=== PATIENT | female | born 1940 | race Caucasian/White ===

== ENCOUNTER 2023-03-04 17:59 | Emergency (ER) | payer MEDICARE, SELFPAY ==
[2023-03-04] VITALS (18 sets, daily range): BP systolic 133–169; BP diastolic 62–87; PULSE 87–95; RESP 16–93; TEMP 36.8; O2SAT 93–95; BMI 29.5
--- NOTE | 2023-03-04 18:14 | ECG_ITS ---
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
--- NOTE | 2023-03-04 18:14 | XR_ITS ---
The [address] [address] Patient Name: CELIO RAMON MRN: [id number] date: 1940 Sex: F Assigned Patient Location: ER Current Patient Location: ER Accession/Order Number: [id number] Exam Date: 03/04/2023 18:30 Report Date: 03/04/2023 18:55 At the request of: KARY CHE Procedure: XR acute abdomen series EXAM: XR acute abdomen series HISTORY: nausea and vomiting COMPARISON: None. TECHNIQUE: Abdominal X-ray, 1 view FINDINGS: Support devices: None. Bowel: Unremarkable bowel gas pattern. No bowel dilatation. Cholecystectomy clips. Surgical sutures are seen along the mid abdomen. Additional findings: Status post right total hip arthroplasty. Bibasilar atelectasis. IMPRESSION: No evidence of bowel obstruction. Electronically authenticated by: MYRANDA GOTTI Date: 03/04/2023 18:55
--- NOTE | 2023-03-04 18:15 | ED.NAVMDI1 ---
HPI - Nausea/Vomiting/Diarrhea General Chief complaint: Nausea/Vomiting/Diarrhea Stated complaint: NAUSEA/VOMITING Time Seen by Provider: 03/04/23 18:05 Source: patient Mode of arrival: law enforcement History of Present Illness HPI Narrative: patient is a 82-year-old female who presents to the emergency department for the evaluation of intermittent feelings of nausea, general bodyaches for the last several months. She saw her doctor yesterday for the symptoms and was ordered to have blood work. She was not prescribed any medications. The medical field representative in the office was not able to obtain a blood specimen so the patient was discharged home with outpatient lab orders. She denies chest pain, shortness of breath. She is agitated at initial interview and is fixated on her relationship with her daughter and how her daughter does not take care of her. She has had no fevers, upper respiratory symptoms, diarrhea. She states she had one episode of emesis earlier today. No medications taken prior to arrival for her symptoms. Related Data Allergies Allergy/AdvReac Type Severity Reaction Status Date / Time No Known Drug Allergies Allergy Verified 03/04/23 18:05 Review of Systems ROS Constitutional Denies: fever or chills Ears, nose, mouth, and throat Denies: throat pain or neck pain Cardiovascular Denies: chest pain Respiratory Denies: shortness of breath or cough Gastrointestinal Reports: nausea and vomiting; Denies: abdominal pain Genitourinary Denies: painful urination Musculoskeletal Denies: back pain Integumentary/Breast Denies: rash Exam Narrative Exam Narrative: Gen.: Awake, alert, in no distress Head: Normocephalic, atraumatic ENT: Moist mucous membranes Respiratory: No respiratory distress, lungs clear bilaterally Cardio: Regular rate and rhythm Gastrointestinal: Abdomen is soft, nondistended and nontender to palpation Extremities: Moves extremities equally, no pedal edema Psych: Normal mood and affect Neuro: No focal neuro deficit Skin: Warm, dry, intact Constitutional Vital Signs - 24 hr 03/04/23 18:08 Temperature 98.2 F Pulse Rate [Monitor] 93 H Respiratory Rate 93 H Blood Pressure [Left Arm] 161/87 H Pulse Oximetry 94 L Oxygen Delivery Method Room Air Course Vital Signs Vital signs: Vital Signs Temperature 98.2 F 03/04/23 18:08 Pulse Rate 93 H 03/04/23 18:08 Respiratory Rate 93 H 03/04/23 18:08 Blood Pressure 161/87 H 03/04/23 18:08 Pulse Oximetry 94 L 03/04/23 18:08 Oxygen Delivery Method Room Air 03/04/23 18:08 Temperature 98.2 F 03/04/23 18:08 Pulse Rate 93 H 03/04/23 18:08 Respiratory Rate 93 H 03/04/23 18:08 Blood Pressure 161/87 H 03/04/23 18:08 Pulse Oximetry 94 L 03/04/23 18:08 Oxygen Delivery Method Room Air 03/04/23 18:08 MDM - Nausea/Vomiting/Diarrhea MDM Narrative Medical decision making narrative: patient was treated with IV fluids, Zofran and abdomen is soft and benign in the emergency department. Patient was found on lab studies have leukocytosis with elevated bilirubin, transaminitis and normal lipase. She initially had abdominal x-rays that were unremarkable and she was sent back for CT of the abdomen and pelvis with IV contrast. This shows the patient has choledocholithiasis with multiple gallstones. I discussed the case with our general surgeon, Dr. Kiran, who recommended the patient be sent out for an ERCP. Patient is in agreement with transfer to [facility]. I discussed the case with nurse practitioner for gastrointestinal and [facility]. Patient was remedicated with Zofran for nausea. She is stable at time of transfer. Zosyn initiated in the emergency department. Critical care time thirty-five minutes Medical Records Attestation: I reviewed the patient's medical records. Lab Data Attestation: I reviewed the patient's lab results. Labs: Lab Results 03/04/23 03/04/23 Range/Units 18:25 20:45 WBC 15.2 H (4.0-11.0) 10^3/uL RBC 4.42 (4.20-5.40) 10^6/uL Hgb 14.1 (12.0-16.0) g/dL Hct 41.2 (36.0-48.0) % MCV 93.2 (81.0-99.0) fL MCH 31.9 (26.7-34.0) pg MCHC 34.2 (29.9-35.2) g/dL RDW 14.7 (11.0-15.0) % Plt Count 328 (150-450) 10^3/uL MPV 9.9 (9.5-13.5) fL Neut % (Auto) 93.8 H (43.0-75.0) % Lymph % (Auto) 2.0 L (20.5-60.0) % [place] % (Auto) 3.5 (1.7-12.0) % Eos % (Auto) 0.0 L (0.9-7.0) % Baso % (Auto) 0.2 (0.2-2.0) % Neut # (Auto) 14.3 H (1.4-6.5) 10^3/uL Lymph # (Auto) 0.3 L (1.2-3.8) 10^3/uL [place] # (Auto) 0.5 (0.3-0.8) 10^3/uL Eos # (Auto) 0.0 (0.0-0.7) 10^3/uL Baso # (Auto) 0.0 (0.0-0.1) 10^3/uL Abs Immat Gran (auto) 0.08 H (0.00-0.03) 10^3/uL Imm/Tot Granulo (auto) 0.5 (0.0-0.5) % Sodium 134 L (136-145) mmol/L Potassium 3.7 (3.5-5.1) mmol/L Chloride 99 (98-107) mmol/L Carbon Dioxide 25.1 (21.0-32.0) mmol/L Anion Gap 13.6 BUN 15.0 (7.0-18.0) mg/dL Creatinine 0.75 (0.55-1.02) mg/dL Est GFR ( Amer) >60 (>=60) Est GFR (Non-Af Amer) >60 (>=60) BUN/Creatinine Ratio 20.0 Glucose 168 H (74-106) mg/dL Lactate 0.8 (0.4-2.0) mmol/L Calcium 9.5 (8.5-10.1) mg/dL Total Bilirubin 5.4 H (0.2-1.0) mg/dL AST 136 H (15-37) U/L ALT 227 H (14-59) U/L Alkaline Phosphatase 940 H (46-116) U/L Troponin I High Sens <4.0 L (4.0-51.3) pg/mL Total Protein 7.8 (6.4-8.2) g/dL Albumin 3.4 (3.4-5.0) g/dL Globulin 4.4 g/dL Albumin/Globulin Ratio 0.8 Lipase 243.0 (73.0-393.0) U/L TSH 1.160 (0.358-3.740) uIU/mL Urine Color Dk. yellow (YELLOW) Urine Clarity Clear (CLEAR) Urine pH 5.5 (5.0-9.0) Ur Specific [place] 1.015 (1.005-1.025) Urine Protein Negative (NEG/TRACE) mg/dL Urine Glucose (UA) Negative (NEGATIVE) mg/dL Urine Ketones 15 A (NEGATIVE) mg/dL Urine Occult Blood Small A (NEGATIVE) Urine Nitrite Negative (NEGATIVE) Urine Bilirubin Small A (NEGATIVE) Urine Urobilinogen 1.0 (0.2-1.0) EU/dL Ur Leukocyte Esterase Negative (NEGATIVE) Urine RBC 2-5 A (0-2) #/HPF Urine WBC None seen (NONE SEEN) #/HPF Ur Squamous Epith Cells Few A (NONE/RARE) #/LPF Urine Crystals None seen (None Seen) #/HPF Urine Bacteria None seen (NONE SEEN) #/HPF Urine Casts Seen A (NONE SEEN) #/LPF Hyaline Casts Rare Urine Mucus None seen (NONE SEEN) Ur Culture Indicated? No Imaging Data Abdominal x-ray: Attestation: I have reviewed the pertinent imaging results. Radiologist's impression: Procedure: XR acute abdomen series EXAM: XR acute abdomen series HISTORY: nausea and vomiting COMPARISON: None. TECHNIQUE: Abdominal X-ray, 1 view FINDINGS: Support devices: None. Bowel: Unremarkable bowel gas pattern. No bowel dilatation. Cholecystectomy clips. Surgical sutures are seen along the mid abdomen. Additional findings: Status post right total hip arthroplasty. Bibasilar atelectasis. IMPRESSION: No evidence of bowel obstruction. Electronically authenticated by: MYRANDA GOTTI Date: 03/04/2023 18:55 CT scan - abdomen: Attestation: I have reviewed the pertinent imaging results. Radiologist's impression: Procedure: CT abdomen pelvis w con EXAM: CT ABDOMEN PELVIS W CON HISTORY: Vomiting and generalized weakness. COMPARISON: None. TECHNIQUE: Enhanced helical acquisition obtained through the abdomen and the pelvis. FINDINGS: Mild nonspecific pulmonary opacities within the included lung bases. The pleural spaces are clear. Multiple gallstones. Intra and extrahepatic biliary ductal dilatation with the common bile duct measuring 1.6 cm in diameter. Choledocholithiasis with multiple calculi identified within the distal common bile duct, the largest calculus measuring approximately 1 cm. The spleen, pancreas and the left adrenal gland are unremarkable. 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 Mild bilateral renal cortical scarring. Left renal cysts, the largest within the superolateral left kidney measuring 6 mm. Moderate-severe diffuse atherosclerotic disease. No enlarged lymph nodes within the abdomen or the pelvis. No ascites or focal intraperitoneal fluid collections. Diverticulosis without radiographic evidence of diverticulitis. Moderate stool burden. The appendix is not identified. IMPRESSION: 1. Choledocholithiasis with associated intra and extrahepatic biliary ductal dilatation. 2. Cholelithiasis. 3. 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 Follow-up assessment with dedicated adrenal MRI could be considered. 4. Diverticulosis without radiographic evidence of diverticulitis. 5. Mild bilateral renal cortical scarring. Subcentimeter left renal cortical cysts. Electronically authenticated by: NENA ASHER Date: 03/04/2023 21:14 ECG Data Attestation: I personally reviewed and interpreted this ECG as follows: (normal sinus rhythm at a rate of ninety-one, no acute ST elevation or ectopy. EKG reviewed by attending physician) ECG interpretation date: 03/04/23 ECG interpretation time: 19:07 Discharge Plan Discharge Chief Complaint: Nausea/Vomiting/Diarrhea Clinical Impression: Choledocholithiasis, Transaminitis, Nausea & vomiting, Cholelithiasis Patient Disposition: [facility] Time of Disposition Decision: 21:37 Discharge Location: [facility] Condition: Good Mode of Transportation: EMS
[2023-03-04 18:32] LABS: Basophils Percent Auto 0.2 % (0.2-2.0); Hematocrit 41.2 % (36.0-48.0); Hemoglobin 14.1 g/dL (12.0-16.0); Immature Granulocytes Abs Auto 0.08 10^3/uL (0.00-0.03); Immature Granulocytes Pct Auto 0.5 % (0.0-0.5); Lymphocytes Absolute Auto 0.3 10^3/uL (1.2-3.8); Mean Corpuscular HGB Conc 34.2 g/dL (29.9-35.2); Mean Corpuscular Hemoglobin 31.9 pg (26.7-34.0); Mean Corpuscular Volume 93.2 fL (81.0-99.0); Mean Platelet Volume 9.9 fL (9.5-13.5); Monocytes Absolute Auto 0.5 10^3/uL (0.3-0.8); Monocytes Percent Auto 3.5 % (1.7-12.0); Neutrophils Absolute Auto 14.3 10^3/uL (1.4-6.5); Neutrophils Percent Auto 93.8 % (43.0-75.0); Platelet Count 328 10^3/uL (150-450); Red Blood Count 4.42 10^6/uL (4.20-5.40); Red Cell Distribution Width 14.7 % (11.0-15.0); White Blood Count 15.2 10^3/uL (4.0-11.0)
[2023-03-04 18:46] LABS: Albumin Globulin Ratio 0.8; Anion Gap 13.6; Globulin 4.4 g/dL
[2023-03-04 18:48] LABS: Lactate/Lactic Acid 0.8 mmol/L (0.4-2.0)
[2023-03-04] MEDS: ONDANSETRON PF 4 MG/2 ML VIAL IV ×2 (18:49→21:29)
[2023-03-04] MEDS: 0.9 % SODIUM CHLORIDE 1,000 ML 999 ML IV (18:49)
[2023-03-04] MEDS: FAMOTIDINE/PF 20 MG/2 ML VIAL IV (18:49)
[2023-03-04 18:55] LABS: Alanine Aminotransferase 227 U/L (14-59); Albumin Level 3.4 g/dL (3.4-5.0); Alkaline Phosphatase 940 U/L (46-116); Aspartate Amino Transferase 136 U/L (15-37); Bilirubin Total 5.4 mg/dL (0.2-1.0); Calcium 9.5 mg/dL (8.5-10.1); Carbon Dioxide 25.1 mmol/L (21.0-32.0); Chloride 99 mmol/L (98-107); Estimated GFR (African America >60 (>=60); Estimated GFR (Non-African Ame >60 (>=60); Glucose 168 mg/dL (74-106); Potassium 3.7 mmol/L (3.5-5.1); Sodium 134 mmol/L (136-145); Total Protein 7.8 g/dL (6.4-8.2); Troponin I High Sensitivity <4.0 pg/mL (4.0-51.3)
--- NOTE | 2023-03-04 19:00 | CT_ITS ---
The [facility] [address] [place], [place] [address] Patient Name: CELIO RAMON MRN: [id number] date: 1940 Sex: F Assigned Patient Location: ER Current Patient Location: ED.MAIN Accession/Order Number: [id number] Exam Date: 03/04/2023 18:20 Report Date: 03/04/2023 21:14 At the request of: KARY CHE Procedure: CT abdomen pelvis w con EXAM: CT ABDOMEN PELVIS W CON HISTORY: Vomiting and generalized weakness. COMPARISON: None. TECHNIQUE: Enhanced helical acquisition obtained through the abdomen and the pelvis. FINDINGS: Mild nonspecific pulmonary opacities within the included lung bases. The pleural spaces are clear. Multiple gallstones. Intra and extrahepatic biliary ductal dilatation with the common bile duct measuring 1.6 cm in diameter. Choledocholithiasis with multiple calculi identified within the distal common bile duct, the largest calculus measuring approximately 1 cm. The spleen, pancreas and the left adrenal gland are unremarkable. 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 Mild bilateral renal cortical scarring. Left renal cysts, the largest within the superolateral left kidney measuring 6 mm. Moderate-severe diffuse atherosclerotic disease. No enlarged lymph nodes within the abdomen or the pelvis. No ascites or focal intraperitoneal fluid collections. Diverticulosis without radiographic evidence of diverticulitis. Moderate stool burden. The appendix is not identified. IMPRESSION: 1. Choledocholithiasis with associated intra and extrahepatic biliary ductal dilatation. 2. Cholelithiasis. 3. 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 Follow-up assessment with dedicated adrenal MRI could be considered. 4. Diverticulosis without radiographic evidence of diverticulitis. 5. Mild bilateral renal cortical scarring. Subcentimeter left renal cortical cysts. Electronically authenticated by: NENA ASHER Date: 03/04/2023 21:14
[2023-03-04 21:14] LABS: Bilirubin Urine SMALL (NEGATIVE); Blood Urine SMALL (NEGATIVE); Clarity Urine CLEAR (CLEAR); Color Urine DK. YELLOW (YELLOW); Glucose Urine UA NEGATIVE (NEGATIVE); Ketones Urine 15 mg/dL (NEGATIVE); Leukocyte Esterase Urine NEGATIVE (NEGATIVE); Nitrite Urine NEGATIVE (NEGATIVE); Protein Urine NEGATIVE (NEG/TRACE); Specific Gravity Urine 1.015 (1.005-1.025); pH Urine 5.5 (5.0-9.0)
[2023-03-04 21:15] LABS: Urine Microscopic Indicated YES
[2023-03-04 21:21] LABS: WBC Urine NONE SEEN #/HPF (NONE SEEN)
[2023-03-04 21:22] LABS: Bacteria Urine NONE SEEN #/HPF (NONE SEEN); Cast Seen? SEEN #/LPF (NONE SEEN); Crystals Seen? None Seen #/HPF (None Seen); Hyaline Casts Urine RARE; Mucus Urine NONE SEEN (NONE SEEN); Squamous Epithelial Cell Urine FEW #/LPF (NONE/RARE); Urine Culture Indicated NO
[2023-03-04] MEDS: PIPERACILLIN SODIUM/TAZOBACTAM 4.5 GM in 0.9 % SODIUM CHLORIDE 50 ML IV (22:22)
[2023-03-05] MEDS: ACETAMINOPHEN 500 MG TABLET 1000 MG PO (00:15)
== END 2023-03-05 00:30 | disposition short-term general hospital (02) ==
PROVIDERS: Physician Assistant; Emergency Provider Emergency Medicine; PCP Family Medicine
DX: K80.70 Calculus of gallbladder and bile duct without cholecystitis without obstruction (principal); R11.2 Nausea with vomiting, unspecified; R74.01 Elevation of levels of liver transaminase levels
CPT/HCPCS: 36415; 74022; 74177; 80053; 81003; 81015; 83605; 83690; 84443; 84484; 85025; 93005; 96374; 96375; 96376; 99285; Q9967

== ENCOUNTER 2024-05-09 00:31 | Emergency (ER) | payer MEDICARE, SELFPAY ==
[2024-05-09 00:34] VITALS: BP 160/80; PULSE 64; TEMP 36.7; O2SAT 99; BMI 34.3
--- NOTE | 2024-05-09 00:48 | ED_ITS ---
HPI HPI - Back Pain/Injury General Chief Complaint: Back Pain/Injury Stated Complaint: back pain Time Seen by Provider: 05/09/24 00:41 Source: patient Mode of arrival: walk-in Limitations: no limitations History of Present Illness HPI Narrative: presents complaining of left sciatica pain for past month. Seen by her PCP and prescribed ibuprofen and tylenol without relief. Seen at another ER and given methadone. She was unhappy with the methadone. States hard to sleep because of the pain. States she does not want a narcotic for the pain. No leg weakness or numbness. No loss of control of bowel or bladder Related Data Home Medications ?Medication ?Instructions ?Recorded ?Confirmed amlodipine 5 mg tablet mg 05/09/24 atorvastatin 10 mg tablet mg 05/09/24 ibuprofen 600 mg tablet mg 05/09/24 lisinopril 40 mg tablet mg 05/09/24 Allergies Allergy/AdvReac Type Severity Reaction Status Date / Time No Known Drug Allergies Allergy Verified 03/04/23 18:05 Opioid HPI Opioid Management Most Recent Opioid Data: No Data to Display Review of Systems ROS Status of ROS 10 or more systems reviewed and unremark able except as noted in history and below Exam Constitutional Vital Signs, click to edit/add: Last Vital Signs Temp 98.1 F 05/09/24 00:34 Pulse 64 05/09/24 00:34 Resp 16 05/09/24 00:34 BP 160/80 H 05/09/24 00:34 Pulse Ox 99 05/09/24 00:34 O2 Del Method Room Air 05/09/24 00:34 Common normals: no apparent distress, average body habitus, oriented x3, no limitations, healthy appearing, alert and well nourished [facility] Common normals: normocephalic and head/scalp atraumatic Eye Common normals: PERRL, EOMs intact bilaterally and conjunctivae normal Respiratory Common normals: normal respiratory effort, no retractions and no use of accessory muscles Cardio Common normals: regular rate, regular rhythm, S1 normal heart sound and S2 normal heart sound GI Common normals: Normal to inspection, nondistended, normoactive bowel sounds present, soft to palpation and non-tender Back & Pelvis Other: left SI tenderness. reproduces pain. No lumbar spine tenderness Extremity Common normals: normal to inspection and full ROM Neuro Common normals: oriented x3, CN's II-XII intact bilaterally, moves all extremities, no focal motor deficits and no sensory deficits noted Psych Appearance: grossly normal Course Vital Signs Vital signs: Vital Signs Temperature 98.1 F 05/09/24 00:34 Pulse Rate 64 05/09/24 00:34 Respiratory Rate 16 05/09/24 00:34 Blood Pressure 160/80 H 05/09/24 00:34 Pulse Oximetry 99 05/09/24 00:34 Oxygen Delivery Method Room Air 05/09/24 00:34 Temperature 98.1 F 05/09/24 00:34 Pulse Rate 64 05/09/24 00:34 Respiratory Rate 16 05/09/24 00:34 Blood Pressure 160/80 H 05/09/24 00:34 Pulse Oximetry 99 05/09/24 00:34 Oxygen Delivery Method Room Air 05/09/24 00:34 MDM - Back Pain/Injury MDM Narrative Medical decision making narrative: presents with left sciatica pain. Pain radiating from left SI joint down her left leg to her foot. No ext weakness. Hard to sleep because of the pain treated in the department and the pain persist but is more tolerable. She is not wanting narcotics for the pain. prescribed Neurontin and discharged home Discharge Plan Discharge Chief Complaint: Back Pain/Injury Clinical Impression: Sciatica Patient Disposition: Home, Self-Care Prescriptions / Home Meds: No Action atorvastatin 10 mg tablet amlodipine 5 mg tablet ibuprofen 600 mg tablet lisinopril 40 mg tablet Print Language: Romanian Instructions: Sciatica (ED) Additional Instructions: follow up with your doctor next week for recheck Referrals: SOCTT DEL VALLE [Primary Care Provider] - 1 week
[2024-05-09] MEDS: GABAPENTIN 300 MG CAPSULE PO (01:19)
[2024-05-09] MEDS: METHYLPREDNISOLONE SOD SUCC PF 125 MG/2 ML VIAL IVP (01:21)
[2024-05-09] MEDS: MAGNESIUM SULFATE IN WATER 2 GM/50 ML PREMIX IV (01:38)
[2024-05-09] MEDS: KETOROLAC TROMETHAMINE 30 MG/ML VIAL IVP (02:59)
== END 2024-05-09 03:18 | disposition home or self-care (01) ==
PROVIDERS: Emergency Provider Internal Medicine; PCP Family Medicine
DX: M54.32 Sciatica, left side (principal)
CPT/HCPCS: 80048; 85652; 86140; 96365; 96375; 99284; J1885; J2919; J3475

== ENCOUNTER 2024-05-25 16:02 | Outpatient (RCR) | payer MEDICARE, SELFPAY | END 2024-07-03 15:26 | disposition home or self-care (01) | LOC: PT 16:02 | PROVIDERS: PCP Family Medicine; Visit Provider Family Medicine | DX: M79.605 Pain in left leg (principal); M54.32 Sciatica, left side; M21.70 Unequal limb length (acquired), unspecified site; M79.18 Myalgia, other site | CPT/HCPCS: 97035; 97110; 97140; 97161; G0283 ==

== ENCOUNTER 2024-07-26 14:17 | Outpatient (OUT) | payer MEDICARE, SELFPAY ==
--- NOTE | 2024-07-26 15:50 | P.CN_ITS ---
Consult Note: HPI Data of Consult Patient: new to practice Consult date: 07/26/24 Requesting Physician: Edwin Tolentino MD Primary Care Provider: SCOTT DEL VALLE Consult Narrative Reason for consult: left low back pain Narrative: 84yof who presents for evaluation. longstanding low back L>R and bilateral lower extremity pain. has completed PT >6 weeks. no recent imaging available for review. uses otc pain meds as needed. cc:: CC: Edwin Tolentino MD Review of Systems ROS Status of ROS 10 or more systems reviewed and unremark able except as noted in history and below Meds Home Medications and Allergies Home Medications ?Medication ?Instructions ?Recorded ?Confirmed ?Type amlodipine 5 mg tablet 5 mg PO DAILY 05/09/24 07/26/24 History atorvastatin 10 mg tablet 10 mg PO DAILY 05/09/24 07/26/24 History ibuprofen 600 mg tablet 600 mg PO Q12H PRN pain 05/09/24 07/26/24 History lisinopril 40 mg tablet 40 mg PO DAILY 05/09/24 07/26/24 History acetaminophen 325 mg tablet 650 mg PO Q6H PRN pain 07/26/24 07/26/24 History (Tylenol) celecoxib 200 mg capsule (Celebrex) 200 mg PO BID 07/26/24 07/26/24 History fluticasone propionate 50 1 spray intranasal DAILY PRN 07/26/24 07/26/24 History mcg/actuation nasal allergy symptoms spray,suspension (Flonase Allergy Relief) furosemide 40 mg tablet (Lasix) 40 mg PO DAILY 07/26/24 07/26/24 History magnesium aspart,citrate,oxide 400 mg PO DAILY 07/26/24 07/26/24 History multivitamin 1 tab PO DAILY 07/26/24 07/26/24 History spironolactone 50 mg tablet 50 mg PO DAILY 07/26/24 07/26/24 History (Aldactone) tizanidine 4 mg capsule (Zanaflex) 4 mg PO Q8H 07/26/24 07/26/24 History Allergies Allergy/AdvReac Type Severity Reaction Status Date / Time No Known Drug Allergies Allergy Verified 03/04/23 18:05 Exam Narrative Exam Narrative: Psych-alert and oriented x 3. Attentive and appropriate, constitutionally normal, displays normal mood and affect per situation.? There are no obvious deficits in memory, reasoning, or intellect.? Skin-no obvious rashes, bruising, erythema noted to the patient's area of pain. Extremities- extremities are warm with minimal edema and palpable pulses. Lumbar-no significant tenderness to palpation noted in the lumbar spine and paraspinal musculature.? Pain is elicited with extension, and lateral rotation of the lumbar spine. Range of motion is slightly diminished with these motions due to pain. Facet loading maneuvers are positive bilaterally and do appear to be concordant with the patient's normal complaints of pain.? Coordination remains intact.? Gait remains non-antalgic. Assessment and Plan Assessment and Plan (1) Lumbar stenosis with neurogenic claudication: (2) Lumbar spondylosis: Plan 84yof who presents for evaluation. failed conservative measures, as noted. given symptoms and exam, will have her undergo xr of sacrum and bilateral hips. she is scheduled for lumbar mri on 07/28. she is in agreement. meds reviewed, no changes. follow up after imaging complete.
== END 2024-07-26 14:18 | disposition home or self-care (01) ==
PROVIDERS: PCP Family Medicine; Visit Provider Anesthesiology
DX: M48.062 Spinal stenosis, lumbar region with neurogenic claudication (principal); M47.816 Spondylosis without myelopathy or radiculopathy, lumbar region
CPT/HCPCS: G0463

== ENCOUNTER 2024-07-28 12:26 | Outpatient (OUT) | payer MEDICARE, SELFPAY ==
--- NOTE | 2024-07-28 12:35 | MR_ITS ---
[address] [address] Patient Name: CELIO RAMON MRN: [facility]:[id number] date: 1940 Sex: F Assigned Patient Location: MRI Current Patient Location: Accession/Order Number: [id number] Exam Date: 07/28/2024 13:00 Report Date: 07/29/2024 08:50 At the request of: SCOTT DEL VALLE Procedure: MR lumbar spine wo con EXAMINATION: MR lumbar spine wo con HISTORY: lumbar radiculopathy m54.6 ; persistent tingling and numbness in bilateral lower extremities. COMPARISON: CT abdomen pelvis 03/04/2023 TECHNIQUE: A variety of imaging planes and parameters were utilized for visualization of suspected pathology. FINDINGS: For the purposes of numbering, sagittal T2 image # 9 extends from the T10 vertebral body superiorly to the S3 level inferiorly. PARASPINAL AREA: 4.0 cm right adrenal mass. BONES: Mild left convex curvature of thoracolumbar spine. No fracture, spondylolisthesis, bone lesion. CORD/CAUDA EQUINA: Normal caliber, contour, and signal intensity. DISC LEVELS: 12-L1: Early degenerative disc disease is present without focal protrusion or neural impingement. L1-L2: Mild foramen narrowing bilaterally without significant central canal narrowing. Mild diffuse disc bulging without disc height reduction. Mild degenerative facet arthropathy bilaterally. L2-L3: Mild central canal and moderate right foramen narrowing. Mild left foramen narrowing. Moderate diffuse disc bulging and mild disc height reduction. Mild-moderate degenerative facet arthropathy bilaterally. L3-L4: Moderate central canal narrowing. Moderate-marked right foramen, moderate left foramen narrowing. Prominent posterior disc osteophyte complex and moderate disc height reduction. Moderate degenerative facet arthropathy bilaterally. L4-L5: Mild central canal narrowing. Mild right, moderate left foramen narrowing. Moderate diffuse disc bulging and moderate disc height reduction. Marked degenerative facet arthropathy, left greater than right. L5-S1: Marked left foramen narrowing. No significant central canal or right foramen narrowing. Moderate diffuse disc bulging eccentric to the left. Moderate right, marked left degenerative facet arthropathy. MR/MR lumbar spine wo con IMPRESSION: 1. L5-S1 marked left foramen narrowing secondary to degenerative disc disease and facet arthropathy. 2. Multilevel moderate foramen narrowing as detailed above. Electronically authenticated by: ORIANA LAURENT Date: 07/29/2024 08:50
== END 2024-07-28 12:27 | disposition home or self-care (01) ==
LOC: MRI 12:28
PROVIDERS: PCP Family Medicine; Visit Provider Family Medicine
DX: M54.16 Radiculopathy, lumbar region (principal)
CPT/HCPCS: 72148

== ENCOUNTER 2024-08-04 12:20 | Outpatient (OUT) | payer MEDICARE, SELFPAY ==
--- NOTE | 2024-08-04 13:01 | P.CN_ITS ---
Consult Note: HPI Data of Consult Patient: known to practice within the last 3 years Consult date: 07/26/24 Requesting Physician: Juliana Rebollar NP Primary Care Provider: SCOTT DEL VALLE Consult Narrative Reason for consult: left low back pain Narrative: Vianca Jackson an agitated 84 year old female who presents for evaluation. longstanding low back L>R and bilateral lower extremity pain. has completed PT >6 weeks. recently underwent lumbar MRI with results below, pt did not complete xray imaging that was previously ordered. uses otc pain meds as needed. is not interested in medication management due to side effects. cc:: CC: Juliana Rebollar NP Review of Systems ROS Status of ROS 10 or more systems reviewed and unremark able except as noted in history and below Musculoskeletal Reports: back pain, extremity pain and joint pain Meds Home Medications and Allergies Home Medications ?Medication ?Instructions ?Recorded ?Confirmed ?Type amlodipine 5 mg tablet 5 mg PO DAILY 05/09/24 07/26/24 History atorvastatin 10 mg tablet 10 mg PO DAILY 05/09/24 07/26/24 History ibuprofen 600 mg tablet 600 mg PO Q12H PRN pain 05/09/24 07/26/24 History lisinopril 40 mg tablet 40 mg PO DAILY 05/09/24 07/26/24 History acetaminophen 325 mg tablet 650 mg PO Q6H PRN pain 07/26/24 07/26/24 History (Tylenol) celecoxib 200 mg capsule (Celebrex) 200 mg PO BID 07/26/24 07/26/24 History fluticasone propionate 50 1 spray intranasal DAILY PRN 07/26/24 07/26/24 History mcg/actuation nasal allergy symptoms spray,suspension (Flonase Allergy Relief) furosemide 40 mg tablet (Lasix) 40 mg PO DAILY 07/26/24 07/26/24 History magnesium aspart,citrate,oxide 400 mg PO DAILY 07/26/24 07/26/24 History multivitamin 1 tab PO DAILY 07/26/24 07/26/24 History spironolactone 50 mg tablet 50 mg PO DAILY 07/26/24 07/26/24 History (Aldactone) tizanidine 4 mg capsule (Zanaflex) 4 mg PO Q8H 07/26/24 07/26/24 History Allergies Allergy/AdvReac Type Severity Reaction Status Date / Time No Known Drug Allergies Allergy Verified 03/04/23 18:05 Exam Constitutional Documenting provider has reviewed patient's vital signs: yes Common normals: no apparent distress, oriented x3, healthy appearing, alert and well nourished General appearance: cooperative HENMT Common normals: normocephalic, hearing grossly normal bilaterally and moist oral mucous membranes Head and scalp: normocephalic Eye Common normals: PERRL Pupil: PERRL Neck & C-Spine Common normals: full ROM General: normal visual inspection Chest Common normals: inspection of chest normal Respiratory Common normals: normal respiratory effort, no retractions and no use of accessory muscles Back & Pelvis Lumbar spine/lower back: ROM limited, pain with ROM and straight leg raise positive left; straight leg raise negative right Sacroiliac joints: SI joint(s) abnormal Other: left positive colton(patricks), gaenslens, thigh thrust, compression test strength 5/5 in BLE positive facet loading Extremity Common normals: normal to inspection and full ROM Neuro Common normals: oriented x3, CN's II-XII intact bilaterally, moves all extremities, no focal motor deficits, no sensory deficits noted, deep tendon reflexes 2+ bilaterally and gait normal Sensorium/orientation: alert Motor exam: strength 5/5 throughout and no movement abnormalities noted Psych Common normals: mental status grossly normal, thought process normal, affect normal, speech normal and activity/motor behavior normal Attitude: evasive and agitated; not calm and not aggressive Speech: normal speech Thought process: normal thought process Results Imaging Lumbar MRI : Attestation: I have reviewed the pertinent imaging results. Radiologist's impression: 12-L1: Early degenerative disc disease is present without focal protrusion or neural impingement. L1-L2: Mild foramen narrowing bilaterally without significant central canal narrowing. Mild diffuse disc bulging without disc height reduction. Mild degenerative facet arthropathy bilaterally. L2-L3: Mild central canal and moderate right foramen narrowing. Mild left foramen narrowing. Moderate diffuse disc bulging and mild disc height reduction. Mild-moderate degenerative facet arthropathy bilaterally. L3-L4: Moderate central canal narrowing. Moderate-marked right foramen, moderate left foramen narrowing. Prominent posterior disc osteophyte complex and moderate disc height reduction. Moderate degenerative facet arthropathy bilaterally. L4-L5: Mild central canal narrowing. Mild right, moderate left foramen narrowing. Moderate diffuse disc bulging and moderate disc height reduction. Marked degenerative facet arthropathy, left greater than right. L5-S1: Marked left foramen narrowing. No significant central canal or right foramen narrowing. Moderate diffuse disc bulging eccentric to the left. Moderate right, marked left degenerative facet arthropathy. Additional Findings Additional findings: If on a controlled substance or opioids, I have checked an [place] report on this patient and there are no aberrancies noted in the prescribing history.??If on a controlled substance or opioid a drug screen was completed and reviewed within the last year, and if there has not been a drug screen completed we ordered one today to monitor higher risk, state monitored pain medication use. As part of providing excellent, safe, comprehensive care, the following was completed at our patient's visit: 1. A medication reconciliation and review to ensure accurate knowledge of current/active medications, including asking our patients to inform us about any [id number] medications or herbal remedies/nutritional supplements/alternative remedies. 2. A review to specifically ensure our patients have had annual screening for screening for depression, screening for tobacco use, and screening for unhealthy alcohol use. For concerning screenings had a discussion with the patient, provided patient education, and recommended follow-up with primary care provider when appropriate. If patient noted with a risk of falling, they received education on strength, gait, and balance training to prevent future risk of falling. Assessment and Plan Assessment and Plan (1) Lumbar stenosis with neurogenic claudication: (2) Sacroiliitis: (3) Lumbar spondylosis: Plan Lumbar MRI reviewed with pt and daughter, pt very agitated and wants to discuss BLE. I redirected the pt and advised her to f/u with her PCP. pt agreeable to left L4-5 L5-S1 TFESI under fluoroscopy, consider left SIJ injection if needed defer medication management per pt request f/u after injection
== END 2024-08-04 12:21 | disposition home or self-care (01) ==
LOC: PM 12:21
PROVIDERS: PCP Family Medicine; Visit Provider Nurse Practitioner
DX: M25.551 Pain in right hip (principal); M25.552 Pain in left hip; M54.50 Low back pain, unspecified; Z96.641 Presence of right artificial hip joint; M48.062 Spinal stenosis, lumbar region with neurogenic claudication; M46.1 Sacroiliitis, not elsewhere classified; M47.816 Spondylosis without myelopathy or radiculopathy, lumbar region
CPT/HCPCS: 72220; 73522; G0463

== ENCOUNTER 2024-08-04 13:24 | Outpatient (OUT) | payer MEDICARE, SELFPAY ==
--- NOTE | 2024-08-04 13:51 | XR_ITS ---
The [address] [address] Patient Name: CELIO RAMON MRN: [id number] date: 1940 Sex: F Assigned Patient Location: [facility] Current Patient Location: [facility] Accession/Order Number: [id number] Exam Date: 08/04/2024 14:05 Report Date: 08/04/2024 15:27 At the request of: ANI OGLESBY Procedure: XR hip OJ EXAMINATION: XR hip OJ HISTORY: Hip Pain, Lumbago COMPARISON: No relevant comparison available. FINDINGS: RIGHT FINDINGS: BONES: Total hip arthroplasty with a long stem femoral component and cerclage wires. No acute fracture, dislocation or mechanical failure SOFT TISSUES: Negative. No visible soft tissue swelling. OTHER: Negative. LEFT FINDINGS: BONES: Mild to moderate osteoarthropathy with joint space narrowing and marginal osteophyte formation SOFT TISSUES: Negative. No visible soft tissue swelling. OTHER: Negative. XR/XR hip OJ IMPRESSION: RIGHT CONCLUSION: Arthroplasty LEFT CONCLUSION: Mild to moderate arthritis Electronically authenticated by: SEJAL MEIER Date: 08/04/2024 15:27
--- NOTE | 2024-08-04 13:51 | XR_ITS ---
The [address] [address] Patient Name: CELIO RAMON MRN: [id number] date: 1940 Sex: F Assigned Patient Location: [facility] Current Patient Location: Accession/Order Number: [id number] Exam Date: 08/04/2024 14:05 Report Date: 08/05/2024 07:41 At the request of: ANDRI GIEDRAITIS Procedure: XR sacrum coccyx min 2V PROCEDURE: XR sacrum coccyx min 2V COMPARISON: None. HISTORY: Hip Pain, Lumbago FINDINGS: SACRUM: No fracture, disruption of the sacral ala line, or cortical irregularity. COCCYX: No fracture or suspicious alignment. SOFT TISSUES: No widening of the sacroiliac joints. No radiopaque foreign body. OTHER: Degenerative changes of the spine XR/XR sacrum coccyx min 2V IMPRESSION: No acute abnormality Electronically authenticated by: SEJAL MEIER Date: 08/05/2024 07:41
== END 2024-08-04 13:25 | disposition home or self-care (01) ==
LOC: RAD 13:27
PROVIDERS: PCP Family Medicine; Visit Provider Anesthesiology
DX: M25.551 Pain in right hip (principal); M25.552 Pain in left hip; M54.50 Low back pain, unspecified; Z96.641 Presence of right artificial hip joint
CPT/HCPCS: 72220; 73522

== ENCOUNTER 2024-08-16 10:20 | Day surgery (SDC) | payer MEDICARE, SELFPAY ==
[2024-08-16 10:31] VITALS: BP 152/86; PULSE 83; TEMP 36.3; O2SAT 99
--- OUTSIDE RECORDS SUMMARY | 2024-08-16 10:44 | XMS_ITS | CCD ---
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 FINDINGS: Vertebral heights are normal. There is no evidence of compression fracture, spondylolisthesis or acute bony pathology. There is a levoscoliosis. There are diffuse and advanced disc degenerative changes in the lower thoracic and lumbar spine with hypertrophic osteophytes and reduction of disc spaces at all levels. Pedicles are intact. Mild facet arthropathy seen in the lower lumbar region. Both sacroiliac joints are intact. There are aortic calcifications. There is evidence of prior cholecystectomy. IMPRESSION: * Diffusion advance degenerative changes in the lower thoracic and lumbar spine with hypertrophic osteophytes and reduction of disc spaces at all levels in the lumbar region. Facet arthropathy seen in the lower lumbar spine. * Levoscoliosis but no evidence of spondylolisthesis or acute bony pathology. Finalized by Karson Ty MD on 05/01/2024 11:15 AM Normal [facility] CALCIUMon 01-15-2024 Calcium [Mass/Vol] 9.2 mg/dL Normal 8.5-10.5 [facility] Comment on above: Performed By: #### 1 7861-6, [employer], 21594-4 #### [facility] ([id number]) [address], [address] [place] [address] CREATININEon 01-15-2024 Creatinine [Mass/Vol] 0.69 mg/dL Normal 0.40-1.00 [facility] Comment on above: Result Comment: METH OD TRACEABLE TO IDMS STANDARD Performed By: #### 1 7861-6, [employer], 76264-3 #### [facility] ([id number]) [address], [address] [place] [address] GFR/1.73 sq M.predicted among non-blacks MDRD (S/P/Bld) [Vol rate/Area] 86 mL/min/{1.73_m2} Normal >59 [facility] Comment on above: Result Comment: Reported eGFR is based on the CKD-EPI 2020 equation that does not use a race coefficient. Performed By: #### 1 7861-6, [employer], 62192-8 #### [facility] ([id number]) [address], [address] [place] [address] Vitamin D+Metabolites [Mass/ Vol]on 01-15-2024 VITAMIN D 25 HYD TOT 39.4 ng/mL Normal 30-100 [facility] Comment on above: Result Comment: Vitamin D status 25 [place] Vitamin D Deficiency <20 ng/mL Insufficiency 20-29 ng/mL Sufficiency 30-100 ng/mL Toxicity >100 ng/mL NOTE: A pediatric reference range has not been established by the setter juice packaging machines of this kit. The [place] [employer] recommends a Vitamin D level of = or >20ng/mL in infants and children. Performed By: #### 1 7861-6, [employer], 80032-6 #### [facility] ([id number]) [address], [address] [place] [address] DXA Skeletal system Views fo r bone densityon 11-10-2023 [facility] Radiology Study observation (narrative) [facility] CBC without diffon Erythrocyte distribution width (RBC) [Ratio] 13.5 % 11.5 - 15.0 % [facility] Hematocrit (Bld) [Volume fraction] 42.8 % 35 - 47 % [facility] Hemoglobin (Bld) [Mass/Vol] 14.5 g/dL 11.7 - 15.5 g/dL [facility] MCH (RBC) [Entitic mass] 32.2 pg 27 - 34 pg [facility] MCHC (RBC) [Mass/Vol] 33.9 g/dL 32 - 36 g/dL [facility] MCV (RBC) [Entitic vol] 95 fL 80 - 100 fL [facility] Platelet mean volume (Bld) [Entitic vol] 8.9 fL 7 - 12 fL [facility] Platelets (Bld) [#/Vol] 278 10*3/uL [facility] RBC (Bld) [#/Vol] 4.50 10*6/uL [facility] WBC corrected for nucl RBC Auto (Bld) [#/Vol] 6.2 [facility] COMPLETE BLOOD COUNTon 09-30 Erythrocyte distribution width (RBC) [Ratio] 13.5 % Normal 11.5-15.0 [facility] Comment on above: Performed By: #### 3 016-3, 33000-5, CBC, CMP #### [facility] ([id number]) [address], [address] [place] [address] Hematocrit (Bld) [Volume fraction] 42.8 % Normal 35-47 [facility] Comment on above: Performed By: #### 3 016-3, 60558-2, CBC, CMP #### [facility] ([id number]) [address], [address] [place] [address] Hemoglobin (Bld) [Mass/Vol] 14.5 g/dL Normal 11.7-15.5 [facility] Comment on above: Performed By: #### 3 016-3, 45734-4, CBC, CMP #### [facility] ([id number]) [address], [address] [place] [address] MCH (RBC) [Entitic mass] 32.2 pg Normal 27-34 [facility] Comment on above: Performed By: #### 3 016-3, 03635-1, CBC, CMP #### [facility] ([id number]) [address], [address] [place] [address] MCHC (RBC) [Mass/Vol] 33.9 g/dL Normal 32-36 [facility] Comment on above: Performed By: #### 3 016-3, 61427-4, CBC, CMP #### [facility] ([id number]) [address], [facility] [address] [place] [address] MCV (RBC) [Entitic vol] 95 fL Normal 80-100 [facility] Comment on above: Performed By: #### 3 016-3, 91000-9, CBC, CMP #### [facility] ([id number]) [address], [facility] [address] [place] [address] Platelet mean volume (Bld) [Entitic vol] 8.9 fL Normal 7-12 [facility] Comment on above: Performed By: #### 3 016-3, 95291-3, CBC, CMP #### [facility] ([id number]) [address], [facility] [address] [place] [address] Platelets (Bld) [#/Vol] 278 10*3/uL Normal 150-450 [facility] Comment on above: Performed By: #### 3 016-3, 85885-4, CBC, CMP #### [facility] ([id number]) [address], [facility] [address] [place] [address] RBC COUNT 4.50 X10E12/L Normal 3.80-5.20 [facility] Comment on above: Performed By: #### 3 016-3, 45534-9, CBC, CMP #### [facility] ([id number]) [address], [facility] [address] [place] [address] WBC (Bld) [#/Vol] 6.2 10*3/uL Normal 4.0-11.0 [facility] Comment on above: Performed By: #### 3 016-3, 26544-8, CBC, CMP #### [facility] ([id number]) [address], [address] [place] [address] COMPREHENSIVE METABOLIC PANE Sandeep 09-30-2023 Albumin [Mass/Vol] 4.2 g/dL Normal 3.2-5.3 [facility] Comment on above: Performed By: #### 3 016-3, 43462-3, CBC, CMP #### [facility] ([id number]) [address], [address] [place] [address] ALP [Catalytic activity/Vol] 92 U/L Normal 39-130 [facility] Comment on above: Performed By: #### 3 016-3, 12740-7, CBC, CMP #### [facility] ([id number]) [address], [address] [place] [address] ALT [Catalytic activity/Vol] 22 U/L Normal 0-31 [facility] Comment on above: Performed By: #### 3 016-3, 92949-4, CBC, CMP #### [facility] ([id number]) [address], [address] [place] [address] Anion gap [Moles/Vol] 12 mmol/L Normal 5-15 [facility] Comment on above: Performed By: #### 3 016-3, 30024-9, CBC, CMP #### [facility] ([id number]) [address], [address] [place] [address] AST [Catalytic activity/Vol] 19 U/L Normal 0-41 [facility] Comment on above: Performed By: #### 3 016-3, 04134-8, CBC, CMP #### [facility] ([id number]) [address], [address] [place] [address] Bilirubin [Mass/Vol] 0.5 mg/dL Normal 0.3-1.2 [facility] Comment on above: Performed By: #### 3 016-3, 39700-6, CBC, CMP #### [facility] ([id number]) [address], [address] [place] [address] Calcium [Mass/Vol] 8.9 mg/dL Normal 8.5-10.5 [facility] Comment on above: Performed By: #### 3 016-3, 61569-7, CBC, CMP #### [facility] ([id number]) [address], [address] [place] [address] Chloride [Moles/Vol] 104 mmol/L Normal 98-109 [facility] Comment on above: Performed By: #### 3 -3, 46094-8, CBC, CMP #### [facility] ([id number]) [address], [address] [place] [address] CO2 [Moles/Vol] 23 mmol/L Normal 22-32 [facility] Comment on above: Performed By: #### 3 -3, 05949-7, CBC, CMP #### [facility] ([id number]) [address], [address] [place] [address] Creatinine [Mass/Vol] 0.74 mg/dL Normal 0.40-1.00 [facility] Comment on above: Result Comment: METH OD TRACEABLE TO IDMS STANDARD Performed By: #### 3 -3, 44557-5, CBC, CMP #### [facility] ([id number]) [address], [address] [place] [address] GFR/1.73 sq M.predicted among non-blacks MDRD (S/P/Bld) [Vol rate/Area] 80 mL/min/{1.73_m2} Normal >59 [facility] Comment on above: Result Comment: Reported eGFR is based on the CKD-EPI 2020 equation that does not use a race coefficient. Performed By: #### 3 -3, 46263-5, CBC, CMP #### [facility] ([id number]) [address], [address] [place] [address] Glucose [Mass/Vol] 83 mg/dL Normal 65-99 [facility] Comment on above: Performed By: #### 3 -3, 15425-4, CBC, CMP #### [facility] ([id number]) [address], [address] [address] Potassium [Moles/Vol] 4.1 mmol/L Normal 3.5-5.0 [facility] Comment on above: Performed By: #### 3 016-3, 21686-1, CBC, CMP #### [facility] ([id number]) [address], [address] [address] Protein [Mass/Vol] 7.4 g/dL Normal 6.0-8.0 [facility] Comment on above: Performed By: #### 3 016-3, 88107-2, CBC, CMP #### [facility] ([id number]) [address], [address] [place] [address] Sodium [Moles/Vol] 139 mmol/L Normal 134-146 [facility] Comment on above: Performed By: #### 3 016-3, 60607-6, CBC, CMP #### [facility] ([id number]) [address], [address] [address] Urea nitrogen [Mass/Vol] 26 mg/dL Normal 5-27 [facility] Comment on above: Performed By: #### 3 016-3, 50863-1, CBC, CMP #### [facility] ([id number]) [address], [address] [address] Comprehensive metabolic pane sandeep 09-30-2023 Albumin [Mass/Vol] 4.2 g/dL 3.2 - 5.3 g/dL [facility] ALP [Catalytic activity/Vol] 92 U/L 39 - 130 U/L [facility] ALT No additional P-5'-P [Catalytic activity/Vol] 22 U/L 0 - 31 U/L [facility] Anion gap [Moles/Vol] 12 mmol/L 5 - 15 mmol/L [facility] AST [Catalytic activity/Vol] 19 U/L 0 - 41 U/L [facility] Bilirubin [Mass/Vol] 0.5 mg/dL 0.3 - 1.2 mg/dL [facility] Calcium [Mass/Vol] 8.9 mg/dL 8.5 - 10. 5 mg/dL [facility] Chloride [Moles/Vol] 104 mmol/L 98 - 109 mmol/L [facility] CO2 [Moles/Vol] 23 mmol/L 22 - 32 mmol/L [facility] Creatinine [Mass/Vol] 0.74 mg/dL 0.40 - 1.00 mg/dL [facility] Comment on above: METHOD TRACEABLE TO [facility] STANDARD eGFR (CKD-EPI)non-race dependent 80 - PINF [facility] Comment on above: Reported eGFR is based on the CKD-EPI 2020 equation that does not use a race coefficient. Glucose [Mass/Vol] 83 mg/dL 65 - 99 mg/dL [facility] Potassium [Moles/Vol] 4.1 mmol/L 3.5 - 5.0 mmol/L [facility] Protein [Mass/Vol] 7.4 g/dL 6.0 - 8.0 g/dL [facility] Sodium [Moles/Vol] 139 mmol/L 134 - 146 mmol/L [facility] Urea nitrogen [Mass/Vol] 26 mg/dL 5 - 27 mg/dL [facility] Lipid 1996 panelon 4 Cholesterol [Mass/Vol] 226 mg/dL High 150 - 200 mg/dL [facility] Cholesterol in HDL [Mass/Vol] 46 mg/dL 39 - PINF mg/dL [facility] Comment on above: HDL <40 mg/dL - High Risk HDL > or = 40mg/dL- Desirable HDL >60 mg/dL - Negative Risk Cholesterol in LDL [Mass/Vol] 132 mg/dL High NINF - 130 mg/dL [facility] Comment on above: LDL <100 mg/dL - Desirable LDL >160 mg/dL - High Risk Cholesterol in VLDL [Mass/Vol] 48 mg/dL High 0 - 30 mg/dL [facility] Cholesterol.total/C holesterol in HDL [Mass ratio] 4.9 {ratio} 1.0 - 5.0 [facility] Interpretation and review of laboratory results Abnormal [facility] Triglyceride [Mass/Vol] 241 mg/dL High 27 - 150 mg/dL [facility] Cholesterol [Mass/Vol] 226 mg/dL High 150-200 [facility] Comment on above: Performed By: #### 3 016-3, 75084-8, CBC, CMP #### [facility] ([id number]) [address], [address] [place] [address] Cholesterol in HDL [Mass/Vol] 46 mg/dL Normal >39 [facility] Comment on above: Result Comment: HDL <40 mg/dL - High Risk HDL > or = 40mg/dL- Desirable HDL >60 mg/dL - Negative Risk Performed By: #### 3 016-3, 59723-7, CBC, CMP #### [facility] ([id number]) [address], [address] [place] [address] Cholesterol in LDL [Mass/Vol] 132 mg/dL High <130 [facility] Comment on above: Result Comment: LDL <100 mg/dL - Desirable LDL >160 mg/dL - High Risk Performed By: #### 3 016-3, 98987-2, CBC, CMP #### [facility] ([id number]) [address], [address] [place] [address] Cholesterol in VLDL [Mass/Vol] 48 mg/dL High 0-30 [facility] Comment on above: Performed By: #### 3 016-3, 15827-1, CBC, CMP #### [facility] ([id number]) [address], [address] [place] [address] CHOLESTEROL:HDL 4.9 Normal 1.0-5.0 [facility] Comment on above: Performed By: #### 3 016-3, 13141-6, CBC, CMP #### [facility] ([id number]) [address] [place] [address] Triglyceride [Mass/Vol] 241 mg/dL High 27-150 [facility] Comment on above: Performed By: #### 3 016-3, 31050-7, CBC, CMP #### [facility] ([id number]) [address], [address] [place] [address] No Panel Informationon 09-30 [facility] TSHon 09-30-2023 TSH Qn 3.07 m[IU]/L [facility] TSH Qnon 09-30-2023 [facility] TSH 3.07 uIU/mL Normal 0.49-4.67 [facility] Comment on above: Performed By: #### 3 016-3, 36741-2, CBC, CMP #### [facility] ([id number]) [address], [address] [place] [address] Basic Metabolic Profon 03-11 Anion gap [Moles/Vol] 12 mmol/L Normal 9-17 [facility] Comment on above: Performed By: #### C DP, CPBILX #### [facility] [employer] [address] [place] [address] Size Tester: Ismael Lawson MD Calcium [Mass/Vol] 7.8 mg/dL Low 8.6-10.4 [facility] Comment on above: Performed By: #### C DP, CPBILX #### [facility] [employer] [facility] [place] [address] Size Tester: Ismael Lawson MD Chloride [Moles/Vol] 99 mmol/L Normal 98-107 [facility] Comment on above: Performed By: #### C DP, CPBILX #### [facility] [address] [place] [address] Size Tester: Ismael Lawson MD CO2 [Moles/Vol] 23 mmol/L Normal 20-31 [facility] Comment on above: Performed By: #### C DP, CPBILX #### [facility] [employer] [address] [place] [address] Size Tester: Ismael Lawson MD Creatinine [Mass/Vol] 0.4 mg/dL Low 0.5-0.9 [facility] Comment on above: Performed By: #### C DP, CPBILX #### [facility] [employer] [address] [place] [address] Size Tester: Ismael Lawson MD GFR/1.73 sq M.predicted among non-blacks MDRD (S/P/Bld) [Vol rate/Area] mL/min/{1.73_m2} Normal >60 [facility] Comment on above: Result Comment: These results are not intended for use in patients <18 years of age. eGFR results are calculated without a race factor using the 2020 CKD-EPI equation. Careful clinical correlation is recommended, particularly when comparing to results calculated using previous equations. The CKD-EPI equation is less accurate in patients with extremes of muscle mass, extra-renal metabolism of creatine, excessive creatine ingestion, or following therapy that affects renal tubular secretion. Performed By: #### C DP, CPBILX #### [facility] [employer] [address] [place] [address] Size Tester: Ismael Lawson MD Glucose [Mass/Vol] 89 mg/dL Normal 70-99 [facility] Comment on above: Performed By: #### C DP, CPBILX #### [facility] [employer] [address] [place] [address] Size Tester: Ismael Lawson MD Potassium [Moles/Vol] 3.7 mmol/L Normal 3.7-5.3 [facility] Comment on above: Performed By: #### C DP, CPBILX #### [facility] [employer] [address] [place] [address] Size Tester: Ismael Lawson MD Sodium [Moles/Vol] 134 mmol/L Low 135-144 [facility] Comment on above: Performed By: #### C DP, CPBILX #### [facility] [employer] [address] [place] [address] Size Tester: Ismael Lawson MD Urea nitrogen [Mass/Vol] 9 mg/dL Normal 8-23 [facility] Comment on above: Performed By: #### C DP, CPBILX #### [facility] [employer] [address] [place] [address] Size Tester: Ismael Lawson MD CBC with Diffon 03-11-2023 Abs. Basophil 0.00 k/uL Normal 0.0-0.2 [facility] Comment on above: Performed By: #### C DP, CPBILX #### [facility] [employer] [address] [place] [address] Size Tester: Ismael Lawson MD Abs.Imm.Granulocyte 0.69 k/uL High 0.00-0.30 [facility] Comment on above: Performed By: #### C DP, CPBILX #### [facility] [employer] [address] [place] [address] Size Tester: Ismael Lawson MD Abs.Neutrophil (Seg) 9.88 k/uL High 1.8-7.7 [facility] Comment on above: Performed By: #### C DP, CPBILX #### [facility] [address] [place] [address] Size Tester: Ismael Lawson MD Basophils/100 WBC (Bld) 0 % Normal 0-2 [facility] Comment on above: Performed By: #### C DP, CPBILX #### [address] [address] Size Tester: Ismael Lawson MD Eosinophils (Bld) [#/Vol] 0.12 10*3/uL Normal 0.0-0.4 [facility] Comment on above: Performed By: #### C DP, CPBILX #### [address] [address] Size Tester: Ismael Lawson MD Eosinophils/100 WBC (Bld) 1 % Normal 1-4 [facility] Comment on above: Performed By: #### C DP, CPBILX #### [address] [address] Size Tester: Ismael Lawson MD Immature granulocytes/100 WBC (Bld) 6 % High 0 [facility] Comment on above: Performed By: #### C DP, CPBILX #### [address] [address] Size Tester: Ismael Lawson MD Lymphocytes (Bld) [#/Vol] 0.69 10*3/uL Low 1.0-4.8 [facility] Comment on above: Performed By: #### C DP, CPBILX #### [address] [address] Size Tester: Ismael Lawson MD Lymphocytes/100 WBC (Bld) 6 % Low 24-44 [facility] Comment on above: Performed By: #### C DP, CPBILX #### [address] [address] Size Tester: Ismael Lawson MD Monocytes (Bld) [#/Vol] 0.12 10*3/uL Normal 0.1-0.8 [facility] Comment on above: Performed By: #### C DP, CPBILX #### [address] [address] Size Tester: Ismael Lawson MD Monocytes/100 WBC (Bld) 1 % Normal 1-7 [facility] Comment on above: Performed By: #### C DP, CPBILX #### [address] [address] Size Tester: Ismael Lawson MD Morphology [place] (Bld) [Interp] Normal Normal [facility] Comment on above: Performed By: #### C DP, CPBILX #### [address] [address] Size Tester: Ismael Lawson MD Neutrophil (Seg) 86 % High 36-66 [facility] Comment on above: Performed By: #### C DP, CPBILX #### [address] [address] Size Tester: Ismael Lawson MD Erythrocyte distribution width (RBC) [Ratio] 14.3 % Normal 11.8-14.4 [facility] Comment on above: Performed By: #### C DP, CPBILX #### [address] [address] Size Tester: Ismael Lawson MD Hematocrit (Bld) [Volume fraction] 33.6 % Low 36.3-47.1 [facility] Comment on above: Performed By: #### C DP, CPBILX #### [address] [address] Size Tester: Ismael Lawson MD Hemoglobin (Bld) [Mass/Vol] 11.4 g/dL Low 11.9-15.1 [facility] Comment on above: Performed By: #### C DP, CPBILX #### [address] [address] Size Tester: Ismael Lawson MD MCH (RBC) [Entitic mass] 31.8 pg Normal 25.2-33.5 [facility] Comment on above: Performed By: #### C DP, CPBILX #### [place] [address] Size Tester: Ismael Lawson MD MCHC (RBC) [Mass/Vol] 33.9 g/dL Normal 28.4-34.8 [facility] Comment on above: Performed By: #### C DP, CPBILX #### [address] [address] Size Tester: Ismael Lawson MD MCV (RBC) [Entitic vol] 93.9 fL Normal 82.6-102.9 [facility] Comment on above: Performed By: #### C DP, CPBILX #### [address] [address] Size Tester: Ismael Lawson MD NRBC Automated 0.0 per 100 WBC Normal 0.0 [facility] Comment on above: Performed By: #### C DP, CPBILX #### [place] [address] Size Tester: Ismael Lawson MD Platelet mean volume (Bld) [Entitic vol] 10.4 fL Normal 8.1-13.5 [facility] Comment on above: Performed By: #### C DP, CPBILX #### [address] [address] Size Tester: Ismael Lawson MD Platelets (Bld) [#/Vol] 293 10*3/uL Normal 138-453 [facility] Comment on above: Performed By: #### C DP, CPBILX #### [address] [address] Size Tester: Ismael Lawson MD RBC (Bld) [#/Vol] 3.58 10*6/uL Low 3.95-5.11 [facility] Comment on above: Performed By: #### C DP, CPBILX #### [address] [address] Size Tester: Ismael Lawson MD WBC (Bld) [#/Vol] 11.5 10*3/uL High 3.5-11.3 [facility] Comment on above: Performed By: #### C DP, CPBILX #### [address] [address] Size Tester: Ismael Lawson MD Liver Profileon 03-11-2023 Albumin [Mass/Vol] 2.5 g/dL Low 3.5-5.2 [facility] Comment on above: Performed By: #### C DP, CPBILX #### [address] [address] Size Tester: Ismael Lawson MD Albumin/Glob Ratio 0.9 Low 1.0-2.5 [facility] Comment on above: Performed By: #### C DP, CPBILX #### [facility] [employer] [address] [place] [address] Size Tester: Ismael Lawson MD Alkaline Phos 503 U/L High 35-104 [facility] Comment on above: Performed By: #### C DP, CPBILX #### [address] [address] Size Tester: Ismael Lawson MD ALT [Catalytic activity/Vol] 80 U/L High 5-33 [facility] Comment on above: Performed By: #### C DP, CPBILX #### [facility] [employer] [address] [place] [address] [place] [address] Size Tester: Ismael Lawson MD AST [Catalytic activity/Vol] 50 U/L High <32 [facility] Comment on above: Performed By: #### C DP, CPBILX #### [facility] [address] [place] [address] Size Tester: Ismael Lawson MD Bilirubin [Mass/Vol] 1.4 mg/dL High 0.3-1.2 [facility] Comment on above: Performed By: #### C DP, CPBILX #### [facility] [address] [place] [address] Size Tester: Ismael Lawson MD Bilirubin, Indirect 0.7 mg/dL Normal 0.0-1.0 [facility] Comment on above: Performed By: #### C DP, CPBILX #### [facility] [address] [place] [address] Size Tester: Ismael Lawson MD Bilirubin.indirect [Mass/Vol] 0.7 mg/dL High <0.3 [facility] Comment on above: Performed By: #### C DP, CPBILX #### [facility] [address] [place] [address] Size Tester: Ismael Lawson MD Protein [Mass/Vol] 5.2 g/dL Low 6.4-8.3 [facility] Comment on above: Performed By: #### C DP, CPBILX #### [facility] [place] [address] Size Tester: Ismael Lawson MD Basic Metabolic Profon 03-10 Anion gap [Moles/Vol] 12 mmol/L Normal 9-17 [facility] Comment on above: Performed By: #### C DP, CPBILX #### [facility] [address] [place] [address] Size Tester: Ismael Lawson MD Calcium [Mass/Vol] 8.1 mg/dL Low 8.6-10.4 [facility] Comment on above: Performed By: #### C DP, CPBILX #### [address] [address] Size Tester: Ismael Lawson MD Chloride [Moles/Vol] 100 mmol/L Normal 98-107 [facility] Comment on above: Performed By: #### C DP, CPBILX #### [address] [address] Size Tester: Ismael Lawson MD CO2 [Moles/Vol] 22 mmol/L Normal 20-31 [facility] Comment on above: Performed By: #### C DP, CPBILX #### [address] [address] Size Tester: Ismael Lawson MD Creatinine [Mass/Vol] 0.3 mg/dL Low 0.50-0.90 [facility] Comment on above: Performed By: #### C DP, CPBILX #### [address] [address] Size Tester: Ismael Lawson MD GFR/1.73 sq M.predicted among non-blacks MDRD (S/P/Bld) [Vol rate/Area] mL/min/{1.73_m2} Normal >60 [facility] Comment on above: Result Comment: These results are not intended for use in patients <18 years of age. eGFR results are calculated without a race factor using the 2020 CKD-EPI equation. Careful clinical correlation is recommended, particularly when comparing to results calculated using previous equations. The CKD-EPI equation is less accurate in patients with extremes of muscle mass, extra-renal metabolism of creatine, excessive creatine ingestion, or following therapy that affects renal tubular secretion. Performed By: #### C DP, CPBILX #### [address] [address] Size Tester: Ismael Lawson MD Glucose [Mass/Vol] 81 mg/dL Normal 70-99 [facility] Comment on above: Performed By: #### C DP, CPBILX #### [facility] [employer] [address] [place] [address] Size Tester: Ismael Lawson MD Potassium [Moles/Vol] 3.3 mmol/L Low 3.7-5.3 [facility] Comment on above: Performed By: #### C DP, CPBILX #### [facility] [employer] [address] [place] [address] Size Tester: Ismael Lawson MD Sodium [Moles/Vol] 134 mmol/L Low 135-144 [facility] Comment on above: Performed By: #### C DP, CPBILX #### [facility] [employer] [address] [place] [address] Size Tester: Ismael Lawson MD Urea nitrogen [Mass/Vol] 8 mg/dL Normal 8-23 [facility] Comment on above: Performed By: #### C DP, CPBILX #### [facility] [employer] [address] [place] [address] Size Tester: Ismael Lawson MD CBC with Diffon 03-10-2023 Abs. Basophil 0.00 k/uL Normal 0.0-0.2 [facility] Comment on above: Performed By: #### C DP, CPBILX #### [facility] [employer] [address] [place] [address] Size Tester: Ismael Lawson MD Abs.Imm.Granulocyte 0.41 k/uL High 0.00-0.30 [facility] Comment on above: Performed By: #### C DP, CPBILX #### [facility] [employer] [address] [place] [address] Size Tester: Ismael Lawson MD Abs.Neutrophil (Seg) 11.83 k/uL High 1.8-7.7 [facility] Comment on above: Performed By: #### C DP, CPBILX #### [address] [address] Size Tester: Ismael Lawson MD Basophils/100 WBC (Bld) 0 % Normal 0-2 [facility] Comment on above: Performed By: #### C DP, CPBILX #### [place] [address] Size Tester: Ismael Lawson MD Eosinophils (Bld) [#/Vol] 0.14 10*3/uL Normal 0.0-0.4 [facility] Comment on above: Performed By: #### C DP, CPBILX #### [place] [address] Size Tester: Ismael Lawson MD Eosinophils/100 WBC (Bld) 1 % Normal 1-4 [facility] Comment on above: Performed By: #### C DP, CPBILX #### [place] [address] Size Tester: Ismael Lawson MD Immature granulocytes/100 WBC (Bld) 3 % High 0 [facility] Comment on above: Performed By: #### C DP, CPBILX #### [place] [address] Size Tester: Ismael Lawson MD Lymphocytes (Bld) [#/Vol] 0.54 10*3/uL Low 1.0-4.8 [facility] Comment on above: Performed By: #### C DP, CPBILX #### [address] [address] Size Tester: Ismael Lawson MD Lymphocytes/100 WBC (Bld) 4 % Low 24-44 [facility] Comment on above: Performed By: #### C DP, CPBILX #### [address] [address] Size Tester: Ismael Lawson MD Monocytes (Bld) [#/Vol] 0.68 10*3/uL Normal 0.1-0.8 [facility] Comment on above: Performed By: #### C DP, CPBILX #### [address] [address] Size Tester: Ismael Lawson MD Monocytes/100 WBC (Bld) 5 % Normal 1-7 [facility] Comment on above: Performed By: #### C DP, CPBILX #### [address] [address] Size Tester: Ismael Lawson MD Morphology Fracisoc (Bld) [Interp] ANISOCYTOSIS PRESENT Normal [facility] Comment on above: Performed By: #### C DP, CPBILX #### [address] [address] Size Tester: Ismael Lawson MD Neutrophil (Seg) 87 % High 36-66 [facility] Comment on above: Performed By: #### C DP, CPBILX #### [address] [address] Size Tester: Ismael Lawson MD Erythrocyte distribution width (RBC) [Ratio] 14.5 % High 11.8-14.4 [facility] Comment on above: Performed By: #### C DP, CPBILX #### [address] [address] Size Tester: Ismael Lawson MD Hematocrit (Bld) [Volume fraction] 34.0 % Low 36.3-47.1 [facility] Comment on above: Performed By: #### C DP, CPBILX #### [address] [address] Size Tester: Ismael Lawson MD Hemoglobin (Bld) [Mass/Vol] 11.4 g/dL Low 11.9-15.1 [facility] Comment on above: Performed By: #### C DP, CPBILX #### [address] [address] Size Tester: Ismael Lawson MD MCH (RBC) [Entitic mass] 32.1 pg Normal 25.2-33.5 [facility] Comment on above: Performed By: #### C DP, CPBILX #### [address] [address] Size Tester: Ismael Lawson MD MCHC (RBC) [Mass/Vol] 33.5 g/dL Normal 28.4-34.8 [facility] Comment on above: Performed By: #### C DP, CPBILX #### [address] [address] Size Tester: Ismael Lawson MD MCV (RBC) [Entitic vol] 95.8 fL Normal 82.6-102.9 [facility] Comment on above: Performed By: #### C DP, CPBILX #### [address] [address] Size Tester: Ismael Lawson MD NRBC Automated 0.0 per 100 WBC Normal 0.0 [facility] Comment on above: Performed By: #### C DP, CPBILX #### [address] [address] Size Tester: Ismael Lawson MD Platelet mean volume (Bld) [Entitic vol] 10.6 fL Normal 8.1-13.5 [facility] Comment on above: Performed By: #### C DP, CPBILX #### [address] [address] Size Tester: Ismael Lawson MD Platelets (Bld) [#/Vol] 298 10*3/uL Normal 138-453 [facility] Comment on above: Performed By: #### C DP, CPBILX #### [facility] [place] [address] Size Tester: Ismael Lawson MD RBC (Bld) [#/Vol] 3.55 10*6/uL Low 3.95-5.11 [facility] Comment on above: Performed By: #### C DP, CPBILX #### [facility] [address] [place] [address] Size Tester: Ismael Lawson MD WBC (Bld) [#/Vol] 13.6 10*3/uL High 3.5-11.3 [facility] Comment on above: Performed By: #### C DP, CPBILX #### [facility] [employer] [address] [place] [address] Size Tester: Ismael aLwson MD Liver Profileon 03-10-2023 Albumin [Mass/Vol] 2.5 g/dL Low 3.5-5.2 [facility] Comment on above: Performed By: #### C DP, CPBILX #### [facility] [employer] [address] [place] [address] Size Tester: Ismael Lawson MD Albumin/Glob Ratio 0.8 Low 1.0-2.5 [facility] Comment on above: Performed By: #### C DP, CPBILX #### [facility] [employer] [facility] [place] [address] Size Tester: Ismael Lawson MD Alkaline Phos 550 U/L High 35-104 [facility] Comment on above: Performed By: #### C DP, CPBILX #### [facility] [employer] [address] [place] [address] Size Tester: Ismael aLwson MD ALT [Catalytic activity/Vol] 88 U/L High 5-33 [facility] Comment on above: Performed By: #### C DP, CPBILX #### [facility] [employer] [address] [place] [address] Size Tester: Ismael Lawson MD AST [Catalytic activity/Vol] 49 U/L High <32 [facility] Comment on above: Performed By: #### C DP, CPBILX #### [facility] [employer] [address] [place] [address] Size Tester: Ismael Lawson MD Bilirubin [Mass/Vol] 1.9 mg/dL High 0.3-1.2 [facility] Comment on above: Performed By: #### C DP, CPBILX #### [address] [address] Size Tester: Ismael Lawson MD Bilirubin, Indirect 0.9 mg/dL Normal 0.0-1.0 [facility] Comment on above: Performed By: #### C DP, CPBILX #### [address] [address] Size Tester: Ismael Lawson MD Bilirubin.indirect [Mass/Vol] 1.0 mg/dL High <0.3 [facility] Comment on above: Performed By: #### C DP, CPBILX #### [facility] [employer] [address] [place] [address] Size Tester: Ismael Lawson MD Protein [Mass/Vol] 5.6 g/dL Low 6.4-8.3 [facility] Comment on above: Performed By: #### C DP, CPBILX #### [facility] [employer] [address] [place] [address] Size Tester: Ismael Lawson MD CBC with Diffon 03-09-2023 Abs. Basophil 0.07 k/uL Normal 0.00-0.20 [facility] Comment on above: Performed By: #### C DP, CP #### [place] [address] Size Tester: Ismael Lawson MD Abs.Imm.Granulocyte 0.29 k/uL Normal 0.00-0.30 [facility] Comment on above: Performed By: #### C DP, CP #### [place] [address] Size Tester: Ismael Lawson MD Abs.Neutrophil (Seg) 10.40 k/uL High 1.50-8.10 [facility] Comment on above: Performed By: #### C DP, CP #### [place] [address] Size Tester: Ismael Lawson MD Basophils/100 WBC (Bld) 1 % Normal 0-2 [facility] Comment on above: Performed By: #### C DP, CP #### [place] [address] Size Tester: Ismael Lawson MD Eosinophils (Bld) [#/Vol] 0.09 10*3/uL Normal 0.00-0.44 [facility] Comment on above: Performed By: #### C DP, CP #### [place] [address] Size Tester: Ismael Lawson MD Eosinophils/100 WBC (Bld) 1 % Normal 1-4 [facility] Comment on above: Performed By: #### C DP, CP #### [place] [address] Size Tester: Ismael Lawson MD Erythrocyte distribution width (RBC) [Ratio] 15.3 % High 11.8-14.4 [facility] Comment on above: Performed By: #### C DP, CP #### [address] [place] [address] Size Tester: Ismael Lawson MD Hematocrit (Bld) [Volume fraction] 36.4 % Normal 36.3-47.1 [facility] Comment on above: Performed By: #### C DP, CP #### [address] [address] Size Tester: Ismael Lawson MD Hemoglobin (Bld) [Mass/Vol] 11.9 g/dL Normal 11.9-15.1 [facility] Comment on above: Performed By: #### C DP, CP #### [address] [address] Size Tester: Ismael Lawson MD Immature granulocytes/100 WBC (Bld) 2 % High 0 [facility] Comment on above: Performed By: #### C DP, CP #### [address] [address] Size Tester: Ismael Lawson MD Lymphocytes (Bld) [#/Vol] 0.89 10*3/uL Low 1.10-3.70 [facility] Comment on above: Performed By: #### C DP, CP #### [address] [address] Size Tester: Ismael Lawson MD Lymphocytes/100 WBC (Bld) 7 % Low 24-43 [facility] Comment on above: Performed By: #### C DP, CP #### [address] [address] Size Tester: Ismael Lawson MD MCH (RBC) [Entitic mass] 32.4 pg Normal 25.2-33.5 [facility] Comment on above: Performed By: #### C DP, CP #### [address] [address] Size Tester: Ismael Lawson MD MCHC (RBC) [Mass/Vol] 32.7 g/dL Normal 28.4-34.8 [facility] Comment on above: Performed By: #### C DP, CP #### [address] [address] Size Tester: Ismael Lawson MD MCV (RBC) [Entitic vol] 99.2 fL Normal 82.6-102.9 [facility] Comment on above: Performed By: #### C DP, CP #### [address] [address] Size Tester: Ismael Lawson MD Monocytes (Bld) [#/Vol] 0.57 10*3/uL Normal 0.10-1.20 [facility] Comment on above: Performed By: #### C DP, CP #### [place] [address] Size Tester: Ismael Lawson MD Monocytes/100 WBC (Bld) 5 % Normal 3-12 [facility] Comment on above: Performed By: #### C DP, CP #### [address] [address] Size Tester: Ismael Lawson MD Neutrophil (Seg) 84 % High 36-65 [facility] Comment on above: Performed By: #### C DP, CP #### [address] [address] Size Tester: Ismael Lawson MD NRBC Automated 0.0 per 100 WBC Normal 0.0 [facility] Comment on above: Performed By: #### C DP, CP #### [address] [address] Size Tester: Ismael Lawson MD Platelet mean volume (Bld) [Entitic vol] 10.4 fL Normal 8.1-13.5 [facility] Comment on above: Performed By: #### C DP, CP #### [address] [address] Size Tester: Ismael Lawson MD Platelets (Bld) [#/Vol] 287 10*3/uL Normal 138-453 [facility] Comment on above: Performed By: #### C DP, CP #### [address] [address] Size Tester: Ismael Lawson MD RBC (Bld) [#/Vol] 3.67 10*6/uL Low 3.95-5.11 [facility] Comment on above: Performed By: #### C DP, CP #### [address] [address] Size Tester: Ismael Lawson MD RBC morphology finding Nom (Bld) ANISOCYTOSIS PRESENT Normal [facility] Comment on above: Performed By: #### C DP, CP #### [address] [address] Size Tester: Ismael Lawson MD WBC (Bld) [#/Vol] 12.3 10*3/uL High 3.5-11.3 [facility] Comment on above: Performed By: #### C DP, CP #### [address] [address] Size Tester: Ismael Lawson MD Comp Metabolic Profon 2022 Creatinine [Mass/Vol] 0.38 mg/dL Low 0.50-0.90 [facility] Comment on above: Result Comment: ICTE AGATA SPECIMEN Performed By: #### C DP, CP #### [address] [address] Size Tester: Ismael Lawson MD GFR/1.73 sq M.predicted among non-blacks MDRD (S/P/Bld) [Vol rate/Area] mL/min/{1.73_m2} Normal >60 [facility] Comment on above: Result Comment: These results are not intended for use in patients <18 years of age. eGFR results are calculated without a race factor using the 2020 CKD-EPI equation. Careful clinical correlation is recommended, particularly when comparing to results calculated using previous equations. The CKD-EPI equation is less accurate in patients with extremes of muscle mass, extra-renal metabolism of creatine, excessive creatine ingestion, or following therapy that affects renal tubular secretion. Performed By: #### C DP, CP #### [address] [address] Size Tester: Ismael Lawson MD Albumin [Mass/Vol] 2.5 g/dL Low 3.5-5.2 [facility] Comment on above: Performed By: #### C DP, CP #### [address] [address] Size Tester: Ismael Lawson MD Albumin/Glob Ratio 0.8 Low 1.0-2.5 [facility] Comment on above: Performed By: #### C DP, CP #### [address] [address] Size Tester: Ismael Lawson MD Alkaline Phos 555 U/L High 35-104 [facility] Comment on above: Performed By: #### C DP, CP #### [address] [address] Size Tester: Ismael Lawson MD ALT [Catalytic activity/Vol] 122 U/L High 5-33 [facility] Comment on above: Performed By: #### C DP, CP #### [address] [address] Size Tester: Ismael Lawson MD Anion gap [Moles/Vol] 9 mmol/L Normal 9-17 [facility] Comment on above: Performed By: #### C DP, CP #### [address] [address] Size Tester: Ismael Lawson MD AST [Catalytic activity/Vol] 71 U/L High <32 [facility] Comment on above: Performed By: #### C DP, CP #### [address] [address] Size Tester: Ismael Lawson MD Bilirubin [Mass/Vol] 2.6 mg/dL High 0.3-1.2 [facility] Comment on above: Performed By: #### C DP, CP #### [address] [address] Size Tester: Ismael Lawson MD Calcium [Mass/Vol] 8.3 mg/dL Low 8.6-10.4 [facility] Comment on above: Performed By: #### C DP, CP #### [address] [address] Size Tester: Ismael Lawson MD Chloride [Moles/Vol] 102 mmol/L Normal 98-107 [facility] Comment on above: Performed By: #### C DP, CP #### [address] [address] Size Tester: Ismael Lawson MD CO2 [Moles/Vol] 23 mmol/L Normal 20-31 [facility] Comment on above: Performed By: #### C DP, CP #### [address] [address] Size Tester: Ismael Lawson MD Glucose [Mass/Vol] 104 mg/dL High 70-99 [facility] Comment on above: Performed By: #### C DP, CP #### [address] [address] Size Tester: Ismael Lawson MD Potassium [Moles/Vol] 3.3 mmol/L Low 3.7-5.3 [facility] Comment on above: Performed By: #### C DP, CP #### [address] [address] Size Tester: Ismael Lwason MD Protein [Mass/Vol] 5.8 g/dL Low 6.4-8.3 [facility] Comment on above: Performed By: #### C DP, CP #### [facility] [employer] [address] [place] [address] Size Tester: Ismael Lawson MD Sodium [Moles/Vol] 134 mmol/L Low 135-144 [facility] Comment on above: Performed By: #### C DP, CP #### [facility] [address] [place] [address] Size Tester: Ismael Lawson MD Urea nitrogen [Mass/Vol] 9 mg/dL Normal 04-23 [facility] Comment on above: Performed By: #### C DP, CP #### [facility] [address] [place] [address] Size Tester: Ismael Lawson MD XR ABDOMEN (KUB) (SINGLE AP VIEW)on 03-09-2023 XR ABDOMEN (KUB) (SINGLE AP VIEW) EXAMINATION: ONE SUPINE XRAY VIEW(S) OF THE ABDOMEN 03/09/2023 5:34 pm COMPARISON: None. HISTORY: ORDERING SYSTEM PROVIDED HISTORY: Post op emesis, eval ileus TECHNOLOGIST PROVIDED HISTORY: Post op emesis, eval ileus Reason for Exam: port sup. post op emesis, eval ileus. FINDINGS: Nonobstructive bowel gas pattern. No abnormal calcification. No evidence of pneumoperitoneum. Probable small left pleural effusion.. Drain overlying the right lower quadrant. Multiple wires overlie the midline abdomen and upper pelvis. Right hip arthroplasty. Degenerative changes of the lumbar spine. Surgical clips in the right lower quadrant. IMPRESSION: No acute abnormality. Probable small left pleural effusion. Interpreted by: Bhavik Londono DO Signed by: Bhavik Londono DO 03/09/23 Final result Normal [facility] CBCon 03-08-2023 Erythrocyte distribution width (RBC) [Ratio] 15.2 % High 11.8-14.4 [facility] Comment on above: Performed By: #### C MPX, MG, TRIG, SIVA, LIP, IOCAL #### [address] [address] Size Tester: Ismael Lawson MD Hematocrit (Bld) [Volume fraction] 36.0 % Low 36.3-47.1 [facility] Comment on above: Performed By: #### C MPX, MG, TRIG, SIVA, LIP, IOCAL #### [address] [address] Size Tester: Ismael Lawson MD Hemoglobin (Bld) [Mass/Vol] 12.0 g/dL Normal 11.9-15.1 [facility] Comment on above: Performed By: #### C MPX, MG, TRIG, SIVA, LIP, IOCAL #### [address] [address] Size Tester: Ismael Lawson MD MCH (RBC) [Entitic mass] 32.6 pg Normal 25.2-33.5 [facility] Comment on above: Performed By: #### C MPX, MG, TRIG, SIVA, LIP, IOCAL #### [address] [address] Size Tester: Ismael Lawson MD MCHC (RBC) [Mass/Vol] 33.3 g/dL Normal 28.4-34.8 [facility] Comment on above: Performed By: #### C MPX, MG, TRIG, SIVA, LIP, IOCAL #### [address] [address] Size Tester: Ismael Lawson MD MCV (RBC) [Entitic vol] 97.8 fL Normal 82.6-102.9 [facility] Comment on above: Performed By: #### C MPX, MG, TRIG, SIVA, LIP, IOCAL #### [address] [address] Size Tester: Ismael Lawson MD NRBC Automated 0.0 per 100 WBC Normal 0.0 [facility] Comment on above: Performed By: #### C MPX, MG, TRIG, SIVA, LIP, IOCAL #### [address] [address] Size Tester: Ismael Lawson MD Platelet mean volume (Bld) [Entitic vol] 11.0 fL Normal 8.1-13.5 [facility] Comment on above: Performed By: #### C MPX, MG, TRIG, SIVA, LIP, IOCAL #### [address] [address] Size Tester: Ismael Lawson MD Platelets (Bld) [#/Vol] 327 10*3/uL Normal 138-453 [facility] Comment on above: Performed By: #### C MPX, MG, TRIG, SIVA, LIP, IOCAL #### [address] [address] Size Tester: Ismael Lawson MD RBC (Bld) [#/Vol] 3.68 10*6/uL Low 3.95-5.11 [facility] Comment on above: Performed By: #### C MPX, MG, TRIG, SIVA, LIP, IOCAL #### [address] [address] Size Tester: Ismael Lawson MD WBC (Bld) [#/Vol] 12.0 10*3/uL High 3.5-11.3 [facility] Comment on above: Performed By: #### C MPX, MG, TRIG, SIVA, LIP, IOCAL #### [address] [address] Size Tester: Ismael Lawson MD Calcium, [employer] 03-08-2023 Calcium [Moles/Vol] 1.12 mmol/L Low 1.13-1.33 [facility] Comment on above: Performed By: #### C MPX, MG, TRIG, SIVA, LIP, IOCAL #### [facility] [employer] [address] [place] [address] [phone] Size Tester: Ismael Lawson MD Comp Metab w/Bili Pron 03-08 Creatinine [Mass/Vol] 0.50 mg/dL Normal 0.50-0.90 [facility] Comment on above: Result Comment: ICTE AGATA SPECIMEN Performed By: #### C MPX, MG, TRIG, SIVA, LIP, IOCAL #### [facility] [employer] [address] [place] [address] [phone] Size Tester: Ismael Lawson MD GFR/1.73 sq M.predicted among non-blacks MDRD (S/P/Bld) [Vol rate/Area] mL/min/{1.73_m2} Normal >60 [facility] Comment on above: Result Comment: These results are not intended for use in patients <18 years of age. eGFR results are calculated without a race factor using the 2020 CKD-EPI equation. Careful clinical correlation is recommended, particularly when comparing to results calculated using previous equations. The CKD-EPI equation is less accurate in patients with extremes of muscle mass, extra-renal metabolism of creatine, excessive creatine ingestion, or following therapy that affects renal tubular secretion. Performed By: #### C MPX, MG, TRIG, SIVA, LIP, IOCAL #### [facility] [employer] [address] [place] [phone] Size Tester: Ismael Lawson MD Albumin [Mass/Vol] 2.8 g/dL Low 3.5-5.2 [facility] Comment on above: Performed By: #### C MPX, MG, TRIG, SIVA, LIP, IOCAL #### [facility] [employer] [address] [place] [address] [phone] Size Tester: Ismael Lawson MD Albumin/Glob Ratio 0.9 Low 1.0-2.5 [facility] Comment on above: Performed By: #### C MPX, MG, TRIG, SIVA, LIP, IOCAL #### [address] [address] Size Tester: Ismael Lawson MD Alkaline Phos 623 U/L High 35-104 [facility] Comment on above: Performed By: #### C MPX, MG, TRIG, SIVA, LIP, IOCAL #### [address] [address] Size Tester: Ismale Lawson MD ALT [Catalytic activity/Vol] 153 U/L High 5-33 [facility] Comment on above: Performed By: #### C MPX, MG, TRIG, SIVA, LIP, IOCAL #### [address] [address] Size Tester: Ismael Lawson MD Anion gap [Moles/Vol] 11 mmol/L Normal 9-17 [facility] Comment on above: Performed By: #### C MPX, MG, TRIG, SIVA, LIP, IOCAL #### [address] [address] Size Tester: Ismael Lawson MD AST [Catalytic activity/Vol] 121 U/L High <32 [facility] Comment on above: Performed By: #### C MPX, MG, TRIG, SIVA, LIP, IOCAL #### [facility] [employer] [address] [place] [address] Size Tester: Ismael Lawson MD Bilirubin [Mass/Vol] 3.0 mg/dL High 0.3-1.2 [facility] Comment on above: Performed By: #### C MPX, MG, TRIG, SIVA, LIP, IOCAL #### [facility] [employer] [address] [place] [address] Size Tester: Ismael Lawson MD Bilirubin, Indirect 1.6 mg/dL High 0.0-1.0 [facility] Comment on above: Performed By: #### C MPX, MG, TRIG, SIVA, LIP, IOCAL #### [address] [address] Size Tester: Ismael Lawson MD Bilirubin.indirect [Mass/Vol] 1.4 mg/dL High <0.3 [facility] Comment on above: Performed By: #### C MPX, MG, TRIG, SIVA, LIP, IOCAL #### [address] [address] Size Tester: Ismael Lawson MD Calcium [Mass/Vol] 8.4 mg/dL Low 8.6-10.4 [facility] Comment on above: Performed By: #### C MPX, MG, TRIG, SIVA, LIP, IOCAL #### [address] [address] Size Tester: Ismael Lawson MD Chloride [Moles/Vol] 104 mmol/L Normal 98-107 [facility] Comment on above: Performed By: #### C MPX, MG, TRIG, SIVA, LIP, IOCAL #### [address] [address] Size Tester: Ismael Lawson MD CO2 [Moles/Vol] 22 mmol/L Normal 20-31 [facility] Comment on above: Performed By: #### C MPX, MG, TRIG, SIVA, LIP, IOCAL #### [address] [address] Size Tester: Ismael Lawson MD Glucose [Mass/Vol] 146 mg/dL High 70-99 [facility] Comment on above: Performed By: #### C MPX, MG, TRIG, SIVA, LIP, IOCAL #### [facility] [employer] [address] [place] [address] Size Tester: Ismael Lawson MD Potassium [Moles/Vol] 4.1 mmol/L Normal 3.7-5.3 [facility] Comment on above: Performed By: #### C MPX, MG, TRIG, SIVA, LIP, IOCAL #### [facility] [employer] [address] [place] [address] Size Tester: Ismael Lawson MD Protein [Mass/Vol] 5.9 g/dL Low 6.4-8.3 [facility] Comment on above: Performed By: #### C MPX, MG, TRIG, SIVA, LIP, IOCAL #### [facility] [employer] [address] [place] [address] Size Tester: Ismael Lawson MD Sodium [Moles/Vol] 137 mmol/L Normal 135-144 [facility] Comment on above: Performed By: #### C MPX, MG, TRIG, SIVA, LIP, IOCAL #### [facility] [employer] [address] [place] [address] Size Tester: Ismael Lawson MD Urea nitrogen [Mass/Vol] 13 mg/dL Normal 8-23 [facility] Comment on above: Performed By: #### C MPX, MG, TRIG, SIVA, LIP, IOCAL #### [facility] [employer] [address] [place] [address] Size Tester: Ismael Lawson MD CBC with Diffon 03-07-2023 Abs. Basophil 0.03 k/uL Normal 0.00-0.20 [facility] Comment on above: Performed By: #### C MPX, MG, TRIG, SIVA, LIP, IOCAL #### [facility] [employer] [address] [place] [address] Size Tester: Ismael Lawson MD Abs.Imm.Granulocyte 0.12 k/uL Normal 0.00-0.30 [facility] Comment on above: Performed By: #### C MPX, MG, TRIG, SIVA, LIP, IOCAL #### [address] [address] Size Tester: Ismael Lawson MD Abs.Neutrophil (Seg) 8.46 k/uL High 1.50-8.10 [facility] Comment on above: Performed By: #### C MPX, MG, TRIG, SIVA, LIP, IOCAL #### [address] [address] Size Tester: Ismael Lawson MD Basophils/100 WBC (Bld) 0 % Normal 0-2 [facility] Comment on above: Performed By: #### C MPX, MG, TRIG, SIVA, LIP, IOCAL #### [place] [address] Size Tester: Ismael Lawson MD Eosinophils (Bld) [#/Vol] 0.03 10*3/uL Normal 0.00-0.44 [facility] Comment on above: Performed By: #### C MPX, MG, TRIG, SIVA, LIP, IOCAL #### [place] [address] Size Tester: Ismael Lawson MD Eosinophils/100 WBC (Bld) 0 % Low 1-4 [facility] Comment on above: Performed By: #### C MPX, MG, TRIG, SIVA, LIP, IOCAL #### [place] [address] Size Tester: Ismael Lawson MD Erythrocyte distribution width (RBC) [Ratio] 15.1 % High 11.8-14.4 [facility] Comment on above: Performed By: #### C MPX, MG, TRIG, SIVA, LIP, IOCAL #### [facility] [employer] [address] [place] [address] Size Tester: Ismael Lawson MD Hematocrit (Bld) [Volume fraction] 33.3 % Low 36.3-47.1 [facility] Comment on above: Performed By: #### C MPX, MG, TRIG, SIVA, LIP, IOCAL #### [address] [address] Size Tester: Ismael Lawson MD Hemoglobin (Bld) [Mass/Vol] 11.4 g/dL Low 11.9-15.1 [facility] Comment on above: Performed By: #### C MPX, MG, TRIG, SIVA, LIP, IOCAL #### [place] [address] Size Tester: Ismael Lawson MD Immature granulocytes/100 WBC (Bld) 1 % High 0 [facility] Comment on above: Performed By: #### C MPX, MG, TRIG, SIVA, LIP, IOCAL #### [place] [address] Size Tester: Ismael Lawson MD Lymphocytes (Bld) [#/Vol] 0.86 10*3/uL Low 1.10-3.70 [facility] Comment on above: Performed By: #### C MPX, MG, TRIG, SIVA, LIP, IOCAL #### [place] [address] Size Tester: Ismael Lawson MD Lymphocytes/100 WBC (Bld) 8 % Low 24-43 [facility] Comment on above: Performed By: #### C MPX, MG, TRIG, SIVA, LIP, IOCAL #### [place] [address] Size Tester: Ismael Lawson MD MCH (RBC) [Entitic mass] 33.2 pg Normal 25.2-33.5 [facility] Comment on above: Performed By: #### C MPX, MG, TRIG, SIVA, LIP, IOCAL #### [address] [place] [address] Size Tester: Ismael Lawson MD MCHC (RBC) [Mass/Vol] 34.2 g/dL Normal 28.4-34.8 [facility] Comment on above: Performed By: #### C MPX, MG, TRIG, SIVA, LIP, IOCAL #### [address] [address] Size Tester: Ismael Lawson MD MCV (RBC) [Entitic vol] 97.1 fL Normal 82.6-102.9 [facility] Comment on above: Performed By: #### C MPX, MG, TRIG, SIVA, LIP, IOCAL #### [address] [address] Size Tester: Ismael Lawson MD Monocytes (Bld) [#/Vol] 0.71 10*3/uL Normal 0.10-1.20 [facility] Comment on above: Performed By: #### C MPX, MG, TRIG, SIVA, LIP, IOCAL #### [address] [address] Size Tester: Ismael Lawson MD Monocytes/100 WBC (Bld) 7 % Normal 3-12 [facility] Comment on above: Performed By: #### C MPX, MG, TRIG, SIVA, LIP, IOCAL #### [address] [address] Size Tester: Ismael Lawson MD Neutrophil (Seg) 84 % High 36-65 [facility] Comment on above: Performed By: #### C MPX, MG, TRIG, SIVA, LIP, IOCAL #### [address] [address] Size Tester: Ismael Lawson MD NRBC Automated 0.0 per 100 WBC Normal 0.0 [facility] Comment on above: Performed By: #### C MPX, MG, TRIG, SIVA, LIP, IOCAL #### [address] [address] Size Tester: Ismael Lawson MD Platelet mean volume (Bld) [Entitic vol] 11.4 fL Normal 8.1-13.5 [facility] Comment on above: Performed By: #### C MPX, MG, TRIG, SIVA, LIP, IOCAL #### [address] [address] Size Tester: Ismael Lawson MD Platelets (Bld) [#/Vol] 260 10*3/uL Normal 138-453 [facility] Comment on above: Performed By: #### C MPX, MG, TRIG, SIVA, LIP, IOCAL #### [address] [address] Size Tester: Ismael Lawson MD RBC (Bld) [#/Vol] 3.43 10*6/uL Low 3.95-5.11 [facility] Comment on above: Performed By: #### C MPX, MG, TRIG, SIVA, LIP, IOCAL #### [address] [address] Size Tester: Ismael Lawson MD RBC morphology finding Nom (Bld) ANISOCYTOSIS PRESENT Normal [facility] Comment on above: Performed By: #### C MPX, MG, TRIG, SIVA, LIP, IOCAL #### [address] [address] Size Tester: Ismael Lawson MD WBC (Bld) [#/Vol] 10.2 10*3/uL Normal 3.5-11.3 [facility] Comment on above: Performed By: #### C MPX, MG, TRIG, SIVA, LIP, IOCAL #### [address] [address] Size Tester: Ismael Lawson MD Comp Met+Bili/rfx MGon 03-07 Creatinine [Mass/Vol] 0.49 mg/dL Low 0.50-0.90 [facility] Comment on above: Result Comment: ICTE AGATA SPECIMEN Performed By: #### C MPX, MG, TRIG, SIVA, LIP, IOCAL #### [address] [id number] Size Tester: Ismael Lawson MD GFR/1.73 sq M.predicted among non-blacks MDRD (S/P/Bld) [Vol rate/Area] mL/min/{1.73_m2} Normal >60 [facility] Comment on above: Result Comment: These results are not intended for use in patients <18 years of age. eGFR results are calculated without a race factor using the 2020 CKD-EPI equation. Careful clinical correlation is recommended, particularly when comparing to results calculated using previous equations. The CKD-EPI equation is less accurate in patients with extremes of muscle mass, extra-renal metabolism of creatine, excessive creatine ingestion, or following therapy that affects renal tubular secretion. Performed By: #### C MPX, MG, TRIG, SIVA, LIP, IOCAL #### [address] [address] Size Tester: Ismael Lawson MD Albumin [Mass/Vol] 2.6 g/dL Low 3.5-5.2 [facility] Comment on above: Performed By: #### C MPX, MG, TRIG, SIVA, LIP, IOCAL #### [facility] [employer] [address] [place] [address] Size Tester: Ismael Lawson MD Albumin/Glob Ratio 0.8 Low 1.0-2.5 [facility] Comment on above: Performed By: #### C MPX, MG, TRIG, SIVA, LIP, IOCAL #### [facility] [employer] [address] [place] [address] [phone] Size Tester: Ismael Lawson MD Alkaline Phos 652 U/L High 35-104 [facility] Comment on above: Performed By: #### C MPX, MG, TRIG, SIVA, LIP, IOCAL #### [address] [address] Size Tester: Ismael Lawson MD ALT [Catalytic activity/Vol] 100 U/L High 5-33 [facility] Comment on above: Performed By: #### C MPX, MG, TRIG, SIVA, LIP, IOCAL #### [address] [address] Size Tester: Ismael Lawson MD Anion gap [Moles/Vol] 10 mmol/L Normal 9-17 [facility] Comment on above: Performed By: #### C MPX, MG, TRIG, SIVA, LIP, IOCAL #### [address] [address] Size Tester: Ismael Lawson MD AST [Catalytic activity/Vol] 55 U/L High <32 [facility] Comment on above: Performed By: #### C MPX, MG, TRIG, SIVA, LIP, IOCAL #### [address] [address] Size Tester: Ismael Lawson MD Bilirubin [Mass/Vol] 3.6 mg/dL High 0.3-1.2 [facility] Comment on above: Performed By: #### C MPX, MG, TRIG, SIVA, LIP, IOCAL #### [address] [address] Size Tester: Ismael Lawson MD Bilirubin, Indirect 1.5 mg/dL High 0.0-1.0 [facility] Comment on above: Performed By: #### C MPX, MG, TRIG, SIVA, LIP, IOCAL #### [address] [address] Size Tester: Ismael Lawson MD Bilirubin.indirect [Mass/Vol] 2.1 mg/dL High <0.3 [facility] Comment on above: Performed By: #### C MPX, MG, TRIG, SIVA, LIP, IOCAL #### [address] [address] Size Tester: Ismael Lawson MD Calcium [Mass/Vol] 8.4 mg/dL Low 8.6-10.4 [facility] Comment on above: Performed By: #### C MPX, MG, TRIG, SIVA, LIP, IOCAL #### [address] [address] Size Tester: Ismael Lawson MD Chloride [Moles/Vol] 111 mmol/L High 98-107 [facility] Comment on above: Performed By: #### C MPX, MG, TRIG, SIVA, LIP, IOCAL #### [address] [address] Size Tester: Ismael Lawson MD CO2 [Moles/Vol] 20 mmol/L Normal 20-31 [facility] Comment on above: Performed By: #### C MPX, MG, TRIG, SIVA, LIP, IOCAL #### [address] [address] Size Tester: Ismael Lawson MD Glucose [Mass/Vol] 124 mg/dL High 70-99 [facility] Comment on above: Performed By: #### C MPX, MG, TRIG, SIVA, LIP, IOCAL #### [facility] [employer] [address] [place] [address] Size Tester: Ismael Lawson MD Potassium [Moles/Vol] 3.7 mmol/L Normal 3.7-5.3 [facility] Comment on above: Performed By: #### C MPX, MG, TRIG, SIVA, LIP, IOCAL #### [facility] [employer] [address] [place] [address] Size Tester: Ismael Lawson MD Protein [Mass/Vol] 5.7 g/dL Low 6.4-8.3 [facility] Comment on above: Performed By: #### C MPX, MG, TRIG, SIVA, LIP, IOCAL #### [facility] [address] [place], [place] [phone] Size Tester: Ismael Lawson MD Sodium [Moles/Vol] 141 mmol/L Normal 135-144 [facility] Comment on above: Performed By: #### C MPX, MG, TRIG, SIVA, LIP, IOCAL #### [facility] [employer] [address] [place], [place] [phone] Size Tester: Ismael Lawson MD Urea nitrogen [Mass/Vol] 18 mg/dL Normal 8-23 [facility] Comment on above: Performed By: #### C MPX, MG, TRIG, SIVA, LIP, IOCAL #### [facility] [employer] [address] [place] [address] Size Tester: Ismael Lawson MD Surgical Pathologyon 023 Surgical Pathology (NOTE) Path Number: [id number] -- Diagnosis -- GALLBLADDER, CHOLECYSTECTOMY: -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 -CHOLELITHIASIS. Mike Butler M.D Electronically Signed Out 03/12/2023 Clinical Information Operative Findings: GALLBLADDER Operation Performed: CHOLECYSTECTOMY LAPAROSCOPIC ROBOTIC cd Source of Specimen A: GALLBLADDER Gross Description VIANCA JACKSON GALLBLADDER Received in formalin is an 8.1 x 5.2 x 2.5 cm intact gallbladder with a 1.2 cm long x 0.5 cm in diameter cystic duct. The serosa is wick-pink, and the liver bed is coarse wick-brown. The wall is 0.1 cm in thickness, and the lumen contains fragmented and faceted dark brown calculi, 5.5 x 4.0 x 2.5 cm in aggregate. The mucosa is wick and faintly trabecular. Cystic duct margin and sections of gallbladder mucosa 1cs. tm Microscopic Description Microscopic examination performed. Processing Lab: [facility] [address] [place] [address] Interpretation Performed at [address] [address] SURGICAL PATHOLOGY CONSULTATION Patient Name: VIANCA JACKSON [facility] Rec: [id number] [facility] ANATOMIC PATHOLOGY [address] [facility]. [place], [place] [address] Normal [facility] Comment on above: Performed By: #### C DP, CPBILX #### [address] [address] Size Tester: Ismael Lawson MD XR CHEST PORTABLEon 03-07-20 XR CHEST PORTABLE EXAMINATION: ONE XRAY VIEW OF THE CHEST 03/07/2023 8:06 pm COMPARISON: March 07, 2023 at 8:47 a.m. HISTORY: ORDERING SYSTEM PROVIDED HISTORY: post op TECHNOLOGIST PROVIDED HISTORY: post op FINDINGS: Significant subcutaneous emphysema. Perihilar and left lower lobe infiltrates. Heart and mediastinum appear stable. No definitive pleural effusion or pneumothorax. IMPRESSION: Extensive subcutaneous emphysema not previously seen. Perihilar and left lower lobe infiltrates more pronounced compared to the previous evaluation. Interpreted by: Wilma Maya MD Signed by: Wilma Maya MD 03/07/23 Final result Normal [facility] XR CHEST PORTABLE EXAMINATION: ONE XRAY VIEW OF THE CHEST 03/07/2023 8:55 am COMPARISON: None. HISTORY: ORDERING SYSTEM PROVIDED HISTORY: preop TECHNOLOGIST PROVIDED HISTORY: preop Reason for Exam: uprt port chest FINDINGS: Overlying ECG monitor leads and gown snaps. Cardiac silhouette WNL in size for AP technique. Mediastinal structures midline with calcification aortic knob. Patchy localized opacities medial left base and possibly medial right upper lobe. Slight additional left lateral basilar atelectasis or scarring and mild cephalization of blood flow. No Kerry lines. No large pleural effusion or pneumothorax. 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 IMPRESSION: No prior study available. Bilateral patchy opacities, likely either atelectasis and/or infiltrate. RECOMMENDATION: Clinical correlation and two-view chest x-ray initially recommended; chest CT may also be indicated. Interpreted by: Quoc Correa MD Signed by: Quoc Correa MD 03/07/23 Final result Normal [facility] CBC with Diffon 03-06-2023 Abs. Basophil <0.03 Normal 0.00-0.20 [facility] Comment on above: Performed By: #### C DP, CPBILX #### [address] [address] Size Tester: Ismael Lawson MD Abs. Eosinophil <0.03 Normal 0.00-0.44 [facility] Comment on above: Performed By: #### C DP, CPBILX #### [address] [address] Size Tester: Ismael Lawson MD Abs.Imm.Granulocyte 0.14 k/uL Normal 0.00-0.30 [facility] Comment on above: Performed By: #### C DP, CPBILX #### [address] [address] Size Tester: Ismael Lawson MD Abs.Neutrophil (Seg) 8.68 k/uL High 1.50-8.10 [facility] Comment on above: Performed By: #### C DP, CPBILX #### [address] [address] Size Tester: Ismael Lawson MD Basophils/100 WBC (Bld) 0 % Normal 0-2 [facility] Comment on above: Performed By: #### C DP, CPBILX #### [address] [address] Size Tester: Ismael Lawson MD Eosinophils/100 WBC (Bld) 0 % Low 1-4 [facility] Comment on above: Performed By: #### C DP, CPBILX #### [facility] [employer] [address] [place] [address] Size Tester: Ismael Lawson MD Erythrocyte distribution width (RBC) [Ratio] 15.3 % High 11.8-14.4 [facility] Comment on above: Performed By: #### C DP, CPBILX #### [address] [address] Size Tester: Ismael Lawson MD Hematocrit (Bld) [Volume fraction] 40.2 % Normal 36.3-47.1 [facility] Comment on above: Performed By: #### C DP, CPBILX #### [place] [address] Size Tester: Ismael Lawson MD Hemoglobin (Bld) [Mass/Vol] 13.2 g/dL Normal 11.9-15.1 [facility] Comment on above: Performed By: #### C DP, CPBILX #### [place] [address] Size Tester: Ismael Lawson MD Immature granulocytes/100 WBC (Bld) 2 % High 0 [facility] Comment on above: Performed By: #### C DP, CPBILX #### [address] [address] Size Tester: Ismael Lawson MD Lymphocytes (Bld) [#/Vol] 0.52 10*3/uL Low 1.10-3.70 [facility] Comment on above: Performed By: #### C DP, CPBILX #### [facility] [employer] [address] [place] [address] Size Tester: Ismael Lawson MD Lymphocytes/100 WBC (Bld) 6 % Low 24-43 [facility] Comment on above: Performed By: #### C DP, CPBILX #### [facility] [employer] [address] [place] [address] Size Tester: Ismael Lawson MD MCH (RBC) [Entitic mass] 32.4 pg Normal 25.2-33.5 [facility] Comment on above: Performed By: #### C DP, CPBILX #### [address] [address] Size Tester: Ismael Lawson MD MCHC (RBC) [Mass/Vol] 32.8 g/dL Normal 28.4-34.8 [facility] Comment on above: Performed By: #### C DP, CPBILX #### [address] [address] Size Tester: Ismael Lawson MD MCV (RBC) [Entitic vol] 98.8 fL Normal 82.6-102.9 [facility] Comment on above: Performed By: #### C DP, CPBILX #### [address] [address] Size Tester: Ismael Lawson MD Monocytes (Bld) [#/Vol] 0.18 10*3/uL Normal 0.10-1.20 [facility] Comment on above: Performed By: #### C DP, CPBILX #### [address] [address] Size Tester: Ismael Lawson MD Monocytes/100 WBC (Bld) 2 % Low 3-12 [facility] Comment on above: Performed By: #### C DP, CPBILX #### [address] [address] Size Tester: Ismeal Lawson MD Neutrophil (Seg) 91 % High 36-65 [facility] Comment on above: Performed By: #### C DP, CPBILX #### [address] [address] Size Tester: Ismael Lawson MD NRBC Automated 0.0 per 100 WBC Normal 0.0 [facility] Comment on above: Performed By: #### C DP, CPBILX #### [address] [address] Size Tester: Ismael Lawson MD Platelet mean volume (Bld) [Entitic vol] 11.0 fL Normal 8.1-13.5 [facility] Comment on above: Performed By: #### C DP, CPBILX #### [address] [address] Size Tester: Ismael Lawson MD Platelets (Bld) [#/Vol] 281 10*3/uL Normal 138-453 [facility] Comment on above: Performed By: #### C DP, CPBILX #### [address] [address] Size Tester: Ismael Lawson MD RBC (Bld) [#/Vol] 4.07 10*6/uL Normal 3.95-5.11 [facility] Comment on above: Performed By: #### C DP, CPBILX #### [address] [address] Size Tester: Ismael Lawson MD RBC morphology finding Nom (Bld) ANISOCYTOSIS PRESENT Normal [facility] Comment on above: Performed By: #### C DP, CPBILX #### [address] [address] Size Tester: Ismael Lawson MD WBC (Bld) [#/Vol] 9.5 10*3/uL Normal 3.5-11.3 [facility] Comment on above: Performed By: #### C DP, CPBILX #### [address] [address] Size Tester: Ismael Lawson MD Comp Met+Bili/rfx MGon 03-06 Creatinine [Mass/Vol] 0.32 mg/dL Low 0.50-0.90 [facility] Comment on above: Result Comment: ICTE AGATA SPECIMEN Performed By: #### C DP, CPBILX #### [facility] [employer] [address] [place] [address] [phone] Size Tester: Ismael Lawson MD GFR/1.73 sq M.predicted among non-blacks MDRD (S/P/Bld) [Vol rate/Area] mL/min/{1.73_m2} Normal >60 [facility] Comment on above: Result Comment: These results are not intended for use in patients <18 years of age. eGFR results are calculated without a race factor using the 2020 CKD-EPI equation. Careful clinical correlation is recommended, particularly when comparing to results calculated using previous equations. The CKD-EPI equation is less accurate in patients with extremes of muscle mass, extra-renal metabolism of creatine, excessive creatine ingestion, or following therapy that affects renal tubular secretion. Performed By: #### C DP, CPBILX #### [facility] [employer] [address] [place] [address] Size Tester: Ismael Lawson MD Albumin [Mass/Vol] 2.8 g/dL Low 3.5-5.2 [facility] Comment on above: Performed By: #### C DP, CPBILX #### [facility] [employer] [address] [place] [address] Size Tester: Ismael Lawson MD Albumin/Glob Ratio 0.8 Low 1.0-2.5 [facility] Comment on above: Performed By: #### C DP, CPBILX #### [facility] [address] [place] [address] Size Tester: Ismael Lawson MD Alkaline Phos 747 U/L High 35-104 [facility] Comment on above: Performed By: #### C DP, CPBILX #### [facility] [employer] [address] [place] [address] [phone] Size Tester: Ismael Lawson MD ALT [Catalytic activity/Vol] 133 U/L High 5-33 [facility] Comment on above: Performed By: #### C DP, CPBILX #### [address] [address] Size Tester: Ismael Lawson MD Anion gap [Moles/Vol] 14 mmol/L Normal 9-17 [facility] Comment on above: Performed By: #### C DP, CPBILX #### [address] [address] Size Tester: Ismael Lawson MD AST [Catalytic activity/Vol] 82 U/L High <32 [facility] Comment on above: Performed By: #### C DP, CPBILX #### [address] [address] Size Tester: Ismael Lawson MD Bilirubin [Mass/Vol] 7.6 mg/dL High 0.3-1.2 [facility] Comment on above: Performed By: #### C DP, CPBILX #### [address] [address] Size Tester: Ismael Lawson MD Bilirubin, Indirect 1.5 mg/dL High 0.0-1.0 [facility] Comment on above: Performed By: #### C DP, CPBILX #### [facility] [employer] [address] [place] [address] Size Tester: Ismael Lawson MD Bilirubin.indirect [Mass/Vol] 6.1 mg/dL High <0.3 [facility] Comment on above: Performed By: #### C DP, CPBILX #### [facility] [employer] [address] [place] [address] Size Tester: Ismael Lawson MD Calcium [Mass/Vol] 8.9 mg/dL Normal 8.6-10.4 [facility] Comment on above: Performed By: #### C DP, CPBILX #### [facility] [employer] [address] [place] [address] Size Tester: Ismael Lawson MD Chloride [Moles/Vol] 107 mmol/L Normal 98-107 [facility] Comment on above: Performed By: #### C DP, CPBILX #### [address] [address] Size Tester: Ismael Lawson MD CO2 [Moles/Vol] 17 mmol/L Low 20-31 [facility] Comment on above: Performed By: #### C DP, CPBILX #### [address] [address] Size Tester: Ismael Lawson MD Glucose [Mass/Vol] 156 mg/dL High 70-99 [facility] Comment on above: Performed By: #### C DP, CPBILX #### [address] [address] Size Tester: Ismael Lawson MD Potassium [Moles/Vol] 4.1 mmol/L Normal 3.7-5.3 [facility] Comment on above: Performed By: #### C DP, CPBILX #### [address] [address] Size Tester: Ismael Lawson MD Protein [Mass/Vol] 6.5 g/dL Normal 6.4-8.3 [facility] Comment on above: Performed By: #### C DP, CPBILX #### [address] [address] Size Tester: Ismael Lawson MD Sodium [Moles/Vol] 138 mmol/L Normal 135-144 [facility] Comment on above: Performed By: #### C DP, CPBILX #### [facility] [employer] [address] [place] [address] Size Tester: Ismael Lawson MD Urea nitrogen [Mass/Vol] 10 mg/dL Normal 8-23 [facility] Comment on above: Performed By: #### C DP, CPBILX #### [address] [address] Size Tester: Ismael Lawson MD FLUORO FOR SURGICAL PROCEDUR ESon 03-06-2023 FLUORO FOR SURGICAL PROCEDURES Radiology exam is complete. No Radiologist dictation. Please follow up with ordering provider. Final result Normal [facility] CBC with Diffon 03-05-2023 Abs. Atypical Lymphs 0.15 k/uL Normal [facility] Comment on above: Performed By: #### C DP, CPBILX #### [address] [address] Size Tester: Ismael Lawson MD Abs. Basophil 0.00 k/uL Normal 0.0-0.2 [facility] Comment on above: Performed By: #### C DP, CPBILX #### [address] [address] Size Tester: Ismael Lawson MD Abs.Imm.Granulocyte 0.00 k/uL Normal 0.00-0.30 [facility] Comment on above: Performed By: #### C DP, CPBILX #### [address] [address] Size Tester: Ismael Lawson MD Abs.Neutrophil (Seg) 14.33 k/uL High 1.8-7.7 [facility] Comment on above: Performed By: #### C DP, CPBILX #### [address] [address] Size Tester: Ismael Lawson MD Atypical Lymphs 1 % Normal [facility] Comment on above: Performed By: #### C DP, CPBILX #### [facility] [employer] [address] [place] [address] Size Tester: Ismael Lawson MD Basophils/100 WBC (Bld) 0 % Normal 0-2 [facility] Comment on above: Performed By: #### C DP, CPBILX #### [address] [address] Size Tester: Ismael Lawson MD Eosinophils (Bld) [#/Vol] 0.00 10*3/uL Normal 0.0-0.4 [facility] Comment on above: Performed By: #### C DP, CPBILX #### [address] [address] Size Tester: Ismael Lawson MD Eosinophils/100 WBC (Bld) 0 % Low 1-4 [facility] Comment on above: Performed By: #### C DP, CPBILX #### [address] [address] Size Tester: Ismael Lawson MD Immature granulocytes/100 WBC (Bld) 0 % Normal 0 [facility] Comment on above: Performed By: #### C DP, CPBILX #### [address] [address] Size Tester: Ismael Lawson MD Lymphocytes (Bld) [#/Vol] 0.46 10*3/uL Low 1.0-4.8 [facility] Comment on above: Performed By: #### C DP, CPBILX #### [address] [address] Size Tester: Ismael Lawson MD Lymphocytes/100 WBC (Bld) 3 % Low 24-44 [facility] Comment on above: Performed By: #### C DP, CPBILX #### [address] [address] Size Tester: Ismael Lawson MD Monocytes (Bld) [#/Vol] 0.46 10*3/uL Normal 0.1-0.8 [facility] Comment on above: Performed By: #### C DP, CPBILX #### [address] [address] Size Tester: Ismael Lawson MD Monocytes/100 WBC (Bld) 3 % Normal 1-7 [facility] Comment on above: Performed By: #### C DP, CPBILX #### [address] [address] Size Tester: Ismael Lawson MD Morphology Fracisco (Bld) [Interp] ANISOCYTOSIS PRESENT Normal [facility] Comment on above: Performed By: #### C DP, CPBILX #### [address] [address] Size Tester: Ismael Lawson MD Neutrophil (Seg) 93 % High 36-66 [facility] Comment on above: Performed By: #### C DP, CPBILX #### [address] [address] Size Tester: Ismael Lawson MD Erythrocyte distribution width (RBC) [Ratio] 15.0 % High 11.8-14.4 [facility] Comment on above: Performed By: #### C DP, CPBILX #### [address] [address] Size Tester: Ismael Lawson MD Hematocrit (Bld) [Volume fraction] 37.5 % Normal 36.3-47.1 [facility] Comment on above: Performed By: #### C DP, CPBILX #### [address] [address] Size Tester: Ismael Lawson MD Hemoglobin (Bld) [Mass/Vol] 12.7 g/dL Normal 11.9-15.1 [facility] Comment on above: Performed By: #### C DP, CPBILX #### [address] [address] Size Tester: Ismael Lawson MD MCH (RBC) [Entitic mass] 32.4 pg Normal 25.2-33.5 [facility] Comment on above: Performed By: #### C DP, CPBILX #### [place] [address] Size Tester: Ismael Lawson MD MCHC (RBC) [Mass/Vol] 33.9 g/dL Normal 28.4-34.8 [facility] Comment on above: Performed By: #### C DP, CPBILX #### [address] [address] Size Tester: Ismael Lawson MD MCV (RBC) [Entitic vol] 95.7 fL Normal 82.6-102.9 [facility] Comment on above: Performed By: #### C DP, CPBILX #### [address] [address] Size Tester: Ismael Lawson MD NRBC Automated 0.0 per 100 WBC Normal 0.0 [facility] Comment on above: Performed By: #### C DP, CPBILX #### [place] [address] Size Tester: Ismael Lawson MD Platelet mean volume (Bld) [Entitic vol] 10.7 fL Normal 8.1-13.5 [facility] Comment on above: Performed By: #### C DP, CPBILX #### [address] [address] Size Tester: Ismael Lawson MD Platelets (Bld) [#/Vol] 272 10*3/uL Normal 138-453 [facility] Comment on above: Performed By: #### C DP, CPBILX #### [address] [address] Size Tester: Ismael Lawson MD RBC (Bld) [#/Vol] 3.92 10*6/uL Low 3.95-5.11 [facility] Comment on above: Performed By: #### C DP, CPBILX #### [address] [address] Size Tester: Ismael Lawson MD WBC (Bld) [#/Vol] 15.4 10*3/uL High 3.5-11.3 [facility] Comment on above: Performed By: #### C DP, CPBILX #### [address] [address] Size Tester: Ismael Lawson MD Calcium, Ionicon 03-05-2023 Calcium [Moles/Vol] 1.09 mmol/L Low 1.13-1.33 [facility] Comment on above: Performed By: #### C MPX, MG, TRIG, SIVA, LIP, IOCAL #### [place] [address] Size Tester: Ismael Lawson MD Comp Metabolic Pr/rfx MGon 0 03-05-2023 Creatinine [Mass/Vol] 0.42 mg/dL Low 0.50-0.90 [facility] Comment on above: Result Comment: ICTE AGATA SPECIMEN Performed By: #### C MPX, MG, TRIG, SIVA, LIP, IOCAL #### [address] [id number] Size Tester: Ismael Lawson MD GFR/1.73 sq M.predicted among non-blacks MDRD (S/P/Bld) [Vol rate/Area] mL/min/{1.73_m2} Normal >60 [facility] Comment on above: Result Comment: These results are not intended for use in patients <18 years of age. eGFR results are calculated without a race factor using the 2020 CKD-EPI equation. Careful clinical correlation is recommended, particularly when comparing to results calculated using previous equations. The CKD-EPI equation is less accurate in patients with extremes of muscle mass, extra-renal metabolism of creatine, excessive creatine ingestion, or following therapy that affects renal tubular secretion. Performed By: #### C MPX, MG, TRIG, SIVA, LIP, IOCAL #### [place] [address] Size Tester: Ismael Lawson MD Potassium [Moles/Vol] 3.5 mmol/L Low 3.7-5.3 [facility] Comment on above: Performed By: #### C MPX, MG, TRIG, SIVA, LIP, IOCAL #### [place] [address] Size Tester: Ismael Lawson MD Albumin [Mass/Vol] 3.0 g/dL Low 3.5-5.2 [facility] Comment on above: Performed By: #### C MPX, MG, TRIG, SIVA, LIP, IOCAL #### [place] [address] Size Tester: Ismael Lawson MD Albumin/Glob Ratio 0.9 Low 1.0-2.5 [facility] Comment on above: Performed By: #### C MPX, MG, TRIG, SIVA, LIP, IOCAL #### [facility] [employer] [address] [place] [address] Size Tester: Ismael Lawson MD Alkaline Phos 708 U/L High 35-104 [facility] Comment on above: Performed By: #### C MPX, MG, TRIG, SIVA, LIP, IOCAL #### [address] [address] Size Tester: Ismael Lawson MD ALT [Catalytic activity/Vol] 160 U/L High 5-33 [facility] Comment on above: Performed By: #### C MPX, MG, TRIG, SIVA, LIP, IOCAL #### [address] [address] Size Tester: Ismael Lawson MD Anion gap [Moles/Vol] 14 mmol/L Normal 9-17 [facility] Comment on above: Performed By: #### C MPX, MG, TRIG, SIVA, LIP, IOCAL #### [address] [address] Size Tester: Ismael Lawson MD AST [Catalytic activity/Vol] 91 U/L High <32 [facility] Comment on above: Performed By: #### C MPX, MG, TRIG, SIVA, LIP, IOCAL #### [address] [address] Size Tester: Ismael Lawson MD Bilirubin [Mass/Vol] 7.9 mg/dL High 0.3-1.2 [facility] Comment on above: Performed By: #### C MPX, MG, TRIG, SIVA, LIP, IOCAL #### [address] [address] Size Tester: Ismael Lawson MD Calcium [Mass/Vol] 8.7 mg/dL Normal 8.6-10.4 [facility] Comment on above: Performed By: #### C MPX, MG, TRIG, SIVA, LIP, IOCAL #### [address] [address] Size Tester: Ismael Lawson MD Chloride [Moles/Vol] 103 mmol/L Normal 98-107 [facility] Comment on above: Performed By: #### C MPX, MG, TRIG, SIVA, LIP, IOCAL #### [address] [address] Size Tester: Ismael Lawson MD CO2 [Moles/Vol] 18 mmol/L Low 20-31 [facility] Comment on above: Performed By: #### C MPX, MG, TRIG, SIVA, LIP, IOCAL #### [address] [address] Size Tester: Ismael Lawson MD Glucose [Mass/Vol] 132 mg/dL High 70-99 [facility] Comment on above: Performed By: #### C MPX, MG, TRIG, SIVA, LIP, IOCAL #### [address] [address] Size Tester: Ismael Lawson MD Protein [Mass/Vol] 6.2 g/dL Low 6.4-8.3 [facility] Comment on above: Performed By: #### C MPX, MG, TRIG, SIVA, LIP, IOCAL #### [address] [address] Size Tester: Ismael Lawson MD Sodium [Moles/Vol] 135 mmol/L Normal 135-144 [facility] Comment on above: Performed By: #### C MPX, MG, TRIG, SIVA, LIP, IOCAL #### [address] [address] Size Tester: Ismael Lawson MD Urea nitrogen [Mass/Vol] 14 mg/dL Normal 8-23 [facility] Comment on above: Performed By: #### C MPX, MG, TRIG, SIVA, LIP, IOCAL #### [address] [address] Size Tester: Ismael Lawson MD Lipaseon 03-05-2023 Lipase [Catalytic activity/Vol] 30 U/L Normal 13-60 [facility] Comment on above: Performed By: #### C MPX, MG, TRIG, SIVA, LIP, IOCAL #### [address] [address] Size Tester: Ismael Lawson MD MRI ABDOMEN W WO CONTRAST MR CPon 03-05-2023 MRI ABDOMEN W WO CONTRAST MRCP EXAMINATION: MRI OF THE ABDOMEN WITH AND WITHOUT CONTRAST AND MRCP 03/05/2023 2:22 pm TECHNIQUE: Multiplanar multisequence MRI of the abdomen was performed with and without the administration of intravenous contrast. After initial T2 axial and coronal images, thick slab, thin slab and 3D coronal MRCP sequences were obtained without the administration of intravenous contrast. MIP images are provided for review. COMPARISON: Outside [facility] from [facility] 03/04/2023 HISTORY: ORDERING SYSTEM PROVIDED HISTORY: Rule out cbd stones, stricture etc TECHNOLOGIST PROVIDED HISTORY: Rule out cbd stones, stricture etc Reason for Exam: Rule out cbd stones, stricture etc FINDINGS: Liver size normal. No appreciable steatosis. No focal liver lesion. Spleen, pancreas, adrenal glands show no significant abnormalities.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 [id number] Mark Rey DO [address], [place] [address] [facility] Start: 05-02-2024 COVID-19 Vaccine ( season) COVID-19 Vaccine ( season) [facility] Start: 05-02-2024 COVID-19 Vaccine ( season) COVID-19 Vaccine ( season) [facility] Start: 05-02-2024 Influenza vaccination Influenza Vacc ine [facility] Start: 03-27-2024 Adult BMI Screening Adult BMI Screen ing [facility] Start: 03-27-2024 Depression Screening Depression Scre ening [facility] Start: 03-27-2024 Tobacco Screening Tobacco Screening [facility] Start: 03-03-2024 Fall Risk Screening Fall Risk Screen ing [facility] Start: 02-19-2024 End: 02-19-2024 Patient encounter procedure 02/19/2024 3:30 PM EDT Office Visit [facility] [address] [place] [id number] [facility] Start: 02-07-2024 Medicare Annual Well ness Visit Medicare Annual Wellness Visit [facility] Start: 11-06-2023 End: 11-06-2023 ambulatory 11/06/2023 4:10 PM EST Support Visit [facility] [address] [place] [address] Mark Rey, [address] [place] [address] [facility] Start: 09-30-2023 End: 09-30-2023 Patient encounter procedure 09/30/2023 3:40 PM EST Office Visit [facility] [address] [place] [address] Mark Rey, [address] [place] [address] [facility] Start: 05-02-2023 COVID-19 Vaccine ( season) COVID-19 Vaccine ( season) [facility] Start: 05-02-2023 Influenza vaccination Influenza Vacc ine [facility] Start: 1989 Administration of varicella zoster vaccine Zoster (Shingles) Vaccine (1 of 2) [facility] Start: 1957 Adult BMI Follow Up Plan Adult BMI Follow Up Plan [facility] End: 07-12-2025 CBC panel - Blood by Automated count CBC Lab Routine Leukocytosis, unspecified type 1 Occurrences starting 07/12/2024 until 07/12/2025 [facility] Comment on above: 1 Occurrences starti ng 07/12/2024 until 07/12/2025 End: 07-12-2025 Comprehensive metabolic 2000 panel - Serum or Plasma Comprehensive metabolic panel Lab Routine Essential hypertension 1 Occurrences starting 07/12/2024 until 07/12/2025 [facility] Work Phone: Comment on above: 1 Occurrences starti ng 07/12/2024 until 07/12/2025 Immunizations Immunization Date Immunization Notes Care Provider Stacey de leon 03-12-2020 tetanus toxoid, redu ricco diphtheria toxoid, and acellular pertussis vaccine, adsorbed Kaylynn Shira [facility] 07-05-2019 Influenza, injectabl e, Madin Suzy Canine Kidney, quadrivalent with preservative Kaylynn Shira [facility] 07-05-2019 influenza virus vaccine, unspecified formulation Kaylynn Shira [facility] 06-26-2018 influenza, high dose seasonal, preservative-free Kaylynn Shira [facility] 07-18-2017 Influenza, injectabl e, Madin Suzy Canine Kidney, preservative free, quadrivalent Kaylynn Shira [facility] Payers Date Payer Category Payer Unknown 2018 Medicare ANTHEM MEDICARE AN[employer]M MEDICARE ADVANTAGE [id number] 2018-Present [phone] [address] [place] [address] [id number] 2018 Medicare HMO [employer]M MEDICARE [id number] 1959 Self-pay 1959 Unknown [id number] 1939 Unknown [id number] 1939 Unknown [id number] [id number] 1939 Unknown [id number] [id number]5 9 1939 Unknown [id number] 2.16.840.1.083508.3.579.2.128 6 1939 Unknown [id number] 2.16.840.1.472069.3.579.2.128 6 1939 Unknown [id number] 2.16.840.1.846999.3.579.2.128 6 1939 Unknown [id number] 2..840.1.706556.3.579.2.128 6 1939 Unknown [id number] 2..840.1.316020.3.579.2.128 6 1939 Unknown [id number] 2..840.1.800060.3.579.2.128 6 1939 Unknown [id number] 2.16.840.1.406629.3.579.2.128 6 1939 Unknown [id number] 2..840.1.939763.3.579.2.128 6 1939 Unknown [id number] 2..840.1.995574.3.579.2.128 6 1939 Unknown [id number] 2.16.840.1.316744.3.579.2.128 6 1939 Unknown [id number] 2.16.840.1.602835.3.579.2.128 6 1939 Unknown [id number] 2.16.840.1.235277.3.579.2.128 6 1939 Unknown [id number] 2.16.840.1.974701.3.579.2.128 6 1939 Unknown [id number] 2.16.840.1.856641.3.579.2.128 6 1939 Unknown [id number] 2.16.840.1.643355.3.579.2.196 Unknown [id number] [id number] Unknown [id number] [id number] Social History Date Type Detail Facility Start: [facility]09-[facility]22 [facility] Start: 09-09-2022 Tobacco use and exposure Smoke less tobacco non-user [facility] Start: 03-27-2023 End: 07-12-2024 Alcohol intake Lifetime non-drinker (finding) [facility] Start: 02-06-2023 End: 07-12-2024 History of Social function [facility] Start: 02-06-2023 End: 07-12-2024 Social connection and isolation panel [facility] Do you belong to any clubs or organizations such as yarsani groups, unions, fraternal or athletic groups, or school groups? Yes [facility] Are you now , , , , never or living with a partner? [facility] How often to you hav e a drink containing alcohol? Never [facility] How many standard dr inks containing alcohol do you have on a typical day? Patient does not drink [facility] How hard is it for y ou to pay for the very basics like food, housing, medical care, and heating Not very hard [facility] Do you feel stress - tense, restless, nervous, or anxious, or unable to sleep at night because your mind is troubled all the time - these days [OSQ] Only a little [facility] Start: 1940 Sex Assigned At Not on file P [facility] Has the electric, Friday, oil, or water company threatened to shut off services in your home in past 12Mo No [facility] Start: 1940 Sex Assigned At Female F [facility] Start: 04-21-2020 Sex Female (finding) [facility] Clinical Notes 09-30-2023 to 07-27-2024 Telephone Encounter - Caren Gross - 07/27/2024 3:41 PM ESTTelephone Encounter - Mark Rey DO - 07/27/2024 3:41 PM ESTTelephone Encounter - Caren Gross - 07/27/2024 3:41 PM EST Note Date & Type Note Facility 07-27-2024 Miscellaneous Notes Formattin g of this note might be different from the original. Patient called asking if you would be able to write her out a handicap placard please and thank you Okay, letter printed Will be in for cigar packer and picker documented in this encounter [facility] 07-27-2024 Telephone encount er Note Patient called asking if you would be able to write her out a handicap placard please and thank you [facility] 07-27-2024 Telephone encount er Note Okay, letter printed [facility] 07-27-2024 Telephone encount er Note Will be in for cigar packer and picker [facility] 07-12-2024 History of Presen t illness Narrative Images from the original note were not included. Subjective Patient ID: Vianca Jackson is a 83 y.o. female. Bad presents today for recheck of her back and leg pain. She is still having quite a bit of pain. Seems to be better when she is sitting on her hard stool at [facility]. Her swelling is worse. She has gained 4 lb since her last visit. She is frustrated with ongoing pain and swelling. She is taking furosemide 20 mg a day and spironolactone 25 mg a day for swelling with no improvement. She is also taking Celebrex 200 mg twice a day. She had side effects with gabapentin and she refuses opioids. She did have tizanidine in the past which she thought helped with sleep. She finished a course of physical therapy and there was mild improvement. There are no bowel or bladder symptoms. She was given home exercises to do and she does them only when she feels like it . She can not get her compression hose on now because of the swelling. The following portions of the patient's history were reviewed and updated as appropriate: allergies, current medications, past family history, past medical history, past social history, past surgical history, problem list, and medication reconciliation was completed including current medication and post discharge medication. Review of Systems Constitutional: Negative. HENT: Negative. Eyes: Negative. Respiratory: Negative. Cardiovascular: Positive for leg swelling. Gastrointestinal: Negative. Genitourinary: Negative. Musculoskeletal: Positive for arthralgias, back pain and gait problem. Skin: Negative. Hematological: Negative. Psychiatric/Behavioral: Positive for sleep disturbance. Objective Physical Exam Vitals reviewed. Constitutional: General: She is not in acute distress. HENT: Head: Normocephalic. Eyes: General: No scleral icterus. Extraocular Movements: Extraocular movements intact. Conjunctiva/sclera: Conjunctivae normal. Cardiovascular: Rate and Rhythm: Normal rate and regular rhythm. Heart sounds: Normal heart sounds. Pulmonary: Effort: Pulmonary effort is normal. No respiratory distress. Breath sounds: No wheezing, rhonchi or rales. Abdominal: General: Bowel sounds are normal. Palpations: Abdomen is soft. Musculoskeletal: Cervical back: Neck supple. Lumbar back: No swelling, edema, deformity, signs of trauma, lacerations, spasms, tenderness or bony tenderness. Positive left straight leg raise test. Negative right straight leg raise test. Back: Left hip: Tenderness and bony tenderness (Over greater trochanter and down iliotibial band) present. Decreased range of motion (Slightly decreased in internal rotation). Right lower le+ Pitting Edema present. Left lower le+ Pitting Edema present. Legs: Comments: Pain mostly in the left buttock area, piriformis muscle. Lymphadenopathy: Cervical: No cervical adenopathy. Skin: General: Skin is warm. Neurological: General: No focal deficit present. Mental Status: She is alert and oriented to person, place, and time. Cranial Nerves: Cranial nerves 2-12 are intact. Gait: Gait abnormal (Antalgic gait; ambulates with a cane). Deep Tendon Reflexes: Reflex Scores: Patellar reflexes are 2+ on the right side and 2+ on the left side. Achilles reflexes are 1+ on the right side and 2+ on the left side. Psychiatric: Attention and Perception: Attention normal. Mood and Affect: Mood and affect normal. Speech: Speech normal. Behavior: Behavior normal. Behavior is cooperative. Thought Content: Thought content normal. Cognition and Memory: Cognition normal. Judgment: Judgment normal. Assessment/Plan Vianca was seen today for follow-up. Diagnoses and all orders for this visit: Acute left-sided low back pain with left-sided sciatica - Ambulatory referral to Pain Management ([facility]); Future She has failed physical therapy. Encouraged her to home exercise program 4 times a day. Awaiting for approval on her MRI. Will refer to pain management in the meantime. Continue Celebrex 200 mg twice a day. Restart tizanidine 4 mg t.I.d.. Can try half a tablet first to see how it makes her feel. Pedal edema Check CMP. Consider referral for lymphedema treatments. She has a 40 dollar co-pay with physical therapy visit so she is hesitant to do this due to cost. Piriformis syndrome of left side - Ambulatory referral to Pain Management ([facility]); Future Refer to pain management. Obesity, morbid (CMS-HCC) She is morbidly obese. She would benefit from weight loss. Essential hypertension - Comprehensive metabolic panel; Future - POCT urinalysis dipstick only Check CMP and UA Hypokalemia Check potassium Leukocytosis, unspecified type - CBC; Future Recheck CBC Other orders - tiZANidine (ZANAFLEX) 4 mg tablet; Take 1 tablet (4 mg total) by mouth every 8 (eight) hours as needed for muscle spasms (back pain). - spironolactone (ALDACTONE) 50 mg tablet; Take 1 tablet (50 mg total) by mouth in the morning. - furosemide (LASIX) 40 mg tablet; Take 1 tablet (40 mg total) by mouth daily. documented in this encounter [facility] 07-08-2024 Miscellaneous Notes Formattin g of this note might be different from the original. Patient called she is still waiting on her MRI, I guess insurance has her stuff but wont be approved for 14 days and she said that you are supposed to call the insurance and expidite it to have it done faster. She said she's waited 3 months for this, this is no way how to treat a patient If she is upset/frustrated that she can not get her MRI then she needs to be upset with the insurance company and not me. I have not heard anything from her insurance or [facility] that I needed to call somebody do expedite this. It started 3 months ago but she had to go through physical therapy, again because her insurance company required it not me. Her anger his misdirected. I can send her to pain management in the meantime if she is having that much pain LM on VM documented in this encounter [facility] 07-08-2024 Telephone encount er Note Patient called she is still waiting on her MRI, I guess insurance has her stuff but wont be approved for 14 days and she said that you are supposed to call the insurance and expidite it to have it done faster. She said she's waited 3 months for this, this is no way how to treat a patient [facility] 07-08-2024 Telephone encount er Note If she is upset/frustrated that she can not get her MRI then she needs to be upset with the insurance company and not me. I have not heard anything from her insurance or [facility] that I needed to call somebody do expedite this. It started 3 months ago but she had to go through physical therapy, again because her insurance company required it not me. Her anger his misdirected. I can send her to pain management in the meantime if she is having that much pain [facility] 07-08-2024 Telephone encount er Note LM on VM [facility] 06-08-2024 History of Presen t illness Narrative Images from the original note were not included. Subjective Patient ID: Vianca Jackson is a 83 y.o. female. Vianca presents for recheck of her left leg pain. It starts in her buttock and goes down her left leg. She is getting numbness now. She needs a cane to help ambulate. Pain is ok sitting but worse when she stands up and when she ambulates. She started PT but has only had 2 sessions. She was given stretches to do but only able to do a couple of them. She is taking ibuprofen 600mg TID with mild benefit. She is taking tizanidine but usually just at night since it makes her groggy. She has trouble sleeping due to pain. When she does fall asleep she will wake up and is groggy and afraid she will fall. No bowel or bladder symptoms. Her appetite is down because of pain but she gained 4#. She is swelling in her feet. She got compression hose at [facility] and wants to know if she should use them. No CP or SOB The following portions of the patient's history were reviewed and updated as appropriate: allergies, current medications, past family history, past medical history, past social history, past surgical history, problem list, and medication reconciliation was completed including current medication and post discharge medication. Review of Systems Constitutional: Positive for appetite change and unexpected weight change. Respiratory: Negative. Cardiovascular: Positive for leg swelling. Negative for chest pain. Genitourinary: Negative. Musculoskeletal: Positive for back pain and gait problem. Neurological: Positive for numbness. Objective Physical Exam Vitals reviewed. Constitutional: General: She is not in acute distress. HENT: Head: Normocephalic. Cardiovascular: Rate and Rhythm: Normal rate and regular rhythm. Heart sounds: Normal heart sounds. Pulmonary: Effort: Pulmonary effort is normal. No respiratory distress. Breath sounds: No wheezing, rhonchi or rales. Musculoskeletal: Cervical back: Neck supple. Lumbar back: No swelling, edema, deformity, signs of trauma, lacerations, spasms, tenderness or bony tenderness. Negative right straight leg raise test and negative left straight leg raise test. Back: Left hip: Tenderness and bony tenderness (Over greater trochanter and down iliotibial band) present. Decreased range of motion (Slightly decreased in internal rotation). Right lower le+ Pitting Edema present. Left lower le+ Pitting Edema present. Legs: Comments: Pain mostly in the left buttock area, piriformis muscle. Lymphadenopathy: Cervical: No cervical adenopathy. Skin: General: Skin is warm. Neurological: Mental Status: She is alert and oriented to person, place, and time. Cranial Nerves: Cranial nerves 2-12 are intact. Gait: Gait abnormal (Antalgic gait; ambulates with a cane). Deep Tendon Reflexes: Reflex Scores: Patellar reflexes are 2+ on the right side and 2+ on the left side. Achilles reflexes are 1+ on the right side and 2+ on the left side. Psychiatric: Attention and Perception: Attention normal. Mood and Affect: Mood and affect normal. Speech: Speech normal. Behavior: Behavior normal. Behavior is cooperative. Thought Content: Thought content normal. Cognition and Memory: Cognition normal. Judgment: Judgment normal. Assessment/Plan Vianca was seen today for hip pain. Diagnoses and all orders for this visit: Acute left-sided low back pain with left-sided sciatica Continue therapy. May need MRI when finished if she is no better. Change ibuprofen to celecoxib 200 mg BID. Continue tizanidine Pedal edema Add furosemide 20 mg caily. Ok to use compression hose. Piriformis syndrome of left side May be playing a role in leg symptoms. Other orders - furosemide (LASIX) 20 mg tablet; Take 1 tablet (20 mg total) by mouth daily. - celecoxib (CeleBREX) 200 mg capsule; Take 1 capsule (200 mg total) by mouth in the morning and 1 capsule (200 mg total) before bedtime. documented in this encounter [facility] 06-02-2024 Miscellaneous Notes Formattin g of this note might be different from the original. Patient is starting to have swelling in her legs and ankles, she's doing her PT but is concerned since she can see how swollen they are. She wanted to know if you had any recommendations She should try compression hose. I can make a prescription for her She agrees, wants them sent to [facility]. She wants to know why they are swelling, its painful. She can hardly lay down without pain [facility] does not do them from what patient called back and said, [place] [facility] [place] print out the order for support stockings without a [id number] visit in her last visit was about her back. Looks like she will have to come in for a visit to get the support stockings are she can buy some [id number] She comes in 06/08 do you want to wait? Yes I guess she has a savings card that she can use to buy them so that's what she's doing documented in this encounter [facility] 06-02-2024 Telephone encount er Note Patient is starting to have swelling in her legs and ankles, she's doing her PT but is concerned since she can see how swollen they are. She wanted to know if you had any recommendations [facility] 06-02-2024 Telephone encount er Note She should try compression hose. I can make a prescription for her [facility] 06-02-2024 Telephone encount er Note She agrees, wants them sent to [facility]. She wants to know why they are swelling, its painful. She can hardly lay down without pain [facility] 06-02-2024 Telephone encount er Note [facility] does not do them from what patient called back and said, [place] [facility] 06-02-2024 Telephone encount er Note Not letting me print out the order for support stockings without a [id number] visit in her last visit was about her back. Looks like she will have to come in for a visit to get the support stockings are she can buy some [id number] [facility] 06-02-2024 Telephone encount er Note She comes in 06/08 do you want to wait? [facility] 06-02-2024 Telephone encount er Note Yes [facility] 06-02-2024 Telephone encount er Note I guess she has a savings card that she can use to buy them so that's what she's doing [facility] 11-06-2023 History of Presen t illness Narrative Vianca presents for dexa scan. She had one in [place] years ago and thinks it was ok. Her mother didn't break her hip. documented in this encounter [facility] 09-30-2023 History of Presen t illness Narrative Subjective Patient ID: Vianca Jackson is a 83 y.o. female. Vianca presents for CV recheck. [facility] She [facility]. It is cheaper for her. She is meeting new people. Her daughter has not contacted her since she moved out. She is taking her medication and not having any side effects. She stopped the rosuvastatin due to side effects but can't remember what it was. She is open to starting another medication if she needs it. She has a runny nose and cough intermittently. Her right ear is muffled off and on. She is taking fluticasone 1 spray a day in her nose. The following portions of the patient's history were reviewed and updated as appropriate: allergies, current medications, past family history, past medical history, past social history, past surgical history, problem list, and medication reconciliation was completed including current medication and post discharge medication. Review of Systems Constitutional: Negative. HENT: Positive for hearing loss and rhinorrhea. Eyes: Negative. Respiratory: Positive for cough. Cardiovascular: Negative. Gastrointestinal: Negative. Endocrine: Negative. Genitourinary: Negative. Musculoskeletal: Negative. Skin: Negative. Allergic/Immunologic: Negative. Neurological: Negative. Hematological: Negative. Psychiatric/Behavioral: Negative. Objective Physical Exam Constitutional: General: She is not in acute distress. Appearance: She is obese. She is not ill-appearing. HENT: Head: Normocephalic and atraumatic. Nose: Rhinorrhea present. No congestion. Eyes: General: No scleral icterus. Extraocular Movements: Extraocular movements intact. Conjunctiva/sclera: Conjunctivae normal. Cardiovascular: Rate and Rhythm: Normal rate and regular rhythm. Pulses: Normal pulses. Heart sounds: Normal heart sounds. Pulmonary: Effort: Pulmonary effort is normal. No respiratory distress. Breath sounds: Normal breath sounds. Abdominal: General: Bowel sounds are normal. There is no distension. Palpations: Abdomen is soft. There is no mass. Tenderness: There is no abdominal tenderness. There is no guarding or rebound. Hernia: No hernia is present. Musculoskeletal: Cervical back: Neck supple. Right lower leg: No edema. Left lower leg: No edema. Lymphadenopathy: Cervical: No cervical adenopathy. Skin: General: Skin is warm. Neurological: General: No focal deficit present. Mental Status: She is alert and oriented to person, place, and time. Psychiatric: Mood and Affect: Mood normal. Behavior: Behavior normal. Thought Content: Thought content normal. Judgment: Judgment normal. Assessment/Plan Vianca was seen today for hyperlipidemia and hypertension. Diagnoses and all orders for this visit: Essential hypertension - Comprehensive metabolic panel; Future - TSH; Future BP at goal. Check CMP and TSH Mixed hyperlipidemia - Lipid panel; Future Check lipids Obesity (BMI 30.0-34.9) She is obese. She would benefit from wt loss. It is contributing to high cholesterol. She has difficulty exercising. Diet encouraged. Check TSH. Recurrent acute serous otitis media of right ear - fluticasone propionate (FLONASE) 50 mcg/actuation nasal spray; Administer 2 sprays into each nostril in the morning. Increase fluticasone to 2 sprays daily. Obesity, morbid (CMS-HCC) Leukocytosis, unspecified type - CBC; Future Check CBC documented in this encounter [facility] Evaluation note Diagnosis Essential hypertension Unspecified essential hypertension documented in this encounter [facility]* Diagnosis Essential hypertension- Primary Unspecified essential hypertension Mixed hyperlipidemia Obesity (BMI 30.0-34.9) Recurrent acute serous otitis media of right ear Obesity, morbid (CMS-HCC) Morbid obesity Leukocytosis, unspecified type documented in this encounter [facility]* Diagnosis Asymptomatic menopause- Primary documented in this encounter [facility] noteNo assessment information available [facility] Work Phone: Evaluation note* Diagnosis Acute left-sided low back pain with left-sided sciatica- Primary Pedal edema Edema Piriformis syndrome of left side documented in this encounter [facility]* Diagnosis Essential hypertension Unspecified essential hypertension documented in this encounter [facility]* Diagnosis Acute left-sided low back pain with left-sided sciatica- Primary documented in this encounter [facility]* Diagnosis Lumbar radiculopathy, chronic- Primary documented in this encounter [facility]* Diagnosis Acute left-sided low back pain with left-sided sciatica- Primary Pedal edema Edema Piriformis syndrome of left side Obesity, morbid (CMS-HCC) Morbid obesity Essential hypertension Unspecified essential hypertension Hypokalemia Hypopotassemia Leukocytosis, unspecified type documented in this encounter [facility]* Diagnosis Essential hypertension Unspecified essential hypertension [facility] filed[facility] filedocument[facility] in [facility] filedocumented in this encounter [facility] filedocumented in this encounter [facility] filedocumented in this encounter [facility] filedocumented in this encounter [facility] filedocumented in this encounter [facility] on filedocumented in this encounter [facility] on filedocumented in this encounter [facility] on filedocumented in this encounter [facility] on filedocumented in this encounter [facility] filedocumented in this encounter [facility] on filedocumented in this encounter [facility] on filedocumented in this encounter [facility] Summary Purpose Family History No Family History Records FoundNo Family History Records FoundNo Family History Records FoundNo Family History Records FoundNo Family History Records FoundNo Family History Records FoundNo Family History Records FoundNo Family History Records Found Advance Directives Advance Directive Response Recorded Date/ Time Advance Directives No May 3:41pm Chief Complaint and Reason for Visit Chief Complaint Left side sciatica p ain Additional Source Comments INFORMATION SOURCE (unrecogn ized section and content) DATE CREATED AUTHOR [facility]2020 [facility] DATE CREATED AUTHOR AUTHOR'S ORGANIZ ATION 02/05/2022 [facility] DATE CREATED AUTHOR AUTHOR'S ORGANIZ ATION 03/27/2023 [facility] DATE CREATED AUTHOR AUTHOR'S ORGANIZ ATION 03/05/2024 [facility] DATE CREATED AUTHOR AUTHOR'S ORGANIZ ATION 05/28/2024 [facility] DATE CREATED AUTHOR AUTHOR'S ORGANIZ ATION 07/14/2024 [facility] DATE CREATED AUTHOR AUTHOR'S ORGANIZ ATION 07/14/2024 [facility] DATE CREATED AUTHOR AUTHOR'S ORGANIZ ATION 08/01/2024 [facility] Reason for Visit (unrecogniz ed section and content) Reason Onset Date Comments Med Refill 09/03/2023 Reason Comments Hyperlipidemia Hypertension Reason Comments Hip Pain Reason Onset Date Comments Med Refill 06/11/2024 Reason Comments Med Refill Reason Comments Follow-up Reason Onset Date Comments Med Refill 08/06/2024 Care Teams (unrecognized sec tion and content) 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 Relationship Specialty Start Date End Date Krissy Mark Benny [address] [place] [address] PCP - General Family Medicine 04/21/20 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 Relationship Specialty Start Date End Date Mark Rey DO [address] [place] [address] PCP - General Family Medicine 04/21/20 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 Relationship Specialty Start Date End Date Mark Rey DO [address] [place] [address] PCP - General Family Medicine 04/21/20 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 Relationship Specialty Start Date End Date Mark Rey DO [address] [place] [address] PCP - General Family Medicine 04/21/20 Team Status: Active Member Role Status Dates Mark Rey DO Primary Care Provider Active Team Status: Inactive Member Role Status Dates Alivia Hogue APRN Attending Provider Active Start: May 11, 2024 End: May 11, 2024 Mark Rey DO Primary Care Provider Active Start: May 11, 2024 End: May 11, 2024 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 Relationship Specialty Start Date End Date Mark Rey DO [address] [place] [address] PCP - General Family Medicine 04/21/20 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 Relationship Specialty Start Date End Date Mark Rey DO [address] [place] [address] PCP - General Family Medicine 04/21/20 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 Relationship Specialty Start Date End Date SalazarjúniorMark love DO [address] [place] [address] PCP - General Family Medicine 04/21/20 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 Relationship Specialty Start Date End Date Mark Rey DO [address] [place] [address] PCP - General Family Medicine 04/21/20 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 Relationship Specialty Start Date End Date SalazarjúniorMark love DO [address] [place] [address] PCP - General Family Medicine 04/21/20 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 Relationship Specialty Start Date End Date Mark Rey DO [address] [place] [address] PCP - General Family Medicine 04/21/20 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 Relationship Specialty Start Date End Date SalazarjúniorMark love DO [address] [place] [address] PCP - General Family Medicine 04/21/20 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 Relationship Specialty Start Date End Date SalazarjúniorMark love DO [address] [place] [address] PCP - General Family Medicine 04/21/20 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 Relationship Specialty Start Date End Date Mark Rey DO [address] [place] [address] PCP - General Family Medicine 04/21/20 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 Relationship Specialty Start Date End Date Mark Rey DO [address] [place] [address] PCP - General Family Medicine 04/21/20 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 Relationship Specialty Start Date End Date Mark Rey DO [address] [place] [address] PCP - General Family Medicine 04/21/20 Goals (unrecognized section and content) Goals may be documented in a n alternate section FOR RECORDS PERTAINING TO PATIENTS WHO ARE OR HAVE BEEN ENROLLED IN A CHEMICAL DEPENDENCY/SUBSTANCEABUSE PROGRAM, SOME INFORMATION MAY BE OMITTED. This clinical summary was aggregated from multiple sources. Caution should be exercised in using it in the provision of clinical care. This summary normalizes information from multiple sources, and as a consequence, information in this document may materially change the coding, format and clinical context of patient data. In addition, data may be omitted in some cases. CLINICAL DECISIONS SHOULD BE BASED ON THE PRIMARY CLINICAL RECORDS. [facility]. provides no warranty or guarantee of the accuracy or completeness of information in this document.
[2024-08-16 10:51] VITALS: PULSE 88; O2SAT 97
[2024-08-16 10:52] VITALS: BP 199/98
[2024-08-16 10:53] VITALS: BP 182/84; PULSE 93; O2SAT 96
[2024-08-16] MEDS: IOHEXOL 240 MG/ML - 10 ML VIAL 24 MG INJ (10:58)
[2024-08-16] MEDS: 0.9 % SODIUM CHLORIDE 10 ML SYRINGE - SALINE FLUSH INJ (10:58)
[2024-08-16] MEDS: BUPIVACAINE HCL 0.25% PF 25 MG/10 ML VIAL INJ (10:58)
--- NOTE | 2024-08-16 10:58 | P.ON_ITS ---
Date of procedure: 08/16/24 Pre-op diagnosis: Pain due to lumbar stenosis with neurogenic claudication Post-op diagnosis: same as pre-op Procedure: Procedure: Left L4-5, L5-S1 transforaminal epidural steroid injection Medications: Bupivacaine 0.25% 2cc, lidocaine 2% 1cc, depomedrol 80mg The patient was seen and examined in the preoperative holding area.? Informed consent was obtained and placed on the chart.? Patient was brought to the medical procedure unit and placed in the prone position where a timeout was completed verifying the correct patient, procedure site, position, and planned special equipment using sterile aseptic technique.? Under direct fluoroscopic visualization a 25-gauge Quincke tipped spinal needle was advanced to the designated neural foramen where contrast dye was injected to show adequate spread.? The needle was inserted at level left L4-5. There was no evidence of vascular or adverse uptake.? Epidural spread was appreciated.? The above- mentioned injectate was then placed in a 1.5 mL aliquot preceded by negative aspiration.? The needle was removed. The needle was inserted and the procedure repeated at level left L5-S1.? The surgery site was covered.? Patient was taken to the postprocedural recovery area and monitored for an appropriate length of time before found suitable for discharge in the accompaniment of a responsible adult. Anesthesia: Local Surgeon: Edwin Tolentino Pathology: none sent Condition: stable Disposition: no change
[2024-08-16] MEDS: METHYLPREDNISOLONE ACETATE 80 MG/ML VIAL INJ (10:59)
[2024-08-16] MEDS: LIDOCAINE HCL 2% 400 MG/20 ML MDV 3 ML INJ (10:59)
== END 2024-08-16 11:04 | disposition home or self-care (01) ==
LOC: SURGOUT 10:21
PROVIDERS: PCP Family Medicine; Visit Provider Anesthesiology
DX: M48.062 Spinal stenosis, lumbar region with neurogenic claudication (principal)
CPT/HCPCS: 64483; 64484; J0665; J1010; Q9966

== ENCOUNTER 2024-09-02 10:58 | Outpatient (OUT) | payer MEDICARE, SELFPAY ==
--- OUTSIDE RECORDS SUMMARY | 2024-09-02 11:02 | XMS_ITS | CCD ---
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 [facility] Comment on above: Performed By: #### C DP, CPBILX #### [address] [address] Deputy Felony Clerk: Ismael Lawson MD MCV (RBC) [Entitic vol] 93.9 fL Normal 82.6-102.9 [facility] Comment on above: Performed By: #### C DP, CPBILX #### [address] [address] Deputy Felony Clerk: Ismael Lawson MD NRBC Automated 0.0 per 100 WBC Normal 0.0 [facility] Comment on above: Performed By: #### C DP, CPBILX #### [address] [address] Deputy Felony Clerk: Ismael Lawson MD Platelet mean volume (Bld) [Entitic vol] 10.4 fL Normal 8.1-13.5 [facility] Comment on above: Performed By: #### C DP, CPBILX #### [address] [address] Deputy Felony Clerk: Ismael Lawson MD Platelets (Bld) [#/Vol] 293 10*3/uL Normal 138-453 [facility] Comment on above: Performed By: #### C DP, CPBILX #### [facility] [address] [place] [address] Deputy Felony Clerk: Ismael Lawson MD RBC (Bld) [#/Vol] 3.58 10*6/uL Low 3.95-5.11 [facility] Comment on above: Performed By: #### C DP, CPBILX #### [address] [address] Deputy Felony Clerk: Ismael Lawson MD WBC (Bld) [#/Vol] 11.5 10*3/uL High 3.5-11.3 [facility] Comment on above: Performed By: #### C DP, CPBILX #### [address] [address] Deputy Felony Clerk: Ismael Lawson MD Liver Profileon 03-11-2023 Albumin [Mass/Vol] 2.5 g/dL Low 3.5-5.2 [facility] Comment on above: Performed By: #### C DP, CPBILX #### [address] [address] Deputy Felony Clerk: Ismael Lawson MD Albumin/Glob Ratio 0.9 Low 1.0-2.5 [facility] Comment on above: Performed By: #### C DP, CPBILX #### [address] [address] Deputy Felony Clerk: Ismael Lawson MD Alkaline Phos 503 U/L High 35-104 [facility] Comment on above: Performed By: #### C DP, CPBILX #### [facility] [address] [place] [address] Deputy Felony Clerk: Ismael Lawson MD ALT [Catalytic activity/Vol] 80 U/L High 5-33 [facility] Comment on above: Performed By: #### C DP, CPBILX #### [facility] [address] [facility] [address] [place] [address] Deputy Felony Clerk: Ismael Lawson MD AST [Catalytic activity/Vol] 50 U/L High <32 [facility] Comment on above: Performed By: #### C DP, CPBILX #### [facility] [address] [place] [address] Deputy Felony Clerk: Ismael Lawson MD Bilirubin [Mass/Vol] 1.4 mg/dL High 0.3-1.2 [facility] Comment on above: Performed By: #### C DP, CPBILX #### [facility] [address] [place] [address] Deputy Felony Clerk: Ismael Lawson MD Bilirubin, Indirect 0.7 mg/dL Normal 0.0-1.0 [facility] Comment on above: Performed By: #### C DP, CPBILX #### [facility] [address] [place] [address] Deputy Felony Clerk: Ismael Lawson MD Bilirubin.indirect [Mass/Vol] 0.7 mg/dL High <0.3 [facility] Comment on above: Performed By: #### C DP, CPBILX #### [facility] [address] [place] [address] Deputy Felony Clerk: Ismael Lawson MD Protein [Mass/Vol] 5.2 g/dL Low 6.4-8.3 [facility] Comment on above: Performed By: #### C DP, CPBILX #### [facility] [address] [place] [address] Deputy Felony Clerk: Ismael Lawson MD Basic Metabolic Profon 03-10 Anion gap [Moles/Vol] 12 mmol/L Normal 9-17 [facility] Comment on above: Performed By: #### C DP, CPBILX #### [facility] [address] [place] [address] Deputy Felony Clerk: Ismael Lawson MD Calcium [Mass/Vol] 8.1 mg/dL Low 8.6-10.4 [facility] Comment on above: Performed By: #### C DP, CPBILX #### [address] [address] Deputy Felony Clerk: Ismael Lawson MD Chloride [Moles/Vol] 100 mmol/L Normal 98-107 [facility] Comment on above: Performed By: #### C DP, CPBILX #### [address] [address] Deputy Felony Clerk: Ismael Lawson MD CO2 [Moles/Vol] 22 mmol/L Normal 20-31 [facility] Comment on above: Performed By: #### C DP, CPBILX #### [address] [address] Deputy Felony Clerk: Ismael Lawson MD Creatinine [Mass/Vol] 0.3 mg/dL Low 0.50-0.90 [facility] Comment on above: Performed By: #### C DP, CPBILX #### [address] [address] Deputy Felony Clerk: Ismael Lawson MD GFR/1.73 sq M.predicted among non-blacks MDRD (S/P/Bld) [Vol rate/Area] mL/min/{1.73_m2} Normal >60 [facility] Comment on above: Result Comment: These results [...] Performed By: #### C DP, CPBILX #### [address] [address] Deputy Felony Clerk: Ismael Lawson MD Glucose [Mass/Vol] 81 mg/dL Normal 70-99 [facility] Comment on above: Performed By: #### C DP, CPBILX #### [facility] [address] [facility] [address] [place] [address] Deputy Felony Clerk: Ismael Lawson MD Potassium [Moles/Vol] 3.3 mmol/L Low 3.7-5.3 [facility] Comment on above: Performed By: #### C DP, CPBILX #### [facility] [address] [facility] [address] [place] [address] Deputy Felony Clerk: Ismael Lawson MD Sodium [Moles/Vol] 134 mmol/L Low 135-144 [facility] Comment on above: Performed By: #### C DP, CPBILX #### [address] [address] Deputy Felony Clerk: Ismael Lawson MD Urea nitrogen [Mass/Vol] 8 mg/dL Normal 8-23 [facility] Comment on above: Performed By: #### C DP, CPBILX #### [facility] [address] [facility] [address] [place] [address] Deputy Felony Clerk: Ismael Lawson MD CBC with Diffon 03-10-2023 Abs. Basophil 0.00 k/uL Normal 0.0-0.2 [facility] Comment on above: Performed By: #### C DP, CPBILX #### [facility] [address] [facility] [address] [place] [address] Deputy Felony Clerk: Ismael Lawson MD Abs.Imm.Granulocyte 0.41 k/uL High 0.00-0.30 [facility] Comment on above: Performed By: #### C DP, CPBILX #### [facility] [address] [facility] [address] [place] [address] Deputy Felony Clerk: Ismael Lawson MD Abs.Neutrophil (Seg) 11.83 k/uL High 1.8-7.7 [facility] Comment on above: Performed By: #### C DP, CPBILX #### [address] [address] Deputy Felony Clerk: Ismael Lawson MD Basophils/100 WBC (Bld) 0 % Normal 0-2 [facility] Comment on above: Performed By: #### C DP, CPBILX #### [address] [address] Deputy Felony Clerk: Ismael Lawson MD Eosinophils (Bld) [#/Vol] 0.14 10*3/uL Normal 0.0-0.4 [facility] Comment on above: Performed By: #### C DP, CPBILX #### [address] [address] Deputy Felony Clerk: Ismael Lawson MD Eosinophils/100 WBC (Bld) 1 % Normal 1-4 [facility] Comment on above: Performed By: #### C DP, CPBILX #### [address] [address] Deputy Felony Clerk: Ismael Lawson MD Immature granulocytes/100 WBC (Bld) 3 % High 0 [facility] Comment on above: Performed By: #### C DP, CPBILX #### [place] [address] Deputy Felony Clerk: Ismael Lawson MD Lymphocytes (Bld) [#/Vol] 0.54 10*3/uL Low 1.0-4.8 [facility] Comment on above: Performed By: #### C DP, CPBILX #### [address] [address] Deputy Felony Clerk: Ismael Lawson MD Lymphocytes/100 WBC (Bld) 4 % Low 24-44 [facility] Comment on above: Performed By: #### C DP, CPBILX #### [address] [address] Deputy Felony Clerk: Ismael Lawson MD Monocytes (Bld) [#/Vol] 0.68 10*3/uL Normal 0.1-0.8 [facility] Comment on above: Performed By: #### C DP, CPBILX #### [address] [address] Deputy Felony Clerk: Ismael Lawson MD Monocytes/100 WBC (Bld) 5 % Normal 1-7 [facility] Comment on above: Performed By: #### C DP, CPBILX #### [address] [address] Deputy Felony Clerk: Ismael Lawson MD Morphology Fracisco (Bld) [Interp] ANISOCYTOSIS PRESENT Normal [facility] Comment on above: Performed By: #### C DP, CPBILX #### [address] [address] Deputy Felony Clerk: Ismael Lawson MD Neutrophil (Seg) 87 % High 36-[address] [facility] Comment on above: Performed By: #### C DP, CPBILX #### [address] [address] Deputy Felony Clerk: Ismael Lawson MD Erythrocyte distribution width (RBC) [Ratio] 14.5 % High 11.8-14.4 [facility] Comment on above: Performed By: #### C DP, CPBILX #### [address] [address] Deputy Felony Clerk: Ismael Lawson MD Hematocrit (Bld) [Volume fraction] 34.0 % Low 36.3-47.1 [facility] Comment on above: Performed By: #### C DP, CPBILX #### [address] [address] Deputy Felony Clerk: Ismael Lawson MD Hemoglobin (Bld) [Mass/Vol] 11.4 g/dL Low 11.9-15.1 [facility] Comment on above: Performed By: #### C DP, CPBILX #### [address] [address] Deputy Felony Clerk: Ismael Lawson MD MCH (RBC) [Entitic mass] 32.1 pg Normal 25.2-33.5 [facility] Comment on above: Performed By: #### C DP, CPBILX #### [address] [address] Deputy Felony Clerk: Ismael Lawson MD MCHC (RBC) [Mass/Vol] 33.5 g/dL Normal 28.4-34.8 [facility] Comment on above: Performed By: #### C DP, CPBILX #### [address] [address] Deputy Felony Clerk: Ismael Lawson MD MCV (RBC) [Entitic vol] 95.8 fL Normal 82.6-102.9 [facility] Comment on above: Performed By: #### C DP, CPBILX #### [address] [address] Deputy Felony Clerk: Ismael Lawson MD NRBC Automated 0.0 per 100 WBC Normal 0.0 [facility] Comment on above: Performed By: #### C DP, CPBILX #### [address] [address] Deputy Felony Clerk: Ismael Lawson MD Platelet mean volume (Bld) [Entitic vol] 10.6 fL Normal 8.1-13.5 [facility] Comment on above: Performed By: #### C DP, CPBILX #### [address] [id number] Deputy Felony Clerk: Ismael Lawson MD Platelets (Bld) [#/Vol] 298 10*3/uL Normal 138-453 [facility] Comment on above: Performed By: #### C DP, CPBILX #### [facility] [address] [place] [address] Deputy Felony Clerk: Ismael Lawson MD RBC (Bld) [#/Vol] 3.55 10*6/uL Low 3.95-5.11 [facility] Comment on above: Performed By: #### C DP, CPBILX #### [facility] [address] [facility] [address] [place] [address] Deputy Felony Clerk: Ismael Lawson MD WBC (Bld) [#/Vol] 13.6 10*3/uL High 3.5-11.3 [facility] Comment on above: Performed By: #### C DP, CPBILX #### [facility] [address] [facility] [address] [place] [address] Deputy Felony Clerk: Ismael Lawson MD Liver Profileon 03-10-2023 Albumin [Mass/Vol] 2.5 g/dL Low 3.5-5.2 [facility] Comment on above: Performed By: #### C DP, CPBILX #### [facility] [address] [facility] [address] [place] [address] Deputy Felony Clerk: Ismael Lawson MD Albumin/Glob Ratio 0.8 Low 1.0-2.5 [facility] Comment on above: Performed By: #### C DP, CPBILX #### [facility] [address] [place] [address] Deputy Felony Clerk: Ismael Lawson MD Alkaline Phos 550 U/L High 35-104 [facility] Comment on above: Performed By: #### C DP, CPBILX #### [facility] [address] [place] [address] Deputy Felony Clerk: Ismael Lawson MD ALT [Catalytic activity/Vol] 88 U/L High 5-33 [facility] Comment on above: Performed By: #### C DP, CPBILX #### [address] [address] Deputy Felony Clerk: Ismael Lawson MD AST [Catalytic activity/Vol] 49 U/L High <32 [facility] Comment on above: Performed By: #### C DP, CPBILX #### [address] [address] Deputy Felony Clerk: Ismael Lawson MD Bilirubin [Mass/Vol] 1.9 mg/dL High 0.3-1.2 [facility] Comment on above: Performed By: #### C DP, CPBILX #### [address] [address] Deputy Felony Clerk: Ismael Lawson MD Bilirubin, Indirect 0.9 mg/dL Normal 0.0-1.0 [facility] Comment on above: Performed By: #### C DP, CPBILX #### [address] [address] Deputy Felony Clerk: Ismael Laswon MD Bilirubin.indirect [Mass/Vol] 1.0 mg/dL High <0.3 [facility] Comment on above: Performed By: #### C DP, CPBILX #### [address] [address] Deputy Felony Clerk: Ismael Lawson MD Protein [Mass/Vol] 5.6 g/dL Low 6.4-8.3 [facility] Comment on above: Performed By: #### C DP, CPBILX #### [address] [address] Deputy Felony Clerk: Ismael Lawson MD CBC with Diffon 03-09-2023 Abs. Basophil 0.07 k/uL Normal 0.00-0.20 [facility] Comment on above: Performed By: #### C DP, CP #### [address] [address] Deputy Felony Clerk: Ismael Lawson MD Abs.Imm.Granulocyte 0.29 k/uL Normal 0.00-0.30 [facility] Comment on above: Performed By: #### C DP, CP #### [place] [address] Deputy Felony Clerk: Ismael Lawson MD Abs.Neutrophil (Seg) 10.40 k/uL High 1.50-8.10 [facility] Comment on above: Performed By: #### C DP, CP #### [place] [address] Deputy Felony Clerk: Ismael Lawson MD Basophils/100 WBC (Bld) 1 % Normal 0-2 [facility] Comment on above: Performed By: #### C DP, CP #### [place] [address] Deputy Felony Clerk: Ismael Lawson MD Eosinophils (Bld) [#/Vol] 0.09 10*3/uL Normal 0.00-0.44 [facility] Comment on above: Performed By: #### C DP, CP #### [place] [address] Deputy Felony Clerk: Ismael Lawson MD Eosinophils/100 WBC (Bld) 1 % Normal 1-4 [facility] Comment on above: Performed By: #### C DP, CP #### [place] [address] Deputy Felony Clerk: Ismael Lawson MD Erythrocyte distribution width (RBC) [Ratio] 15.3 % High 11.8-14.4 [facility] Comment on above: Performed By: #### C DP, CP #### [place] [id number] Deputy Felony Clerk: Ismael Lawson MD Hematocrit (Bld) [Volume fraction] 36.4 % Normal 36.3-47.1 [facility] Comment on above: Performed By: #### C DP, CP #### [address] [address] Deputy Felony Clerk: Ismael Lawson MD Hemoglobin (Bld) [Mass/Vol] 11.9 g/dL Normal 11.9-15.1 [facility] Comment on above: Performed By: #### C DP, CP #### [address] [address] Deputy Felony Clerk: Ismael Lawson MD Immature granulocytes/100 WBC (Bld) 2 % High 0 [facility] Comment on above: Performed By: #### C DP, CP #### [address] [address] Deputy Felony Clerk: Ismael Lawson MD Lymphocytes (Bld) [#/Vol] 0.89 10*3/uL Low 1.10-3.70 [facility] Comment on above: Performed By: #### C DP, CP #### [address] [address] Deputy Felony Clerk: Ismael Lawson MD Lymphocytes/100 WBC (Bld) 7 % Low 24-43 [facility] Comment on above: Performed By: #### C DP, CP #### [address] [address] Deputy Felony Clerk: Ismael Lawson MD MCH (RBC) [Entitic mass] 32.4 pg Normal 25.2-33.5 [facility] Comment on above: Performed By: #### C DP, CP #### [address] [address] Deputy Felony Clerk: Ismael Lawson MD MCHC (RBC) [Mass/Vol] 32.7 g/dL Normal 28.4-34.8 [facility] Comment on above: Performed By: #### C DP, CP #### [place] [address] Deputy Felony Clerk: Ismael Lawson MD MCV (RBC) [Entitic vol] 99.2 fL Normal 82.6-102.9 [facility] Comment on above: Performed By: #### C DP, CP #### [place] [address] Deputy Felony Clerk: Ismael Lawson MD Monocytes (Bld) [#/Vol] 0.57 10*3/uL Normal 0.10-1.20 [facility] Comment on above: Performed By: #### C DP, CP #### [place] [address] Deputy Felony Clerk: Ismael Lawson MD Monocytes/100 WBC (Bld) 5 % Normal 3-12 [facility] Comment on above: Performed By: #### C DP, CP #### [place] [address] Deputy Felony Clerk: Ismael Lawson MD Neutrophil (Seg) 84 % High 36-[address] [facility] Comment on above: Performed By: #### C DP, CP #### [place] [address] Deputy Felony Clerk: Ismael Lawson MD NRBC Automated 0.0 per 100 WBC Normal 0.0 [facility] Comment on above: Performed By: #### C DP, CP #### [place] [address] Deputy Felony Clerk: Ismael Lawson MD Platelet mean volume (Bld) [Entitic vol] 10.4 fL Normal 8.1-13.5 [facility] Comment on above: Performed By: #### C DP, CP #### [address] [address] Deputy Felony Clerk: Ismael Lawson MD Platelets (Bld) [#/Vol] 287 10*3/uL Normal 138-453 [facility] Comment on above: Performed By: #### C DP, CP #### [address] [address] Deputy Felony Clerk: Ismael Lawson MD RBC (Bld) [#/Vol] 3.67 10*6/uL Low 3.95-5.11 [facility] Comment on above: Performed By: #### C DP, CP #### [address] [address] Deputy Felony Clerk: Ismael Lawson MD RBC morphology finding Nom (Bld) ANISOCYTOSIS PRESENT Normal [facility] Comment on above: Performed By: #### C DP, CP #### [address] [address] Deputy Felony Clerk: Ismael Lawson MD WBC (Bld) [#/Vol] 12.3 10*3/uL High 3.5-11.3 [facility] Comment on above: Performed By: #### C DP, CP #### [address] [address] Deputy Felony Clerk: Ismael Lawson MD Comp Metabolic Profon 2022 Creatinine [Mass/Vol] 0.38 mg/dL Low 0.50-0.90 [facility] Comment on above: Result Comment: ICTE AGATA SPECIMEN Performed By: #### C DP, CP #### [address] [address] Deputy Felony Clerk: Ismael Lawson MD GFR/1.73 sq M.predicted among non-blacks MDRD (S/P/Bld) [Vol rate/Area] mL/min/{1.73_m2} Normal >60 [facility] Comment on above: Result Comment: These results [...] Performed By: #### C DP, CP #### [address] [address] Deputy Felony Clerk: Ismael Lawson MD Albumin [Mass/Vol] 2.5 g/dL Low 3.5-5.2 [facility] Comment on above: Performed By: #### C DP, CP #### [address] [address] Deputy Felony Clerk: Ismael Lawson MD Albumin/Glob Ratio 0.8 Low 1.0-2.5 [facility] Comment on above: Performed By: #### C DP, CP #### [address] [address] Deputy Felony Clerk: Ismael Lawson MD Alkaline Phos 555 U/L High 35-104 [facility] Comment on above: Performed By: #### C DP, CP #### [address] [address] Deputy Felony Clerk: Ismael Lawson MD ALT [Catalytic activity/Vol] 122 U/L High 5-33 [facility] Comment on above: Performed By: #### C DP, CP #### [address] [address] Deputy Felony Clerk: Ismael Lawson MD Anion gap [Moles/Vol] 9 mmol/L Normal 9-17 [facility] Comment on above: Performed By: #### C DP, CP #### [address] [address] Deputy Felony Clerk: Ismael Lawson MD AST [Catalytic activity/Vol] 71 U/L High <32 [facility] Comment on above: Performed By: #### C DP, CP #### [facility] [address] [place] [address] Deputy Felony Clerk: Ismael Lawson MD Bilirubin [Mass/Vol] 2.6 mg/dL High 0.3-1.2 [facility] Comment on above: Performed By: #### C DP, CP #### [address] [address] Deputy Felony Clerk: Ismael Lawson MD Calcium [Mass/Vol] 8.3 mg/dL Low 8.6-10.4 [facility] Comment on above: Performed By: #### C DP, CP #### [address] [address] Deputy Felony Clerk: Ismael Lawson MD Chloride [Moles/Vol] 102 mmol/L Normal 98-107 [facility] Comment on above: Performed By: #### C DP, CP #### [address] [address] Deputy Felony Clerk: Ismael Lawson MD CO2 [Moles/Vol] 23 mmol/L Normal 20-31 [facility] Comment on above: Performed By: #### C DP, CP #### [address] [address] Deputy Felony Clerk: Ismael Lawson MD Glucose [Mass/Vol] 104 mg/dL High 70-99 [facility] Comment on above: Performed By: #### C DP, CP #### [facility] [address] [place] [address] Deputy Felony Clerk: Ismael Lawson MD Potassium [Moles/Vol] 3.3 mmol/L Low 3.7-5.3 [facility] Comment on above: Performed By: #### C DP, CP #### [facility] [place] [address] Deputy Felony Clerk: Ismael Lawson MD Protein [Mass/Vol] 5.8 g/dL Low 6.4-8.3 [facility] Comment on above: Performed By: #### C DP, CP #### [facility] [place] [address] Deputy Felony Clerk: Ismael Lawson MD Sodium [Moles/Vol] 134 mmol/L Low 135-144 [facility] Comment on above: Performed By: #### C DP, CP #### [facility] [address] [place] [address] Deputy Felony Clerk: Ismael Lawson MD Urea nitrogen [Mass/Vol] 9 mg/dL Normal 8-23 [facility] Comment on above: Performed By: #### C DP, CP #### [facility] [address] [place] [address] Deputy Felony Clerk: Ismael Lawson MD XR ABDOMEN (KUB) (SINGLE [...] Bhavik Londono DO 03/09/23 Final result Normal [facility] CBCon 03-08-2023 Erythrocyte distribution width (RBC) [Ratio] 15.2 % High 11.8-14.4 [facility] Comment on above: Performed By: #### C MPX, MG, TRIG, SIVA, LIP, IOCAL #### [address] [address] Deputy Felony Clerk: Ismael Lawson MD Hematocrit (Bld) [Volume fraction] 36.0 % Low 36.3-47.1 [facility] Comment on above: Performed By: #### C MPX, MG, TRIG, SIVA, LIP, IOCAL #### [address] [address] Deputy Felony Clerk: Ismael Lawson MD Hemoglobin (Bld) [Mass/Vol] 12.0 g/dL Normal 11.9-15.1 [facility] Comment on above: Performed By: #### C MPX, MG, TRIG, SIVA, LIP, IOCAL #### [address] [address] Deputy Felony Clerk: Ismael Lawson MD MCH (RBC) [Entitic mass] 32.6 pg Normal 25.2-33.5 [facility] Comment on above: Performed By: #### C MPX, MG, TRIG, SIVA, LIP, IOCAL #### [address] [address] Deputy Felony Clerk: Ismael Lawson MD MCHC (RBC) [Mass/Vol] 33.3 g/dL Normal 28.4-34.8 [facility] Comment on above: Performed By: #### C MPX, MG, TRIG, SIVA, LIP, IOCAL #### [address] [address] Deputy Felony Clerk: Ismael Lawson MD MCV (RBC) [Entitic vol] 97.8 fL Normal 82.6-102.9 [facility] Comment on above: Performed By: #### C MPX, MG, TRIG, SIVA, LIP, IOCAL #### [address] [address] Deputy Felony Clerk: Ismael Lawson MD NRBC Automated 0.0 per 100 WBC Normal 0.0 [facility] Comment on above: Performed By: #### C MPX, MG, TRIG, SIVA, LIP, IOCAL #### [address] [address] Deputy Felony Clerk: Ismael Lawson MD Platelet mean volume (Bld) [Entitic vol] 11.0 fL Normal 8.1-13.5 [facility] Comment on above: Performed By: #### C MPX, MG, TRIG, SIVA, LIP, IOCAL #### [address] [address] Deputy Felony Clerk: Ismael Lawson MD Platelets (Bld) [#/Vol] 327 10*3/uL Normal 138-453 [facility] Comment on above: Performed By: #### C MPX, MG, TRIG, SIVA, LIP, IOCAL #### [address] [address] Deputy Felony Clerk: Ismael Lawson MD RBC (Bld) [#/Vol] 3.68 10*6/uL Low 3.95-5.11 [facility] Comment on above: Performed By: #### C MPX, MG, TRIG, SIVA, LIP, IOCAL #### [address] [address] Deputy Felony Clerk: Ismael Lawson MD WBC (Bld) [#/Vol] 12.0 10*3/uL High 3.5-11.3 [facility] Comment on above: Performed By: #### C MPX, MG, TRIG, SIVA, LIP, IOCAL #### [address] [address] Deputy Felony Clerk: Ismael Lawson MD Calcium, Ionicon 07-08-2023 Calcium [Moles/Vol] 1.12 mmol/L Low 1.13-1.33 [facility] Comment on above: Performed By: #### C MPX, MG, TRIG, SIVA, LIP, IOCAL #### [facility] [address] [place] [address] [phone] Deputy Felony Clerk: Ismael Lawson MD Comp Metab w/Bili Pron 03-08 Creatinine [Mass/Vol] 0.50 mg/dL Normal 0.50-0.90 [facility] Comment on above: Result Comment: ICTE AGATA SPECIMEN Performed By: #### C MPX, MG, TRIG, SIVA, LIP, IOCAL #### [facility] [address] [place] [address] [phone] Deputy Felony Clerk: Ismael Lawson MD GFR/1.73 sq M.predicted among non-blacks MDRD (S/P/Bld) [Vol rate/Area] mL/min/{1.73_m2} Normal >60 [facility] Comment on above: Result Comment: These results [...] MPX, MG, TRIG, SIVA, LIP, IOCAL #### [facility] [address] [place] [address] [phone] Deputy Felony Clerk: Ismael Lawson MD Albumin [Mass/Vol] 2.8 g/dL Low 3.5-5.2 [facility] Comment on above: Performed By: #### C MPX, MG, TRIG, SIVA, LIP, IOCAL #### [facility] [address] [place] [address] [phone] Deputy Felony Clerk: Ismael Lawson MD Albumin/Glob Ratio 0.9 Low 1.0-2.5 [facility] Comment on above: Performed By: #### C MPX, MG, TRIG, SIVA, LIP, IOCAL #### [facility] [address] [place] [address] Deputy Felony Clerk: Ismael Lawson MD Alkaline Phos 623 U/L High 35-104 [facility] Comment on above: Performed By: #### C MPX, MG, TRIG, SIVA, LIP, IOCAL #### [facility] [address] [place] [address] Deputy Felony Clerk: Ismael Lawson MD ALT [Catalytic activity/Vol] 153 U/L High 5-33 [facility] Comment on above: Performed By: #### C MPX, MG, TRIG, SIVA, LIP, IOCAL #### [address] [address] Deputy Felony Clerk: Ismael Laswon MD Anion gap [Moles/Vol] 11 mmol/L Normal 9-17 [facility] Comment on above: Performed By: #### C MPX, MG, TRIG, SIVA, LIP, IOCAL #### [address] [address] Deputy Felony Clerk: Ismael Lawson MD AST [Catalytic activity/Vol] 121 U/L High <32 [facility] Comment on above: Performed By: #### C MPX, MG, TRIG, SIVA, LIP, IOCAL #### [facility] [address] [place] [address] Deputy Felony Clerk: Ismael Lawson MD Bilirubin [Mass/Vol] 3.0 mg/dL High 0.3-1.2 [facility] Comment on above: Performed By: #### C MPX, MG, TRIG, SIVA, LIP, IOCAL #### [facility] [address] [place] [address] Deputy Felony Clerk: Ismael Lawson MD Bilirubin, Indirect 1.6 mg/dL High 0.0-1.0 [facility] Comment on above: Performed By: #### C MPX, MG, TRIG, SIVA, LIP, IOCAL #### [address] [address] Deputy Felony Clerk: Ismael Lawson MD Bilirubin.indirect [Mass/Vol] 1.4 mg/dL High <0.3 [facility] Comment on above: Performed By: #### C MPX, MG, TRIG, SIVA, LIP, IOCAL #### [address] [address] Deputy Felony Clerk: Ismael Lawson MD Calcium [Mass/Vol] 8.4 mg/dL Low 8.6-10.4 [facility] Comment on above: Performed By: #### C MPX, MG, TRIG, SIVA, LIP, IOCAL #### [address] [address] Deputy Felony Clerk: Ismael Lawson MD Chloride [Moles/Vol] 104 mmol/L Normal 98-107 [facility] Comment on above: Performed By: #### C MPX, MG, TRIG, SIVA, LIP, IOCAL #### [address] [address] Deputy Felony Clerk: Ismael Lawson MD CO2 [Moles/Vol] 22 mmol/L Normal 20-31 [facility] Comment on above: Performed By: #### C MPX, MG, TRIG, SIVA, LIP, IOCAL #### [address] [address] Deputy Felony Clerk: Ismael Lawson MD Glucose [Mass/Vol] 146 mg/dL High 70-99 [facility] Comment on above: Performed By: #### C MPX, MG, TRIG, SIVA, LIP, IOCAL #### [facility] [address] [place] [address] Deputy Felony Clerk: Ismael Lawson MD Potassium [Moles/Vol] 4.1 mmol/L Normal 3.7-5.3 [facility] Comment on above: Performed By: #### C MPX, MG, TRIG, SIVA, LIP, IOCAL #### [address] [address] Deputy Felony Clerk: Ismael Lawson MD Protein [Mass/Vol] 5.9 g/dL Low 6.4-8.3 [facility] Comment on above: Performed By: #### C MPX, MG, TRIG, SIVA, LIP, IOCAL #### [place] [address] Deputy Felony Clerk: Ismael Lawson MD Sodium [Moles/Vol] 137 mmol/L Normal 135-144 [facility] Comment on above: Performed By: #### C MPX, MG, TRIG, SIVA, LIP, IOCAL #### [place] [address] Deputy Felony Clerk: Ismael Lawson MD Urea nitrogen [Mass/Vol] 13 mg/dL Normal 8-23 [facility] Comment on above: Performed By: #### C MPX, MG, TRIG, SIVA, LIP, IOCAL #### [place] [address] Deputy Felony Clerk: Ismael Lawson MD CBC with Diffon 03-07-2023 Abs. Basophil 0.03 k/uL Normal 0.00-0.20 [facility] Comment on above: Performed By: #### C MPX, MG, TRIG, SIVA, LIP, IOCAL #### [facility] [address] [place] [address] Deputy Felony Clerk: Ismael Lawson MD Abs.Imm.Granulocyte 0.12 k/uL Normal 0.00-0.30 [facility] Comment on above: Performed By: #### C MPX, MG, TRIG, SIVA, LIP, IOCAL #### [address] [address] Deputy Felony Clerk: Ismael Lawson MD Abs.Neutrophil (Seg) 8.46 k/uL High 1.50-8.10 [facility] Comment on above: Performed By: #### C MPX, MG, TRIG, SIVA, LIP, IOCAL #### [address] [address] Deputy Felony Clerk: Ismael Lawson MD Basophils/100 WBC (Bld) 0 % Normal 0-2 [facility] Comment on above: Performed By: #### C MPX, MG, TRIG, SIVA, LIP, IOCAL #### [place] [address] Deputy Felony Clerk: Ismael Lawson MD Eosinophils (Bld) [#/Vol] 0.03 10*3/uL Normal 0.00-0.44 [facility] Comment on above: Performed By: #### C MPX, MG, TRIG, SIVA, LIP, IOCAL #### [place] [address] Deputy Felony Clerk: Ismael Lawson MD Eosinophils/100 WBC (Bld) 0 % Low 1-4 [facility] Comment on above: Performed By: #### C MPX, MG, TRIG, SIVA, LIP, IOCAL #### [place] [address] Deputy Felony Clerk: Ismael Lawson MD Erythrocyte distribution width (RBC) [Ratio] 15.1 % High 11.8-14.4 [facility] Comment on above: Performed By: #### C MPX, MG, TRIG, SIVA, LIP, IOCAL #### [address] [address] Deputy Felony Clerk: Ismael Lawson MD Hematocrit (Bld) [Volume fraction] 33.3 % Low 36.3-47.1 [facility] Comment on above: Performed By: #### C MPX, MG, TRIG, SIVA, LIP, IOCAL #### [facility] [address] [place] [address] Deputy Felony Clerk: Ismael Lawson MD Hemoglobin (Bld) [Mass/Vol] 11.4 g/dL Low 11.9-15.1 [facility] Comment on above: Performed By: #### C MPX, MG, TRIG, SIVA, LIP, IOCAL #### [facility] [address] [place] [address] Deputy Felony Clerk: Ismael Lawson MD Immature granulocytes/100 WBC (Bld) 1 % High 0 [facility] Comment on above: Performed By: #### C MPX, MG, TRIG, SIVA, LIP, IOCAL #### [facility] [address] [place] [address] Deputy Felony Clerk: Ismael Lawson MD Lymphocytes (Bld) [#/Vol] 0.86 10*3/uL Low 1.10-3.70 [facility] Comment on above: Performed By: #### C MPX, MG, TRIG, SIVA, LIP, IOCAL #### [facility] [address] [place] [address] Deputy Felony Clerk: Ismael Lawson MD Lymphocytes/100 WBC (Bld) 8 % Low 24-43 [facility] Comment on above: Performed By: #### C MPX, MG, TRIG, SIVA, LIP, IOCAL #### [facility] [address] [place] [address] Deputy Felony Clerk: Ismael Lawson MD MCH (RBC) [Entitic mass] 33.2 pg Normal 25.2-33.5 [facility] Comment on above: Performed By: #### C MPX, MG, TRIG, SIVA, LIP, IOCAL #### [facility] [address] [place] [address] Deputy Felony Clerk: Ismael Lawson MD MCHC (RBC) [Mass/Vol] 34.2 g/dL Normal 28.4-34.8 [facility] Comment on above: Performed By: #### C MPX, MG, TRIG, SIVA, LIP, IOCAL #### [address] [address] Deputy Felony Clerk: Ismael Lawson MD MCV (RBC) [Entitic vol] 97.1 fL Normal 82.6-102.9 [facility] Comment on above: Performed By: #### C MPX, MG, TRIG, SIVA, LIP, IOCAL #### [place] [address] Deputy Felony Clerk: Ismael Lawson MD Monocytes (Bld) [#/Vol] 0.71 10*3/uL Normal 0.10-1.20 [facility] Comment on above: Performed By: #### C MPX, MG, TRIG, SIVA, LIP, IOCAL #### [place] [address] Deputy Felony Clerk: Ismael Lawson MD Monocytes/100 WBC (Bld) 7 % Normal 3-12 [facility] Comment on above: Performed By: #### C MPX, MG, TRIG, SIVA, LIP, IOCAL #### [place] [address] Deputy Felony Clerk: Ismael Lawson MD Neutrophil (Seg) 84 % High 36-[address] [facility] Comment on above: Performed By: #### C MPX, MG, TRIG, SIVA, LIP, IOCAL #### [address] [address] Deputy Felony Clerk: Ismael Lawson MD NRBC Automated 0.0 per 100 WBC Normal 0.0 [facility] Comment on above: Performed By: #### C MPX, MG, TRIG, SIVA, LIP, IOCAL #### [address] [address] Deputy Felony Clerk: Ismael Lawson MD Platelet mean volume (Bld) [Entitic vol] 11.4 fL Normal 8.1-13.5 [facility] Comment on above: Performed By: #### C MPX, MG, TRIG, SIVA, LIP, IOCAL #### [address] [address] Deputy Felony Clerk: Ismael Lawson MD Platelets (Bld) [#/Vol] 260 10*3/uL Normal 138-453 [facility] Comment on above: Performed By: #### C MPX, MG, TRIG, SIVA, LIP, IOCAL #### [address] [address] Deputy Felony Clerk: Ismael Lawson MD RBC (Bld) [#/Vol] 3.43 10*6/uL Low 3.95-5.11 [facility] Comment on above: Performed By: #### C MPX, MG, TRIG, SIVA, LIP, IOCAL #### [address] [address] Deputy Felony Clerk: Ismael Lawson MD RBC morphology finding Nom (Bld) ANISOCYTOSIS PRESENT Normal [facility] Comment on above: Performed By: #### C MPX, MG, TRIG, SIVA, LIP, IOCAL #### [address] [address] Deputy Felony Clerk: Ismael Lawson MD WBC (Bld) [#/Vol] 10.2 10*3/uL Normal 3.5-11.3 [facility] Comment on above: Performed By: #### C MPX, MG, TRIG, SIVA, LIP, IOCAL #### [address] [address] Deputy Felony Clerk: Ismael Lawson MD Comp Met+Bili/rfx MGon 03-07 Creatinine [Mass/Vol] 0.49 mg/dL Low 0.50-0.90 [facility] Comment on above: Result Comment: ICTE AGATA SPECIMEN Performed By: #### C MPX, MG, TRIG, SIVA, LIP, IOCAL #### [address] [phone] Deputy Felony Clerk: Ismael Lawson MD GFR/1.73 sq M.predicted among non-blacks MDRD (S/P/Bld) [Vol rate/Area] mL/min/{1.73_m2} Normal >60 [facility] Comment on above: Result Comment: These results [...] MPX, MG, TRIG, SIVA, LIP, IOCAL #### [address] [address] Deputy Felony Clerk: Ismael Lawson MD Albumin [Mass/Vol] 2.6 g/dL Low 3.5-5.2 [facility] Comment on above: Performed By: #### C MPX, MG, TRIG, SIVA, LIP, IOCAL #### [facility] [address] [place] [address] Deputy Felony Clerk: Ismael Lawson MD Albumin/Glob Ratio 0.8 Low 1.0-2.5 [facility] Comment on above: Performed By: #### C MPX, MG, TRIG, SIVA, LIP, IOCAL #### [facility] [address] [place] [address] [phone] Deputy Felony Clerk: Ismael Lawson MD Alkaline Phos 652 U/L High 35-104 [facility] Comment on above: Performed By: #### C MPX, MG, TRIG, SIVA, LIP, IOCAL #### [address] [address] Deputy Felony Clerk: Ismael Lawson MD ALT [Catalytic activity/Vol] 100 U/L High 5-33 [facility] Comment on above: Performed By: #### C MPX, MG, TRIG, SIVA, LIP, IOCAL #### [address] [address] Deputy Felony Clerk: Ismael Lawson MD Anion gap [Moles/Vol] 10 mmol/L Normal 9-17 [facility] Comment on above: Performed By: #### C MPX, MG, TRIG, SIVA, LIP, IOCAL #### [address] [address] Deputy Felony Clerk: Ismael Lawson MD AST [Catalytic activity/Vol] 55 U/L High <32 [facility] Comment on above: Performed By: #### C MPX, MG, TRIG, SIVA, LIP, IOCAL #### [address] [address] Deputy Felony Clerk: Ismael Lawson MD Bilirubin [Mass/Vol] 3.6 mg/dL High 0.3-1.2 [facility] Comment on above: Performed By: #### C MPX, MG, TRIG, SIVA, LIP, IOCAL #### [address] [address] Deputy Felony Clerk: Ismael Lawson MD Bilirubin, Indirect 1.5 mg/dL High 0.0-1.0 [facility] Comment on above: Performed By: #### C MPX, MG, TRIG, SIVA, LIP, IOCAL #### [facility] [address] [place] [address] Deputy Felony Clerk: Ismael Lawson MD Bilirubin.indirect [Mass/Vol] 2.1 mg/dL High <0.3 [facility] Comment on above: Performed By: #### C MPX, MG, TRIG, SIVA, LIP, IOCAL #### [address] [address] Deputy Felony Clerk: Ismael Lawson MD Calcium [Mass/Vol] 8.4 mg/dL Low 8.6-10.4 [facility] Comment on above: Performed By: #### C MPX, MG, TRIG, SIVA, LIP, IOCAL #### [address] [address] Deputy Felony Clerk: Ismael Lawson MD Chloride [Moles/Vol] 111 mmol/L High 98-107 [facility] Comment on above: Performed By: #### C MPX, MG, TRIG, SIVA, LIP, IOCAL #### [address] [address] Deputy Felony Clerk: Ismael Lawson MD CO2 [Moles/Vol] 20 mmol/L Normal 20-31 [facility] Comment on above: Performed By: #### C MPX, MG, TRIG, SIVA, LIP, IOCAL #### [address] [address] Deputy Felony Clerk: Ismael Lawson MD Glucose [Mass/Vol] 124 mg/dL High 70-99 [facility] Comment on above: Performed By: #### C MPX, MG, TRIG, SIVA, LIP, IOCAL #### [address] [address] Deputy Felony Clerk: Ismael Lawson MD Potassium [Moles/Vol] 3.7 mmol/L Normal 3.7-5.3 [facility] Comment on above: Performed By: #### C MPX, MG, TRIG, SIVA, LIP, IOCAL #### [facility] [address] [place] [address] Deputy Felony Clerk: Ismael Lawson MD Protein [Mass/Vol] 5.7 g/dL Low 6.4-8.3 [facility] Comment on above: Performed By: #### C MPX, MG, TRIG, SIVA, LIP, IOCAL #### [facility] [address] [place], [place] 3000708 Deputy Felony Clerk: Ismael Lawson MD Sodium [Moles/Vol] 141 mmol/L Normal 135-144 [facility] Comment on above: Performed By: #### C MPX, MG, TRIG, SIVA, LIP, IOCAL #### [facility] [address] [place], [place] [phone] Deputy Felony Clerk: Ismael Lawson MD Urea nitrogen [Mass/Vol] 18 mg/dL Normal 8-23 [facility] Comment on above: Performed By: #### C MPX, MG, TRIG, SIVA, LIP, IOCAL #### [facility] [address] [place] [address] Deputy Felony Clerk: Ismael Lawson MD Surgical Pathologyon 023 Surgical Pathology (NOTE) Path Number: [id number] -- Diagnosis -- GALLBLADDER, CHOLECYSTECTOMY: -ACUTE AND [...] Microscopic Description Microscopic examination performed. Processing Lab: [address] [place] [address] Interpretation Performed at [address] [address] SURGICAL PATHOLOGY CONSULTATION Patient Name: VIANCA JACKSON [facility] Rec: [id number] [facility] ANATOMIC PATHOLOGY [address] [facility]. [place], [place] [address] Normal [facility] Comment on above: Performed By: #### C DP, CPBILX #### [facility] [address] [place] [address] [phone] Deputy Felony Clerk: Ismael Lawson MD XR CHEST PORTABLEon 03-07-20 [...] Wilma Maya MD 03/07/23 Final result Normal [facility] XR CHEST PORTABLE EXAMINATION: ONE XRAY VIEW [...] Quoc Correa MD 03/07/23 Final result Normal [facility] CBC with Diffon 03-06-2023 Abs. Basophil <0.03 Normal 0.00-0.20 [facility] Comment on above: Performed By: #### C DP, CPBILX #### [address] [address] Deputy Felony Clerk: Ismael Lawson MD Abs. Eosinophil <0.03 Normal 0.00-0.44 [facility] Comment on above: Performed By: #### C DP, CPBILX #### [address] [address] Deputy Felony Clerk: Ismael Lawson MD Abs.Imm.Granulocyte 0.14 k/uL Normal 0.00-0.30 [facility] Comment on above: Performed By: #### C DP, CPBILX #### [address] [address] Deputy Felony Clerk: Ismael Lawson MD Abs.Neutrophil (Seg) 8.68 k/uL High 1.50-8.10 [facility] Comment on above: Performed By: #### C DP, CPBILX #### [address] [address] Deputy Felony Clerk: Ismael Lawson MD Basophils/100 WBC (Bld) 0 % Normal 0-2 [facility] Comment on above: Performed By: #### C DP, CPBILX #### [address] [address] Deputy Felony Clerk: Ismael Lawson MD Eosinophils/100 WBC (Bld) 0 % Low 1-4 [facility] Comment on above: Performed By: #### C DP, CPBILX #### [address] [address] Deputy Felony Clerk: Ismael Lawson MD Erythrocyte distribution width (RBC) [Ratio] 15.3 % High 11.8-14.4 [facility] Comment on above: Performed By: #### C DP, CPBILX #### [facility] [address] [place] [address] Deputy Felony Clerk: Ismael Lawson MD Hematocrit (Bld) [Volume fraction] 40.2 % Normal 36.3-47.1 [facility] Comment on above: Performed By: #### C DP, CPBILX #### [address] [address] Deputy Felony Clerk: Ismael Lawson MD Hemoglobin (Bld) [Mass/Vol] 13.2 g/dL Normal 11.9-15.1 [facility] Comment on above: Performed By: #### C DP, CPBILX #### [address] [address] Deputy Felony Clerk: Ismael Lawson MD Immature granulocytes/100 WBC (Bld) 2 % High 0 [facility] Comment on above: Performed By: #### C DP, CPBILX #### [address] [address] Deputy Felony Clerk: Ismael Lawson MD Lymphocytes (Bld) [#/Vol] 0.52 10*3/uL Low 1.10-3.70 [facility] Comment on above: Performed By: #### C DP, CPBILX #### [address] [id number] Deputy Felony Clerk: Ismael Lawson MD Lymphocytes/100 WBC (Bld) 6 % Low 24-43 [facility] Comment on above: Performed By: #### C DP, CPBILX #### [facility] [address] [place] [address] Deputy Felony Clerk: Ismael Lawson MD MCH (RBC) [Entitic mass] 32.4 pg Normal 25.2-33.5 [facility] Comment on above: Performed By: #### C DP, CPBILX #### [address] [address] Deputy Felony Clerk: Ismael Lawson MD MCHC (RBC) [Mass/Vol] 32.8 g/dL Normal 28.4-34.8 [facility] Comment on above: Performed By: #### C DP, CPBILX #### [address] [address] Deputy Felony Clerk: Ismael Lawson MD MCV (RBC) [Entitic vol] 98.8 fL Normal 82.6-102.9 [facility] Comment on above: Performed By: #### C DP, CPBILX #### [address] [address] Deputy Felony Clerk: Ismael Lawson MD Monocytes (Bld) [#/Vol] 0.18 10*3/uL Normal 0.10-1.20 [facility] Comment on above: Performed By: #### C DP, CPBILX #### [address] [address] Deputy Felony Clerk: Ismael Lawson MD Monocytes/100 WBC (Bld) 2 % Low 3-12 [facility] Comment on above: Performed By: #### C DP, CPBILX #### [address] [address] Deputy Felony Clerk: Ismael Lawson MD Neutrophil (Seg) 91 % High 36-[address] [facility] Comment on above: Performed By: #### C DP, CPBILX #### [address] [address] Deputy Felony Clerk: Ismael Lawson MD NRBC Automated 0.0 per 100 WBC Normal 0.0 [facility] Comment on above: Performed By: #### C DP, CPBILX #### [address] [address] Deputy Felony Clerk: Ismael Lawson MD Platelet mean volume (Bld) [Entitic vol] 11.0 fL Normal 8.1-13.5 [facility] Comment on above: Performed By: #### C DP, CPBILX #### [address] [address] Deputy Felony Clerk: Ismael Lawson MD Platelets (Bld) [#/Vol] 281 10*3/uL Normal 138-453 [facility] Comment on above: Performed By: #### C DP, CPBILX #### [address] [address] Deputy Felony Clerk: Ismael Lawson MD RBC (Bld) [#/Vol] 4.07 10*6/uL Normal 3.95-5.11 [facility] Comment on above: Performed By: #### C DP, CPBILX #### [address] [address] Deputy Felony Clerk: Ismael Lawson MD RBC morphology finding Nom (Bld) ANISOCYTOSIS PRESENT Normal [facility] Comment on above: Performed By: #### C DP, CPBILX #### [address] [address] Deputy Felony Clerk: Ismael Lawson MD WBC (Bld) [#/Vol] 9.5 10*3/uL Normal 3.5-11.3 [facility] Comment on above: Performed By: #### C DP, CPBILX #### [address] [address] Deputy Felony Clerk: Ismael Lawson MD Comp Met+Bili/rfx MGon 03-06 Creatinine [Mass/Vol] 0.32 mg/dL Low 0.50-0.90 [facility] Comment on above: Result Comment: ICTE AGATA SPECIMEN Performed By: #### C DP, CPBILX #### [facility] [address] [place] [address] Deputy Felony Clerk: Ismael Lawson MD GFR/1.73 sq M.predicted among non-blacks MDRD (S/P/Bld) [Vol rate/Area] mL/min/{1.73_m2} Normal >60 [facility] Comment on above: Result Comment: These results [...] Performed By: #### C DP, CPBILX #### [facility] [address] [place] [address] Deputy Felony Clerk: Ismael Lawson MD Albumin [Mass/Vol] 2.8 g/dL Low 3.5-5.2 [facility] Comment on above: Performed By: #### C DP, CPBILX #### [facility] [address] [place] [address] Deputy Felony Clerk: Ismael Lawson MD Albumin/Glob Ratio 0.8 Low 1.0-2.5 [facility] Comment on above: Performed By: #### C DP, CPBILX #### [facility] [address] [place] [address] Deputy Felony Clerk: Ismael Lawson MD Alkaline Phos 747 U/L High 35-104 [facility] Comment on above: Performed By: #### C DP, CPBILX #### [facility] [address] [place] [address] Deputy Felony Clerk: Ismael Lawson MD ALT [Catalytic activity/Vol] 133 U/L High 5-33 [facility] Comment on above: Performed By: #### C DP, CPBILX #### [address] [address] Deputy Felony Clerk: Ismael Lawson MD Anion gap [Moles/Vol] 14 mmol/L Normal 9-17 [facility] Comment on above: Performed By: #### C DP, CPBILX #### [address] [address] Deputy Felony Clerk: Ismael Lawson MD AST [Catalytic activity/Vol] 82 U/L High <32 [facility] Comment on above: Performed By: #### C DP, CPBILX #### [facility] [address] [place] [address] Deputy Felony Clerk: Ismael Lawson MD Bilirubin [Mass/Vol] 7.6 mg/dL High 0.3-1.2 [facility] Comment on above: Performed By: #### C DP, CPBILX #### [address] [address] Deputy Felony Clerk: Ismael Lawson MD Bilirubin, Indirect 1.5 mg/dL High 0.0-1.0 [facility] Comment on above: Performed By: #### C DP, CPBILX #### [address] [address] Deputy Felony Clerk: Ismael Lawson MD Bilirubin.indirect [Mass/Vol] 6.1 mg/dL High <0.3 [facility] Comment on above: Performed By: #### C DP, CPBILX #### [facility] [address] [place] [address] Deputy Felony Clerk: Ismael Lawson MD Calcium [Mass/Vol] 8.9 mg/dL Normal 8.6-10.4 [facility] Comment on above: Performed By: #### C DP, CPBILX #### [facility] [address] [place] [address] Deputy Felony Clerk: Ismael Lawson MD Chloride [Moles/Vol] 107 mmol/L Normal 98-107 [facility] Comment on above: Performed By: #### C DP, CPBILX #### [facility] [address] [place] [address] Deputy Felony Clerk: Ismael Lawson MD CO2 [Moles/Vol] 17 mmol/L Low 20-31 [facility] Comment on above: Performed By: #### C DP, CPBILX #### [address] [address] Deputy Felony Clerk: Ismael Lawson MD Glucose [Mass/Vol] 156 mg/dL High 70-99 [facility] Comment on above: Performed By: #### C DP, CPBILX #### [facility] [address] [place] [address] Deputy Felony Clerk: Ismael Lawson MD Potassium [Moles/Vol] 4.1 mmol/L Normal 3.7-5.3 [facility] Comment on above: Performed By: #### C DP, CPBILX #### [address] [address] Deputy Felony Clerk: Ismael Lawson MD Protein [Mass/Vol] 6.5 g/dL Normal 6.4-8.3 [facility] Comment on above: Performed By: #### C DP, CPBILX #### [facility] [address] [place] [address] Deputy Felony Clerk: Ismael Lawson MD Sodium [Moles/Vol] 138 mmol/L Normal 135-144 [facility] Comment on above: Performed By: #### C DP, CPBILX #### [facility] [address] [place] [address] Deputy Felony Clerk: Ismael Lawson MD Urea nitrogen [Mass/Vol] 10 mg/dL Normal 8-23 [facility] Comment on above: Performed By: #### C DP, CPBILX #### [place] [address] Deputy Felony Clerk: Ismael Lawson MD FLUORO FOR SURGICAL PROCEDUR ESon 03-06-2023 FLUORO FOR SURGICAL PROCEDURES Radiology exam is complete. No Radiologist dictation. Please follow up with ordering provider. Final result Normal [facility] CBC with Diffon 03-05-2023 Abs. Atypical Lymphs 0.15 k/uL Normal [facility] Comment on above: Performed By: #### C DP, CPBILX #### [place] [address] Deputy Felony Clerk: Ismael Lawson MD Abs. Basophil 0.00 k/uL Normal 0.0-0.2 [facility] Comment on above: Performed By: #### C DP, CPBILX #### [address] [address] Deputy Felony Clerk: Ismael Lawson MD Abs.Imm.Granulocyte 0.00 k/uL Normal 0.00-0.30 [facility] Comment on above: Performed By: #### C DP, CPBILX #### [address] [address] Deputy Felony Clerk: Ismael Lawson MD Abs.Neutrophil (Seg) 14.33 k/uL High 1.8-7.7 [facility] Comment on above: Performed By: #### C DP, CPBILX #### [address] [address] Deputy Felony Clerk: Ismael Lawson MD Atypical Lymphs 1 % Normal [facility] Comment on above: Performed By: #### C DP, CPBILX #### [facility] [address] [place] [address] Deputy Felony Clerk: Ismael Lawson MD Basophils/100 WBC (Bld) 0 % Normal 0-2 [facility] Comment on above: Performed By: #### C DP, CPBILX #### [address] [address] Deputy Felony Clerk: Ismael Lawson MD Eosinophils (Bld) [#/Vol] 0.00 10*3/uL Normal 0.0-0.4 [facility] Comment on above: Performed By: #### C DP, CPBILX #### [address] [address] Deputy Felony Clerk: Ismael Lawson MD Eosinophils/100 WBC (Bld) 0 % Low 1-4 [facility] Comment on above: Performed By: #### C DP, CPBILX #### [address] [address] Deputy Felony Clerk: Ismael Lawson MD Immature granulocytes/100 WBC (Bld) 0 % Normal 0 [facility] Comment on above: Performed By: #### C DP, CPBILX #### [address] [address] Deputy Felony Clerk: Ismael Lawson MD Lymphocytes (Bld) [#/Vol] 0.46 10*3/uL Low 1.0-4.8 [facility] Comment on above: Performed By: #### C DP, CPBILX #### [address] [address] Deputy Felony Clerk: Ismael Lawson MD Lymphocytes/100 WBC (Bld) 3 % Low 24-44 [facility] Comment on above: Performed By: #### C DP, CPBILX #### [address] [address] Deputy Felony Clerk: Ismael Lawson MD Monocytes (Bld) [#/Vol] 0.46 10*3/uL Normal 0.1-0.8 [facility] Comment on above: Performed By: #### C DP, CPBILX #### [address] [address] Deputy Felony Clerk: Ismael Lawson MD Monocytes/100 WBC (Bld) 3 % Normal 1-7 [facility] Comment on above: Performed By: #### C DP, CPBILX #### [address] [address] Deputy Felony Clerk: Ismael Lawson MD Morphology Fracisco (Bld) [Interp] ANISOCYTOSIS PRESENT Normal [facility] Comment on above: Performed By: #### C DP, CPBILX #### [address] [address] Deputy Felony Clerk: Ismael Lawson MD Neutrophil (Seg) 93 % High 36-[address] [facility] Comment on above: Performed By: #### C DP, CPBILX #### [address] [address] Deputy Felony Clerk: Ismael Lawson MD Erythrocyte distribution width (RBC) [Ratio] 15.0 % High 11.8-14.4 [facility] Comment on above: Performed By: #### C DP, CPBILX #### [address] [address] Deputy Felony Clerk: Ismael Lawson MD Hematocrit (Bld) [Volume fraction] 37.5 % Normal 36.3-47.1 [facility] Comment on above: Performed By: #### C DP, CPBILX #### [address] [address] Deputy Felony Clerk: Ismael Lawson MD Hemoglobin (Bld) [Mass/Vol] 12.7 g/dL Normal 11.9-15.1 [facility] Comment on above: Performed By: #### C DP, CPBILX #### [address] [address] Deputy Felony Clerk: Ismael Lawson MD MCH (RBC) [Entitic mass] 32.4 pg Normal 25.2-33.5 [facility] Comment on above: Performed By: #### C DP, CPBILX #### [place] [address] Deputy Felony Clerk: Ismael Lawson MD MCHC (RBC) [Mass/Vol] 33.9 g/dL Normal 28.4-34.8 [facility] Comment on above: Performed By: #### C DP, CPBILX #### [address] [address] Deputy Felony Clerk: Ismael Lawson MD MCV (RBC) [Entitic vol] 95.7 fL Normal 82.6-102.9 [facility] Comment on above: Performed By: #### C DP, CPBILX #### [address] [address] Deputy Felony Clerk: Ismael Lawson MD NRBC Automated 0.0 per 100 WBC Normal 0.0 [facility] Comment on above: Performed By: #### C DP, CPBILX #### [place] [address] Deputy Felony Clerk: Ismael Lawson MD Platelet mean volume (Bld) [Entitic vol] 10.7 fL Normal 8.1-13.5 [facility] Comment on above: Performed By: #### C DP, CPBILX #### [address] [address] Deputy Felony Clerk: Ismael Lawson MD Platelets (Bld) [#/Vol] 272 10*3/uL Normal 138-453 [facility] Comment on above: Performed By: #### C DP, CPBILX #### [facility] [address] [place] [address] Deputy Felony Clerk: Ismael Lawson MD RBC (Bld) [#/Vol] 3.92 10*6/uL Low 3.95-5.11 [facility] Comment on above: Performed By: #### C DP, CPBILX #### [address] [address] Deputy Felony Clerk: Ismael Lawson MD WBC (Bld) [#/Vol] 15.4 10*3/uL High 3.5-11.3 [facility] Comment on above: Performed By: #### C DP, CPBILX #### [address] [address] Deputy Felony Clerk: Ismael Lawson MD Calcium, Ionicon 03-05-2023 Calcium [Moles/Vol] 1.09 mmol/L Low 1.13-1.33 [facility] Comment on above: Performed By: #### C MPX, MG, TRIG, SIVA, LIP, IOCAL #### [facility] [address] [place] [address] Deputy Felony Clerk: Ismael Lawson MD Comp Metabolic Pr/rfx MGon 0 03-05-2023 Creatinine [Mass/Vol] 0.42 mg/dL Low 0.50-0.90 [facility] Comment on above: Result Comment: ICTE AGATA SPECIMEN Performed By: #### C MPX, MG, TRIG, SIVA, LIP, IOCAL #### [facility] [address] [place] [address] Deputy Felony Clerk: Ismael Lawson MD GFR/1.73 sq M.predicted among non-blacks MDRD (S/P/Bld) [Vol rate/Area] mL/min/{1.73_m2} Normal >60 [facility] Comment on above: Result Comment: These results [...] MPX, MG, TRIG, SIVA, LIP, IOCAL #### [address] [address] Deputy Felony Clerk: Ismael Lawson MD Potassium [Moles/Vol] 3.5 mmol/L Low 3.7-5.3 [facility] Comment on above: Performed By: #### C MPX, MG, TRIG, SIVA, LIP, IOCAL #### [place] [address] Deputy Felony Clerk: Ismael Lawson MD Albumin [Mass/Vol] 3.0 g/dL Low 3.5-5.2 [facility] Comment on above: Performed By: #### C MPX, MG, TRIG, SIVA, LIP, IOCAL #### [address] [address] Deputy Felony Clerk: Ismael Lawson MD Albumin/Glob Ratio 0.9 Low 1.0-2.5 [facility] Comment on above: Performed By: #### C MPX, MG, TRIG, SIVA, LIP, IOCAL #### [facility] [address] [place] [address] Deputy Felony Clerk: Ismael Lawson MD Alkaline Phos 708 U/L High 35-104 [facility] Comment on above: Performed By: #### C MPX, MG, TRIG, SIVA, LIP, IOCAL #### [facility] [address] [place] [address] Deputy Felony Clerk: Ismael Lawson MD ALT [Catalytic activity/Vol] 160 U/L High 5-33 [facility] Comment on above: Performed By: #### C MPX, MG, TRIG, SIVA, LIP, IOCAL #### [address] [address] Deputy Felony Clerk: Ismael Lawson MD Anion gap [Moles/Vol] 14 mmol/L Normal 9-17 [facility] Comment on above: Performed By: #### C MPX, MG, TRIG, SIVA, LIP, IOCAL #### [address] [address] Deputy Felony Clerk: Ismael Lawson MD AST [Catalytic activity/Vol] 91 U/L High <32 [facility] Comment on above: Performed By: #### C MPX, MG, TRIG, SIVA, LIP, IOCAL #### [address] [address] Deputy Felony Clerk: Ismael Lawson MD Bilirubin [Mass/Vol] 7.9 mg/dL High 0.3-1.2 [facility] Comment on above: Performed By: #### C MPX, MG, TRIG, SIVA, LIP, IOCAL #### [address] [address] Deputy Felony Clerk: Ismael Lawson MD Calcium [Mass/Vol] 8.7 mg/dL Normal 8.6-10.4 [facility] Comment on above: Performed By: #### C MPX, MG, TRIG, SIVA, LIP, IOCAL #### [address] [address] Deputy Felony Clerk: Ismael Lawson MD Chloride [Moles/Vol] 103 mmol/L Normal 98-107 [facility] Comment on above: Performed By: #### C MPX, MG, TRIG, SIVA, LIP, IOCAL #### [address] [address] Deputy Felony Clerk: Ismael Lawson MD CO2 [Moles/Vol] 18 mmol/L Low 20-31 [facility] Comment on above: Performed By: #### C MPX, MG, TRIG, SIVA, LIP, IOCAL #### [address] [address] Deputy Felony Clerk: Ismael Lawson MD Glucose [Mass/Vol] 132 mg/dL High 70-99 [facility] Comment on above: Performed By: #### C MPX, MG, TRIG, SIVA, LIP, IOCAL #### [address] [address] Deputy Felony Clerk: Ismael Lawson MD Protein [Mass/Vol] 6.2 g/dL Low 6.4-8.3 [facility] Comment on above: Performed By: #### C MPX, MG, TRIG, SIVA, LIP, IOCAL #### [address] [address] Deputy Felony Clerk: Ismael Lawson MD Sodium [Moles/Vol] 135 mmol/L Normal 135-144 [facility] Comment on above: Performed By: #### C MPX, MG, TRIG, SIVA, LIP, IOCAL #### [address] [address] Deputy Felony Clerk: Ismael Lawson MD Urea nitrogen [Mass/Vol] 14 mg/dL Normal 8-23 [facility] Comment on above: Performed By: #### C MPX, MG, TRIG, SIVA, LIP, IOCAL #### [address] [address] Deputy Felony Clerk: Ismael Lawson MD Lipaseon 03-05-2023 Lipase [Catalytic activity/Vol] 30 U/L Normal 13-60 [facility] Comment on above: Performed By: #### C MPX, MG, TRIG, SIVA, LIP, IOCAL #### [facility] [address] [place] [address] Deputy Felony Clerk: Ismael Lawson MD MRI ABDOMEN W WO [...] provided for review. COMPARISON: Outside [facility] from [facility] 03/04/2023 HISTORY: ORDERING SYSTEM PROVIDED HISTORY: Rule [...] Interpreted by: Colton Mathew MD Signed by: Colton Mathew MD 03/05/23 Final result Normal [facility] Magnesiumon 03-05-2023 Magnesium [Mass/Vol] 2.0 mg/dL Normal 1.6-2.6 [facility] Comment on above: Performed By: #### C MPX, MG, TRIG, SIVA, LIP, IOCAL #### [employer] [address] [place] [address] [phone] Deputy Felony Clerk: Ismael Lawson MD PTon 03-05-2023 INR Coag (PPP) [Relative time] 1.0 {INR} Normal [facility] Comment on above: Result Comment: Therapeutic Range: Moderate Anticoagulant Intensity: INR = 2.0-3.0 High Anticoagulant Intensity: INR = 2.5-3.5 Performed By: #### C DP, CPBILX #### [facility] [address] [place] [address] [phone] Deputy Felony Clerk: Ismael Lawson MD PT Coag (PPP) [Time] 12.8 s Normal 11.7-14.9 [facility] Comment on above: Performed By: #### C DP, CPBILX #### [facility] [address] [place] [address] Deputy Felony Clerk: Ismael Lawson MD Phosphorus, Inorg.on 023 Phosphorus, Inorg. 3.4 mg/dL Normal 2.6-4.5 [facility] Comment on above: Performed By: #### C MPX, MG, TRIG, SIVA, LIP, IOCAL #### [facility] [address] [place] [address] [phone] Deputy Felony Clerk: Ismael Lawson MD Triglycerideson 03-05-2023 Triglyceride [Mass/Vol] 83 mg/dL Normal <150 [facility] Comment on above: Result Comment: Triglyceride Guidelines: <150 Desirable 150-199 Borderline 200-499 High >499 Very high Based on AHA Guidelines for fasting triglyceride, June 2012. Performed By: #### C MPX, MG, TRIG, SIVA, LIP, IOCAL #### [facility] [address] [place] [address] [phone] Deputy Felony Clerk: Ismael Lawson MD COMPREHENSIVE METABOLIC PANE Sandeep 02-05-2022 Albumin [Mass/Vol] 4.1 g/dL Normal 3.6-5.1 [facility] Comment on above: Performed By: #### 1 0231, 7600 #### [facility] [address], [address] [place] [address] Yardage Estimator: Wero Barros MD Albumin/Globulin [Mass ratio] 1.6 {ratio} Normal 1.0-2.5 [facility] Comment on above: Performed By: #### 1 023, 7600 #### [facility] of [place] [address] Yardage Estimator: Wero Barros MD ALP [Catalytic activity/Vol] 74 U/L Normal 37-153 [facility] Comment on above: Performed By: #### 1 023, 7600 #### [facility] [place] [address] Yardage Estimator: Wero Barros MD ALT [Catalytic activity/Vol] 17 U/L Normal 6-29 [facility] Comment on above: Performed By: #### 1 023, 7600 #### [facility] [place] [address] Yardage Estimator: Wero Barros MD AST [Catalytic activity/Vol] 16 U/L Normal 10-35 [facility] Comment on above: Performed By: #### 1 023, 7600 #### [facility] [place] [address] Yardage Estimator: Wero Barros MD Bilirubin [Mass/Vol] 0.9 mg/dL Normal 0.2-1.2 [facility] Comment on above: Performed By: #### 1 023, 7600 #### [facility] [place] [address] Yardage Estimator: Wero Barros MD Calcium [Mass/Vol] 9.0 mg/dL Normal 8.6-10.4 [facility] Comment on above: Performed By: #### 1 0231, 7600 #### [facility] [place] [address] Yardage Estimator: Wero Barros MD Chloride [Moles/Vol] 107 mmol/L Normal 98-110 [facility] Comment on above: Performed By: #### 1 0231, 7600 #### [facility] [place] [address] Yardage Estimator: Wero Barros MD CO2 [Moles/Vol] 25 mmol/L Normal 20-32 [facility] Comment on above: Performed By: #### 1 023, 7600 #### [facility] [place] [address] Yardage Estimator: Wero Barros MD Creatinine [Mass/Vol] 0.59 mg/dL Low 0.60-0.88 [facility] Comment on above: Result Comment: For patients >49 years of age, the reference limit for Creatinine is approximately 13% higher for people identified as -English. Performed By: #### 1 230, 760 #### [facility] [place] [address] Yardage Estimator: Wero Barros MD eGFR NON-AFR. GUYANESE 85 mL/min/1.73m2 Normal > OR = 60 [facility] Comment on above: Performed By: #### 1 230, 7599 #### [facility] [place] [address] Yardage Estimator: Wero Barros MD GFR/1.73 sq M.predicted among blacks MDRD (S/P/Bld) [Vol rate/Area] 99 mL/min/{1.73_m2} Normal > OR = 60 [facility] Comment on above: Performed By: #### 1 230, 7600 #### [facility] [place] [address] Yardage Estimator: Wero Barros MD Globulin (S) [Mass/Vol] 2.5 g/dL Normal 1.9-3.7 [facility] Comment on above: Performed By: #### 1 023, 7600 #### [facility] [place] [address] Yardage Estimator: Wero Barros MD Glucose [Mass/Vol] 93 mg/dL Normal 65-99 [facility] Comment on above: Result Comment: Fasting reference interval Performed By: #### 1 0231, 7600 #### [facility] of [address], [address] [place] [address] Yardage Estimator: Wero Barros MD Potassium [Moles/Vol] 4.0 mmol/L Normal 3.5-5.3 [facility] Comment on above: Performed By: #### 1 0231, 7600 #### [facility] of [address], [address] [place] [address] Yardage Estimator: Wero Barros MD Protein [Mass/Vol] 6.6 g/dL Normal 6.1-8.1 [facility] Comment on above: Performed By: #### 1 0231, 7600 #### [facility] of [address], [address] [place] [address] Yardage Estimator: Wero Barros MD Sodium [Moles/Vol] 141 mmol/L Normal 135-146 [facility] Comment on above: Performed By: #### 1 0231, 7600 #### [facility] of [address], [address] [place] [address] Yardage Estimator: Wero Barros MD Urea nitrogen [Mass/Vol] 16 mg/dL Normal 7-25 [facility] Comment on above: Performed By: #### 1 0231, 7600 #### [facility] of [address], [address] [place] [address] Yardage Estimator: Wero Barros MD Urea nitrogen/Creatinine [Mass ratio] 27 mg/mg High 6-22 [facility] Comment on above: Performed By: #### 1 0231, 7600 #### [facility] of [address], [address] [place] [address] Yardage Estimator: Wero Barros MD LIPID PANEL, [facility] Cholesterol [Mass/Vol] 168 mg/dL Normal <200 [facility] Comment on above: Order Comment: FASTI NG:YES FASTING: YES Performed By: #### 1 0231, 7600 #### [facility] of [address], [address] [place], [place] [address] Yardage Estimator: Wero Barros MD Cholesterol in HDL [Mass/Vol] 53 mg/dL Normal > OR = 50 [facility] Comment on above: Order Comment: FASTI NG:YES FASTING: YES Performed By: #### 1 023, 7600 #### [facility] [address], [address] [place] [address] Yardage Estimator: Wero Barros MD Cholesterol in LDL [Mass/Vol] [...] LDL-C. Leland SS et al. PAVITHRA. 2013;310(19): [id number] (http://education.FORMTEK.Giant Realm/faq/UHP024) Performed By: #### 1 230, 0 #### [facility] [place] [address] Yardage Estimator: Wero Barros MD Cholesterol.total/C holesterol in HDL [Mass ratio] 3.2 {ratio} Normal <5.0 [facility] Comment on above: Order Comment: FASTI NG:YES FASTING: YES Performed By: #### 1 023, 0 #### [facility] [address], [address] [place] [address] Yardage Estimator: Wero Barros MD NON HDL CHOLESTEROL 115 mg/dL (calc) Normal <130 [facility] Comment on above: Order Comment: FASTI NG:YES FASTING: YES Result Comment: For patients with diabetes plus 1 major ASCVD risk factor, treating to a non-HDL-C goal of <100 mg/dL (LDL-C of <70 mg/dL) is considered a therapeutic option. Performed By: #### 1 023, 1860 #### [facility] [place] [address] [place] [address] Yardage Estimator: Wero Barros MD Triglyceride [Mass/Vol] 140 mg/dL Normal <150 [facility] Comment on above: Order Comment: FASTI NG:YES FASTING: YES Performed By: #### 1 0231, 7600 #### [facility] [place] [address] Yardage Estimator: Wero Barros MD [facility] 07-31-2021 Albumin [Mass/Vol] 4.3 g/dL Normal 3.6-5.1 [facility] Comment on above: Performed By: #### 7 600, 99355 #### [facility] [place] [address] Yardage Estimator: Wero Barros MD Albumin/Globulin [Mass ratio] 1.6 {ratio} Normal 1.0-2.5 [facility] Comment on above: Performed By: #### 7 600, 49534 #### [facility] of [place] [address] Yardage Estimator: Wero Barros MD ALP [Catalytic activity/Vol] 91 U/L Normal 37-153 [facility] Comment on above: Performed By: #### 7 600, 59504 #### [facility] [place] [address] Yardage Estimator: Wero Barros MD ALT [Catalytic activity/Vol] 145 U/L High 6-29 [facility] Comment on above: Performed By: #### 7 600, 84674 #### [facility] [place] [address] Yardage Estimator: Wero Barros MD AST [Catalytic activity/Vol] 65 U/L High 10-35 [facility] Comment on above: Performed By: #### 7 600, 01591 #### [facility] [place] [address] Yardage Estimator: Wero Barros MD Bilirubin [Mass/Vol] 0.8 mg/dL Normal 0.2-1.2 [facility] Comment on above: Performed By: #### 7 600, 77083 #### [facility] [place] [address] Yardage Estimator: Wero Barros MD BUN/CREATININE RATIO NOT APPLICABLE Normal 6-22 [facility] Comment on above: Performed By: #### 7 600, 08586 #### [facility] [place] [address] Yardage Estimator: Wero Barros MD Calcium [Mass/Vol] 8.8 mg/dL Normal 8.6-10.4 [facility] Comment on above: Performed By: #### 7 600, 94550 #### [facility] [place] [address] Yardage Estimator: Wero Barros MD Chloride [Moles/Vol] 107 mmol/L Normal 98-110 [facility] Comment on above: Performed By: #### 7 600, 93565 #### [facility] [place] [address] Yardage Estimator: Wero Barros MD CO2 [Moles/Vol] 26 mmol/L Normal 20-32 [facility] Comment on above: Performed By: #### 7 600, 79116 #### [facility] [place] [address] Yardage Estimator: Wero Barros MD Creatinine [Mass/Vol] 0.70 mg/dL Normal 0.60-0.88 [facility] Comment on above: Result Comment: For patients >49 years of age, the reference limit for Creatinine is approximately 13% higher for people identified as -English. Performed By: #### 7 600, 72350 #### [facility] [place] [address] Yardage Estimator: Wero Barros MD eGFR NON-AFR. GUYANESE 81 mL/min/1.73m2 Normal > OR = 60 [facility] Comment on above: Performed By: #### 7 600, 76004 #### [facility] [address] [place] [address] Yardage Estimator: Wero Barros MD GFR/1.73 sq M.predicted among blacks MDRD (S/P/Bld) [Vol rate/Area] 94 mL/min/{1.73_m2} Normal > OR = 60 [facility] Comment on above: Performed By: #### 7 600, 72302 #### [facility] [place] [address] Yardage Estimator: Wero Barros MD Globulin (S) [Mass/Vol] 2.7 g/dL Normal 1.9-3.7 [facility] Comment on above: Performed By: #### 7 600, 97822 #### [facility] [place] [address] Yardage Estimator: Wero Barros MD Glucose [Mass/Vol] 133 mg/dL High 65-99 [facility] Comment on above: Result Comment: Fasting reference interval For someone without known diabetes, a glucose value >125 mg/dL indicates that they may have diabetes and this should be confirmed with a follow-up test. Performed By: #### 7 600, 28992 #### [facility] [place] [address] Yardage Estimator: Wero Barros MD Potassium [Moles/Vol] 4.0 mmol/L Normal 3.5-5.3 [facility] Comment on above: Performed By: #### 7 600, 44188 #### [facility] [place] [address] Yardage Estimator: Wero Barros MD Protein [Mass/Vol] 7.0 g/dL Normal 6.1-8.1 [facility] Comment on above: Performed By: #### 7 600, 53704 #### [facility] [place] [address] Yardage Estimator: Wero Barros MD Sodium [Moles/Vol] 140 mmol/L Normal 135-146 [facility] Comment on above: Performed By: #### 7 600, 42018 #### [facility] of [address], [address] [place] [address] Yardage Estimator: Wero Barros MD Urea nitrogen [Mass/Vol] 21 mg/dL Normal 7-25 [facility] Comment on above: Performed By: #### 7 600, 58361 #### [facility] [address], [address] [place] [address] Yardage Estimator: Wero Barros MD LIPID PANEL, [place] [address] Cholesterol [Mass/Vol] 162 mg/dL Normal <200 [facility] Comment on above: Performed By: #### 7 600, 14018 #### [facility] [address], [address] [place] [address] Yardage Estimator: Wero Barros MD Cholesterol in HDL [Mass/Vol] 55 mg/dL Normal > OR = 50 [facility] Comment on above: Performed By: #### 7 600, 57053 #### [facility] [address], [address] [place] [address] Yardage Estimator: Wero Barros MD Cholesterol in LDL [Mass/Vol] 84 mg/dL Normal [facility] Comment on above: Result Comment: Refe rence range: <100 Desirable range <100 mg/dL for primary prevention; <70 mg/dL for patients with CHD or diabetic patients with > or = 2 CHD risk factors. LDL-C is now calculated using the Soífa calculation, which is a validated novel method providing better accuracy than the Friedewald equation in the estimation of LDL-C. Leland GONZALEZ et al. PAVITHRA. 2013;310(19): 8890-9772 (http://education.FORMTEK.Giant Realm/faq/OUC948) Performed By: #### 7 600, 30569 #### [facility] [address], [address] [place] [address] Yardage Estimator: Wero Barros MD Cholesterol.total/C holesterol in HDL [Mass ratio] 2.9 {ratio} Normal <5.0 [facility] Comment on above: Performed By: #### 7 600, 26060 #### [facility] [address], [address] [place] [address] Yardage Estimator: Wero Barros MD NON HDL CHOLESTEROL 107 mg/dL (calc) Normal <130 [facility] Comment on above: Result Comment: For patients with diabetes plus 1 major ASCVD risk factor, treating to a non-HDL-C goal of <100 mg/dL (LDL-C of <70 mg/dL) is considered a therapeutic option. Performed By: #### 7 600, 20360 #### [facility] [address], [address] [place] [address] Yardage Estimator: Wero Barros MD Triglyceride [Mass/Vol] 132 mg/dL Normal <150 [facility] Comment on above: Performed By: #### 7 600, 22905 #### [facility] [address], [address] [place] [address] Yardage Estimator: Wero Barros MD XR FOOT RT MIN [...] by: CHRIS FARFAN Date: 2020-03-12 16:05 [facility] XR HAND LT MIN 3Von 03-12-20 [...] by: NBA LAINEZ Date: 2020-03-12 15:53 Normal [facility] Vital Signs Date Time Vital Sign Value Performing Clinician Facility 07-12-2024 16:02-0500 Body mass index (BMI) [Ratio] 39.75 kg/m2 Mark Rey DO Work Phone: [email or web address] 07-12-2024 16:02-0500 Body temperature 97.39 [degF] Mark Furlong DO Work Phone: [facility] [employer] [facility] 07-12-2024 16:02-0500 Body weight 89.27 kg Mark Furlong DO Work Phone: [facility] [employer] [facility] 07-12-2024 16:02-0500 Diastolic blood pressure 52 mm[Hg] Mark Furlong DO Work Phone: [facility] [employer] [facility] 07-12-2024 16:02-0500 Heart rate 82 /min Mark Furlong DO Work Phone: [facility] [employer] [facility] 07-12-2024 16:02-0500 SaO2% (BldA) [Mass fraction] 95 % Mark Furlong DO Work Phone: [facility] [employer] [facility] 07-12-2024 16:02-0500 Systolic blood pressure 124 mm[Hg] Mark Furlong DO Work Phone: [facility] [employer] [facility] 06-08-2024 16:01-0400 Body height 149.9 cm Mark Furlong DO Work Phone: [facility] [employer] [facility] 06-08-2024 16:01-0400 Body mass index (BMI) [Ratio] 38.96 kg/m2 Mark Furlong DO Work Phone: [facility] [employer] [facility] 06-08-2024 16:01-0400 Body temperature 97.5 [degF] Mark Furlong DO Work Phone: [facility] [employer] [facility] 06-08-2024 16:01-0400 Body weight 87.5 kg Mark Furlong DO Work Phone: [facility] 06-08-2024 16:01-0400 Diastolic blood pressure 62 mm[Hg] Mark Furlong DO Work Phone: [facility] [employer] [facility] 06-08-2024 16:01-0400 Heart rate 128 /min Mark Furlong DO Work Phone: [facility] 06-08-2024 16:01-0400 SaO2% (BldA) [Mass fraction] 98 % Mark Lincolnlong DO Work Phone: [facility] 06-08-2024 16:01-0400 Systolic blood pressure 124 mm[Hg] Mark Lincolnlong DO Work Phone: [facility] 05-11-2024 15:54-0400 Body height 149.86 cm [facility] 05-11-2024 15:54-0400 Body mass index (BMI) [Ratio] 38.2 kg/m2 [facility] 05-11-2024 15:54-0400 Body temperature 96.8 [degF] [facility] 05-11-2024 15:54-0400 Body weight 85.95 kg [facility] 05-11-2024 15:54-0400 Diastolic blood pressure 82 mm[Hg] [facility] 05-11-2024 15:54-0400 Heart rate 66 /min [facility] 05-11-2024 15:54-0400 Respiratory rate 16 /min [facility] 05-11-2024 15:54-0400 SaO2% (BldA) [Mass fraction] 98 % [facility] 05-11-2024 15:54-0400 Systolic blood pressure 160 mm[Hg] [facility] 09-30-2023 15:39-0500 Body height 149.9 cm Mark Lincolnlong DO Work Phone: [facility] 09-30-2023 15:39-0500 Body mass index (BMI) [Ratio] 36.15 kg/m2 Mark Furlong DO Work Phone: [facility] 09-30-2023 15:39-0500 Body temperature 97.7 [degF] Mark Lincolnlong DO Work Phone: [facility] 09-30-2023 15:39-0500 Body weight 81.19 kg Mark Furlong DO Work Phone: [facility] [employer] [facility] 09-30-2023 15:39-0500 Diastolic blood pressure 80 mm[Hg] Mark Rey DO Work Phone: [facility] [employer] [facility] 09-30-2023 15:39-0500 Heart rate 73 /min Mark Rey DO Work Phone: [facility] [employer] [facility] 09-30-2023 15:39-0500 SaO2% (BldA) [Mass fraction] 99 % Mark Rey DO Work Phone: [facility] [employer] [facility] 09-30-2023 15:39-0500 Systolic blood pressure 118 mm[Hg] Mark Rey DO Work Phone: [facility] Encounters Encounter Date Encounter Type Care Provider Facility Start: 08-16-2024 End: 08-16-2024 ambulatory Edwin Tolentino MD Facility:[facility] Start: 08-06-2024 End: 08-06-2024 Refill Felecia Albarran CMA [facility] Start: 08-02-2024 End: 08-02-2024 Orders Only Mark Rey DO Work Phone: [facility] Start: 07-28-2024 End: 07-28-2024 Refill Mark Rey DO Work Phone: [facility] Comment on above: Essential hypertensi on Start: 07-27-2024 End: 08-02-2024 Telephone encounter Mark Rey DO Work Phone: [facility] Start: 07-26-2024 End: 07-26-2024 ambulatory Edwin Tolentino MD Facility:[facility] Start: 07-12-2024 End: 07-12-2024 ambulatory MARK REY [facility] Start: 07-12-2024 End: 07-12-2024 Office outpatient visit 25 minutes Mark Rey DO Work Phone: [facility] Comment on above: Acute left-sided low back pain with left-sided sciatica (Primary Dx); Pedal edema; Piriformis syndrome of left side; Obesity, morbid (CMS-HCC); Essential hypertension; Hypokalemia; Leukocytosis, unspecified type Start: 07-12-2024 End: 07-12-2024 ambulatory MARK REY [facility] Start: 07-08-2024 End: 07-09-2024 Telephone encounter Mark Rey DO Work Phone: [facility] Start: 07-05-2024 End: 07-05-2024 Orders Only Mark Rey DO Work Phone: [facility] Start: 07-01-2024 End: 07-01-2024 Orders Only Mark Rey DO Work Phone: [facility] Comment on above: Lumbar radiculopathy , chronic (Primary Dx) Start: 07-01-2024 End: 07-01-2024 Refill Mark Rey DO Work Phone: [facility] Start: 06-23-2024 End: 06-23-2024 Orders Only Mark Rey DO Work Phone: [facility] Comment on above: Acute left-sided low back pain with left-sided sciatica (Primary Dx) Start: 06-11-2024 End: 06-11-2024 Refill Mark Rey DO Work Phone: [facility] Comment on above: Essential hypertensi on Start: 06-08-2024 End: 06-08-2024 Office outpatient visit 25 minutes Mark Rey DO Work Phone: [facility] Comment on above: Acute left-sided low back pain with left-sided sciatica (Primary Dx); Pedal edema; Piriformis syndrome of left side Start: 06-08-2024 End: 06-08-2024 ambulatory [facility] Start: 06-02-2024 End: 06-04-2024 Telephone encounter Mark Rey DO Work Phone: [facility] Start: 05-11-2024 ambulatory [facility] Start: 05-11-2024 End: 05-11-2024 ambulatory [facility] Work Phone: Start: 05-11-2024 End: 05-11-2024 Patient encounter procedure [facility] Work Phone: Start: 05-02-2024 End: 05-02-2024 Emergency department patient visit [facility] Start: 04-30-2024 End: 04-30-2024 ambulatory [facility] Start: 04-26-2024 End: 04-26-2024 ambulatory [facility] Start: 03-03-2024 End: 03-03-2024 ambulatory ORIANA PINTO Not Available Start: 02-19-2024 End: 02-19-2024 [facility] Start: 02-02-2024 End: 03-01-2024 ambulatory [facility] Start: 01-15-2024 End: 01-15-2024 ambulatory [facility] Start: 11-06-2023 End: 11-06-2023 ambulatory Markmaryam Lincolnivan DO Work Phone: [facility] Comment on above: Asymptomatic menopau se (Primary Dx) Start: 10-02-2023 Orders Only Mark love DO Work Phone: [facility] Start: 09-30-2023 End: 09-30-2023 ambulatory MARK REY [facility] Start: 09-30-2023 End: 09-30-2023 Office outpatient visit 25 minutes Mark Rey DO Work Phone: [facility] Comment on above: Essential hypertensi on (Primary Dx); Mixed hyperlipidemia; Obesity (BMI 30.0-34.9); Recurrent acute serous otitis media of right ear; Obesity, morbid (CMS-HCC); Leukocytosis, unspecified type Start: 09-30-2023 End: 09-30-2023 [facility] Start: 09-03-2023 Refill Kaylynn Silva [facility] Comment on above: Essential hypertensi on Start: 03-05-2023 End: 03-12-2023 Evaluation and management of inpatient ALICJA REY [facility] Start: 10-18-2020 End: 10-19-2020 Patient encounter procedure NONE LISTED REQUEST Facility: Start: 09-25-2020 End: 09-26-2020 Patient encounter procedure NONE LISTED REQUEST Facility: Start: 03-12-2020 End: 03-12-2020 Patient encounter procedure KARY GRECONORRAJ Facility: Procedures Date Procedure Procedure Detail Performing [...] of cholecystectomy History of cholecystectomy Kaylynn Silva [facility] Start: 03-27-2023 Adult depression screening assessment Kaylynn Silva [facility] Plan of Treatment Date Care Activity Detail Author Start: 03-12-2030 DTaP,Tdap and Td Vaccines (2 - Td or Tdap) DTaP,Tdap and Td Vaccines (2 - Td or Tdap) [facility] Start: 07-12-2025 Depression Screening Depression Scre ening [facility] Start: 07-12-2025 Fall Risk Screening Fall Risk Screen ing [facility] Start: 07-12-2025 Tobacco Screening Tobacco Screening [facility] Start: 06-08-2025 Adult BMI Screening Adult BMI Screen ing [facility] Start: 06-08-2025 Depression Screening Depression Scre ening [facility] Start: 06-08-2025 Fall Risk Screening Fall Risk Screen ing [facility] Start: 06-08-2025 Tobacco Screening Tobacco Screening [facility] Start: 05-02-2025 Adult BMI Screening Adult BMI Screen ing [facility] Start: 04-26-2025 Depression Screening Depression Scre ening [facility] Start: 04-26-2025 Fall Risk Screening Fall Risk Screen ing [facility] Start: 04-26-2025 Tobacco Screening Tobacco Screening [facility] Start: 02-22-2025 End: 02-22-2025 Patient encounter procedure 02/22/2025 3:20 PM EDT Office Visit [facility] [address] [place] [address] [facility] Start: 02-18-2025 Medicare Annual Well ness Visit Medicare Annual Wellness Visit [facility] Start: 09-30-2024 Adult BMI Screening Adult BMI Screen ing [facility] Start: 09-30-2024 Depression Screening Depression Scre ening [facility] Start: 09-30-2024 Fall Risk Screening Fall Risk Screen ing [facility] Start: 09-30-2024 Tobacco Screening Tobacco Screening [facility] Start: 07-12-2024 End: 07-12-2024 Patient encounter procedure 07/12/2024 4:00 PM EST Office Visit [facility] [address] [place] [address] Mark Rey, [address], [place] [address] [facility] Start: 07-01-2024 End: 07-01-2025 MR Lumbar spine WO contrast MR lumbar spine without contrast Imaging Routine Lumbar radiculopathy, chronic Expected: 07/01/2024, Expires: 07/01/2025 [facility] Work Phone: Comment on above: Expected: 07/01/2024 , Expires: 07/01/2025 Start: 06-08-2024 End: 06-08-2024 Patient encounter procedure 06/08/2024 4:15 PM EDT Office Visit [facility] [address] [place] [address] Mark Rey DO [address], [place] [address] [facility] Start: 05-02-2024 COVID-19 Vaccine ( season) COVID-19 Vaccine ( season) [facility] Start: 05-02-2024 COVID-19 Vaccine ( season) COVID-19 Vaccine ( season) [facility] Start: 05-02-2024 Influenza vaccination Influenza Vacc ine [facility] Start: 03-27-2024 Adult BMI Screening Adult BMI Screen ing [facility] Start: 03-27-2024 Depression Screening Depression Scre ening [facility] Start: 03-27-2024 Tobacco Screening Tobacco Screening [facility] Start: 03-03-2024 Fall Risk Screening Fall Risk Screen ing [facility] Start: 02-19-2024 End: 02-19-2024 Patient encounter procedure 02/19/2024 3:30 PM EDT Office Visit [facility] [address] [place] [address] [facility] Start: 02-07-2024 Medicare Annual Well ness Visit Medicare Annual Wellness Visit [facility] Start: 11-06-2023 End: 11-06-2023 ambulatory 11/06/2023 4:10 PM EST Support Visit [facility] [address] [place] [address] Mark Rey, DO [address], [place] [address] [facility] Start: 09-30-2023 End: 09-30-2023 Patient encounter procedure 09/30/2023 3:40 PM EST Office Visit [facility] [address] [place] [address] Mark Rye, DO [address], [place] [address] [facility] Start: 05-02-2023 COVID-19 Vaccine ( season) COVID-19 Vaccine ( season) [facility] Start: 05-02-2023 Influenza vaccination Influenza Vacc ine [facility] Start: 1989 Administration of varicella zoster vaccine Zoster (Shingles) Vaccine (1 of 2) [facility] Start: 1957 Adult BMI Follow Up Plan Adult BMI Follow Up Plan [facility] End: 07-12-2025 CBC panel - Blood by Automated count CBC Lab Routine Leukocytosis, unspecified type 1 Occurrences starting 07/12/2024 until 07/12/2025 [facility] Comment on above: 1 Occurrences starti ng 07/12/2024 until 07/12/2025 End: 07-12-2025 Comprehensive metabolic 2000 panel - Serum or Plasma Comprehensive metabolic panel Lab Routine Essential hypertension 1 Occurrences starting 07/12/2024 until 07/12/2025 [employer] Work Phone: Comment on above: 1 Occurrences starti ng 07/12/2024 until 07/12/2025 Immunizations Immunization Date Immunization Notes Care Provider Stacey de leon 03-12-2020 tetanus toxoid, redu ricco diphtheria toxoid, and acellular pertussis vaccine, adsorbed Kaylynn [facility] 07-05-2019 Influenza, injectabl e, Madin Suzy Canine Kidney, quadrivalent with preservative Kaylynn Shira [facility] 07-05-2019 influenza virus vaccine, unspecified formulation Kaylynn Shira [facility] 06-26-2018 influenza, high dose seasonal, preservative-free Kaylynn Shira [facility] 07-18-2017 Influenza, injectabl e, Madin Suzy Canine Kidney, preservative free, quadrivalent Kaylynn Shira [facility] Payers Date Payer Category Payer Unknown 2018 Medicare ANTHEM MEDICARE AN[employer]M MEDICARE ADVANTAGE [id number] 2018-Present [phone] [address] [place] [address] [id number] 2018 Medicare HMO AN[employer]M MEDICARE [id number] 1959 Self-pay 1959 Unknown [id number] 1939 Unknown [id number] 1939 Unknown [id number] [id number] 1939 Unknown [id number] [id number] 9 1939 Unknown [id number] [id number] 6 1939 Unknown [id number] 2.16.840.1.437466.3.579.2.128 6 1939 Unknown [id number] [id number] 6 1939 Unknown [id number] 2.16.840.1.145209.3.579.2.128 6 1939 Unknown [id number] 2.16.840.1.170551.3.579.2.128 6 1939 Unknown [id number] 2.16.840.1.163109.3.579.2.128 6 1939 Unknown [id number] 2.16.840.1.121372.3.579.2.128 6 1939 Unknown [id number] 2.16.840.1.660337.3.579.2.128 6 1939 Unknown [id number] 2.16.840.1.267083.3.579.2.128 6 1939 Unknown [id number] 2.16.840.1.483594.3.579.2.128 6 1940 Unknown [id number] 1940 Unknown [id number] 6 1940 Unknown [id number] 6 1940 Unknown [id number] 6 1940 Unknown [id number] 1940 Unknown [id number] Unknown [id number] Unknown [id number] Social History Date Type Detail Facility Start: 09-09-[address] [facility] Never smoked tobacco [facility] Start: 09-09-2022 Tobacco use and exposure Smoke less tobacco non-user [facility] Start: 03-27-2023 End: 07-12-2024 Alcohol intake Lifetime non-drinker (finding) [facility] Start: 02-06-2023 End: 07-12-2024 History of Social function [facility] Start: 02-06-2023 End: 07-12-2024 Social connection and isolation panel [facility] Do you belong to any clubs or organizations such as orthodoxy groups, unions, fraternal or athletic groups, or school groups? Yes [facility] Are you now , , , , never or living with a partner? [facility] How often to you hav e a drink containing alcohol? Never [facility] How many standard dr inks containing alcohol do you have on a typical day? Patient does not drink [facility] How hard is it for y ou to pay for the very basics like food, housing, medical care, and heating Not very hard [facility] Do you feel stress - tense, restless, nervous, or anxious, or unable to sleep at night because your mind is troubled all the time - these days [OSQ] Only a little [facility] Start: 1940 Sex Assigned At Not on file [place] [facility] Has the electric, ga s, oil, or water company threatened to shut off services in your home in past 12Mo No [facility] [employer] [facility] Start: 1940 Sex Assigned At Female F [facility] Start: 04-21-2020 Sex Female (finding[facility] 09-30-2023 to 07-27-2024 Telephone Encounter [...] a handicap placard please and thank you [place], letter printed Will be in for pickle maker documented in this encounter [facility] 07-27-2024 Telephone encount er Note Patient called asking if you would be able to write her out a handicap placard please and thank you [facility] 07-27-2024 Telephone encount er Note Okay, letter printed [facility] 07-27-2024 Telephone encount er Note Will be in for pickle maker [facility] 07-12-2024 History of Presen t illness [...] by mouth daily. documented in this encounter [facility] 07-08-2024 Miscellaneous Notes Formattin g of [...] not heard anything from her insurance or [facility] that I needed to call somebody do expedite this. It started 3 months ago but she had to go through physical therapy, again because her insurance company required it not me. Her anger his misdirected. I can send her to pain management in the meantime if she is having that much pain LM on VM documented in this encounter [facility] 07-08-2024 Telephone encount er Note Patient [...] no way how to treat a patient [email or web address] 07-08-2024 Telephone encount er Note If she is upset/frustrated that she can not get her MRI then she needs to be upset with the insurance company and not me. I have not heard anything from her insurance or [facility] that I needed to call somebody do expedite this. It started 3 months ago but she had to go through physical therapy, again because her insurance company required it not me. Her anger his misdirected. I can send her to pain management in the meantime if she is having that much pain [email or web address] 07-08-2024 Telephone encount er Note LM on VM [email or web address] 06-08-2024 History of Presen t illness Narrative [...] her feet. She got compression hose at [facility] and wants to know if [...] total) before bedtime. documented in this encounter [facility] 06-02-2024 Miscellaneous Notes Formattin g of this [...] called back and said, please send to [facility] Not letting me print out the order for support stockings without a [id number] visit in her last visit was about her back. Looks like she will have to come in for a visit to get the support stockings are she can buy some [id number] She comes in 06/08 do you want to wait? Yes I guess she has a savings card that she can use to buy them so that's what she's doing documented in this encounter [facility] 06-02-2024 Telephone encount er Note Patient is starting to have swelling in her legs and ankles, she's doing her PT but is concerned since she can see how swollen they are. She wanted to know if you had any recommendations [facility] 06-02-2024 Telephone encount er Note She should try compression hose. I can make a prescription for her [facility] 06-02-2024 Telephone encount er Note She agrees, wants them sent to [facility]. She wants to know why they are swelling, its painful. She can hardly lay down without pain [facility] 06-02-2024 Telephone encount er Note [facility] does not do them from what patient called back and said, please send to [facility] 06-02-2024 Telephone encount er Note Not letting me print out the order for support stockings without a duwg-fc-galm visit in her last visit was about her back. Looks like she will have to come in for a visit to get the support stockings are she can buy some [id number] [facility] 06-02-2024 Telephone encount er Note She comes in 06/08 do you want to wait? [facility] 06-02-2024 Telephone encount er Note Yes [facility] 06-02-2024 Telephone encount er Note I guess she has a savings card that she can use to buy them so that's what she's doing [facility] 11-06-2023 History of Presen t illness Narrative Vianca presents for dexa scan. She had one in [place] years ago and thinks it was ok. Her mother didn't break her hip. documented in this encounter [facility] 09-30-2023 History of Presen t illness Narrative Subjective Patient ID: Vianca Jackson is a 83 y.o. female. Vianca presents for CV recheck. She recently moved out of her daughter's home and into a [place] [facility]. She loves it there. It is cheaper [...] Future Check CBC documented in this encounter [facility] Evaluation note Diagnosis Essential hypertension Unspecified essential hypertension documented [facility] this encounter [facility] Diagnosis Essential hypertension- Primary Unspecified essential hypertension Mixed hyperlipidemia Obesity (BMI 30.0-34.9) Recurrent acute serous otitis media of right ear Obesity, morbid (CMS-HCC) Morbid obesity Leukocytosis, unspecified type [facility] Diagnosis Asymptomatic menopause- Primary documented in this encounter [facility] note[facility] assessment information available [facility] Work Phone: Evaluation note* Diagnosis Acute left-sided low back pain with left-sided sciatica- Primary Pedal edema Edema Piriformis syndrome of left side documented [facility]* Diagnosis Essential hypertension Unspecified essential hypertension documented [facility] Diagnosis Acute left-sided low back pain with left-sided sciatica- Primary [facility] Diagnosis Lumbar radiculopathy, chronic- Primary [facility] Diagnosis Acute left-sided low back pain with left-sided sciatica- Primary Pedal edema Edema Piriformis syndrome of left side Obesity, morbid (CMS-HCC) Morbid obesity Essential hypertension Unspecified essential hypertension Hypokalemia Hypopotassemia Leukocytosis, unspecified type [facility] Essential hypertension Unspecified essential hypertension [facility] [...] FoundNo Family History Records Found Advance Directives No Advanced Directives Records Found Advance Directive Response Recorded Date/ Time Advance Directives No May 3:41pm Chief Complaint and Reason for Visit Chief Complaint Left side sciatica p ain Additional Source Comments INFORMATION SOURCE (unrecogn ized section and content) DATE CREATED AUTHOR 10/17/2020 [facility] DATE CREATED AUTHOR AUTHOR'S ORGANIZ ATION 02/05/2022 [facility] DATE CREATED AUTHOR AUTHOR'S ORGANIZ ATION 03/27/2023 [facility] DATE CREATED AUTHOR AUTHOR'S ORGANIZ ATION 03/05/2024 [facility] DATE CREATED AUTHOR AUTHOR'S ORGANIZ ATION 05/28/2024 [facility] DATE CREATED AUTHOR AUTHOR'S ORGANIZ ATION 07/14/2024 [facility] DATE CREATED AUTHOR AUTHOR'S ORGANIZ ATION 07/14/2024 [facility] DATE CREATED AUTHOR AUTHOR'S ORGANIZ ATION 08/25/2024 [facility] Reason for Visit (unrecogniz ed section and content) Reason Onset Date Comments Med Refill 09/03/2023 Reason Comments Hyperlipidemia Hypertension Reason Comments Hip Pain Reason Onset Date Comments Med Refill 06/11/2024 Reason Comments Med Refill Reason Comments Follow-up Reason Onset Date Comments Med Refill 08/06/2024 Care Teams (unrecognized sec tion and content) Cert Occupational Therapy Asst Relationship Specialty Start Date End Date Mark Rey DO [address] [place] [address] PCP - General Family Medicine 04/21/20 Cert Occupational Therapy Asst Relationship Specialty Start Date End Date Mark Rey DO [address] [place] [address] PCP - General Family Medicine 04/21/20 Cert Occupational Therapy Asst Relationship Specialty Start Date End Date Mark Rey DO [address] [place] [address] PCP - General Family Medicine 04/21/20 Cert Occupational Therapy Asst Relationship Specialty Start Date End Date Mark Rey DO [address] [place] [address] PCP - General Family Medicine 04/21/20 Team Status: Active Member Role Status Dates Mark Rey DO Primary Care Provider Active Team Status: Inactive Member Role Status Dates Alivia Hogue APRN Attending Provider Active Start: May 11, 2024 End: May 11, 2024 Mark Rey DO Primary Care Provider Active Start: May 11, 2024 End: May 11, 2024 Cert Occupational Therapy Asst Relationship Specialty Start Date End Date Mark Rey DO [address] [place] [address] PCP - General Family Medicine 04/21/20 Cert Occupational Therapy Asst Relationship Specialty Start Date End Date Mark Rey DO [address] [place] [address] PCP - General Family Medicine 04/21/20 Cert Occupational Therapy Asst Relationship Specialty Start Date End Date Mark Rey DO [address] [place] [address] PCP - General Family Medicine 04/21/20 Cert Occupational Therapy Asst Relationship Specialty Start Date End Date Mark Rey DO [address] [place] [address] PCP - General Family Medicine 04/21/20 Cert Occupational Therapy Asst Relationship Specialty Start Date End Date Mark Rey DO [address] [place] [address] PCP - General Family Medicine 04/21/20 Cert Occupational Therapy Asst Relationship Specialty Start Date End Date Mark Rey DO [address] [place] [address] PCP - General Family Medicine 04/21/20 Cert Occupational Therapy Asst Relationship Specialty Start Date End Date Mark Rey DO [address] [place] [address] PCP - General Family Medicine 04/21/20 Cert Occupational Therapy Asst Relationship Specialty Start Date End Date Mark Rey DO [address], [place] [address] PCP - General Family Medicine 04/21/20 Cert Occupational Therapy Asst Relationship Specialty Start Date End Date Mark Rey DO [address], [place] [address] PCP - General Family Medicine 04/21/20 Cert Occupational Therapy Asst Relationship Specialty Start Date End Date Mark Rey DO [address], [place] [address] PCP - General Family Medicine 04/21/20 Cert Occupational Therapy Asst Relationship Specialty Start Date End Date Mark Rey DO [address] [place] [address] [address] PCP - General Family Medicine 04/21/20 Goals [...] BE BASED ON THE PRIMARY CLINICAL RECORDS. [facility]. provides no warranty or guarantee of the accuracy or completeness of information in this document.
--- NOTE | 2024-09-02 11:23 | P.CN_ITS ---
Consult Note: HPI Data of Consult Patient: known to practice within the last 3 years Consult date: 07/26/24 Requesting Physician: Juliana Rebollar NP Primary Care Provider: SCOTT DEL VALLE Consult Narrative Reason for consult: left low back pain Narrative: Vianca Jackson 84 year old female who presents for evaluation. longstanding low back L>R and bilateral lower extremity pain. has completed PT >6 weeks. recently underwent lumbar MRI with results below and lumbar/sacral xrays. uses otc pain meds as needed. is not interested in medication management due to side effects. recently underwent left L4/5 L5/S1 TFESI with 100% improvement ongoing. cornelia now 16%. pain 0/10 increasing to 0/10. cc:: CC: Juliana Rebollar NP Review of Systems ROS Status of ROS 10 or more systems reviewed and unremark able except as noted in history and below Musculoskeletal Reports: back pain, extremity pain and joint pain Meds Home Medications and Allergies Home Medications ?Medication ?Instructions ?Recorded ?Confirmed ?Type amlodipine 5 mg tablet 5 mg PO DAILY 05/09/24 08/16/24 History atorvastatin 10 mg tablet 10 mg PO DAILY 05/09/24 08/16/24 History ibuprofen 600 mg tablet 600 mg PO Q12H PRN pain 05/09/24 08/16/24 History lisinopril 40 mg tablet 40 mg PO DAILY 05/09/24 08/16/24 History acetaminophen 325 mg tablet 650 mg PO Q6H PRN pain 07/26/24 08/16/24 History (Tylenol) celecoxib 200 mg capsule (Celebrex) 200 mg PO BID 07/26/24 08/16/24 History fluticasone propionate 50 1 spray intranasal DAILY PRN 07/26/24 08/16/24 History mcg/actuation nasal allergy symptoms spray,suspension (Flonase Allergy Relief) furosemide 40 mg tablet (Lasix) 40 mg PO DAILY 07/26/24 08/16/24 History magnesium aspart,citrate,oxide 400 mg PO DAILY 07/26/24 08/16/24 History multivitamin 1 tab PO DAILY 07/26/24 08/16/24 History spironolactone 50 mg tablet 50 mg PO DAILY 07/26/24 08/16/24 History (Aldactone) tizanidine 4 mg capsule (Zanaflex) 4 mg PO Q8H 07/26/24 08/16/24 History Allergies Allergy/AdvReac Type Severity Reaction Status Date / Time No Known Drug Allergies Allergy Verified 08/16/24 10:42 Exam Constitutional Documenting provider has reviewed patient's vital signs: yes Common normals: no apparent distress, oriented x3, healthy appearing, alert and well nourished General appearance: cooperative HENMT Common normals: normocephalic, hearing grossly normal bilaterally and moist oral mucous membranes Head and scalp: normocephalic Eye Common normals: PERRL Pupil: PERRL Neck & C-Spine Common normals: full ROM General: normal visual inspection Chest Common normals: inspection of chest normal Respiratory Common normals: normal respiratory effort, no retractions and no use of accessory muscles Back & Pelvis Lumbar spine/lower back: ROM limited and straight leg raise negative bilaterally; no pain with ROM and straight leg raise negative right Sacroiliac joints: SI joints normal Other: negative positive colton(patricks), gaenslens, thigh thrust, compression test strength 5/5 in BLE mildly positive facet loading Extremity Common normals: normal to inspection and full ROM Neuro Common normals: oriented x3, CN's II-XII intact bilaterally, moves all extremities, no focal motor deficits, no sensory deficits noted, deep tendon reflexes 2+ bilaterally and gait normal Sensorium/orientation: alert Motor exam: strength 5/5 throughout and no movement abnormalities noted Psych Common normals: mental status grossly normal, thought process normal, affect normal, speech normal and activity/motor behavior normal Attitude: evasive and agitated; not calm and not aggressive Speech: normal speech Thought process: normal thought process Results Imaging Lumbar MRI : Attestation: I have reviewed the pertinent imaging results. Radiologist's impression: 12-L1: Early degenerative disc disease is present without focal protrusion or neural impingement. L1-L2: Mild foramen narrowing bilaterally without significant central canal narrowing. Mild diffuse disc bulging without disc height reduction. Mild degenerative facet arthropathy bilaterally. L2-L3: Mild central canal and moderate right foramen narrowing. Mild left foramen narrowing. Moderate diffuse disc bulging and mild disc height reduction. Mild-moderate degenerative facet arthropathy bilaterally. L3-L4: Moderate central canal narrowing. Moderate-marked right foramen, moderate left foramen narrowing. Prominent posterior disc osteophyte complex and moderate disc height reduction. Moderate degenerative facet arthropathy bilaterally. L4-L5: Mild central canal narrowing. Mild right, moderate left foramen narrowing. Moderate diffuse disc bulging and moderate disc height reduction. Marked degenerative facet arthropathy, left greater than right. L5-S1: Marked left foramen narrowing. No significant central canal or right foramen narrowing. Moderate diffuse disc bulging eccentric to the left. Moderate right, marked left degenerative facet arthropathy. Additional Findings Additional findings: If on a controlled substance or opioids, I have checked an [place]AR[place] report on this patient and there are no aberrancies noted in the prescribing history.??If on a controlled substance or opioid a drug screen was completed and reviewed within the last year, and if there has not been a drug screen completed we ordered one today to monitor higher risk, state monitored pain medication use. As part of providing excellent, safe, comprehensive care, the following was completed at our patient's visit: 1. A medication reconciliation and review to ensure accurate knowledge of current/active medications, including asking our patients to inform us about any [id number]-tfq-avrizcs medications or herbal remedies/nutritional supplements/alternative remedies. 2. A review to specifically ensure our patients have had annual screening for screening for depression, screening for tobacco use, and screening for unhealthy alcohol use. For concerning screenings had a discussion with the patient, provided patient education, and recommended follow-up with primary care provider when appropriate. If patient noted with a risk of falling, they received education on strength, gait, and balance training to prevent future risk of falling. Assessment and Plan Assessment and Plan (1) Lumbar stenosis with neurogenic claudication: (2) Sacroiliitis: (3) Lumbar spondylosis: Plan pain well controlled with interventional therapy continue HEP as tolerated f/u 3 months, sooner if needed as discussed
== END 2024-09-02 10:59 | disposition home or self-care (01) ==
LOC: PM 10:58
PROVIDERS: PCP Family Medicine; Visit Provider Nurse Practitioner
DX: M48.062 Spinal stenosis, lumbar region with neurogenic claudication (principal); M46.1 Sacroiliitis, not elsewhere classified; M47.816 Spondylosis without myelopathy or radiculopathy, lumbar region
CPT/HCPCS: G0463